=== PATIENT | male | born 1945 | race Caucasian/White ===

== ENCOUNTER → 2019-09-25 10:25 | Outpatient (CLI) | payer MEDICARE, BC, SELFPAY ==
--- NOTE | ~2019-09-25 | CT_ITS ---
EXAMINATION: CT chest wo con DATE: 09/25/2019 10:58 INDICATION: Abnormal weight loss, lung nodule, history of lung cancer TECHNIQUE: Computed tomography (CT) of the chest was performed without intravenous contrast. The dose -length product (DLP) was 544.76 mGy-cm. Automated exposure control and iterative reconstruction tech [employer] were employed. COMPARISON: 02/15/2017 FINDINGS: There is a stable paramediastinal/left hilar mass, consistent with treated malignancy. Ther e is mild to moderate emphysema. There are trace pleural effusions. No pneumothorax is identified. A pleural-based lipoma is noted on the right. The heart size is normal. There are changes of coronary a rtery bypass grafting. Stones are present in the nondistended gallbladder. There is moderate thoracic spondylosis. IMPRESSION: 1. Stable left paramediastinal/left hilar mass, consistent with treated malignancy. No new lung findi ngs identified. 2. Mild to moderate emphysema. Reviewed, dictated and finalized at location A. [employer]IC MOTORMAN IMPRESSION: 1. Stable left paramediastinal/left hilar mass, consistent with treated maligna ncy. No new lung findings identified. 2. Mild to moderate emphysema.
== END ==
PROVIDERS: PCP Internal Medicine; Visit Provider Internal Medicine
DX: R63.4 Abnormal weight loss (principal); R91.1 Solitary pulmonary nodule; J43.9 Emphysema, unspecified
CPT/HCPCS: 71250

== ENCOUNTER → 2020-04-07 10:51 | Outpatient (CLI) | payer MEDICARE, BC, SELFPAY ==
--- NOTE | ~2020-04-07 | XR_ITS ---
EXAMINATION: XR chest 2V EXAM DATE: 04/07/2020 11:25 INDICATION: Triple bypass. Chest congestion, leg swelling. TECHNIQUE: Frontal and lateral projections of the chest obtained and reviewed. Comparison is made to prior examination from 07/11/2019. FINDINGS: The cardiac silhouette is enlarged. Cardiac silhouette is stable in size compared to prior exam. There is pulmonary vascular congestion. Left hilar prominence again noted, patient has known t reated malignancy correlating with prior reports. Left pleural blunting which is probably pleural eff usion, is new compared to prior study. Sternotomy wires are present without findings to suggest chambers al dehiscence. There is no pneumothorax suspected. No evidence of acute confluent consolidation or pn eumothorax. There are no osseous abnormalities identified. IMPRESSION: 1. Cardiomegaly, pulmonary vascular congestion. Possible mild pulmonary edema. 2. Left hilar masslike opacity, patient's known malignancy. 3. Small left pleural effusion. Reviewed, dictated and finalized at location A.
== END ==
PROVIDERS: PCP Internal Medicine; Visit Provider Internal Medicine
DX: R06.00 Dyspnea, unspecified (principal); I51.7 Cardiomegaly; J90 Pleural effusion, not elsewhere classified
CPT/HCPCS: 71046

== ENCOUNTER 2020-12-21 10:47 | Emergency (ER) | payer MEDICARE, BC, SELFPAY ==
[2020-12-21] VITALS (7 sets, daily range): BP systolic 129–145; BP diastolic 75–99; PULSE 93–105; RESP 18–24; TEMP 36.4–36.7; O2SAT 26–100
--- NOTE | ~2020-12-21 | CT_ITS ---
EXAMINATION: CT abdomen pelvis w con DATE: 12/21/2020 12:46 INDICATION: Abdominal pain and vomiting TECHNIQUE: Computed tomography (CT) of the abdomen and pelvis was performed with 100 cc Omnipaque 350 intravenous contrast. The dose-length product was 677.39 mGy-cm. Automated exposure control and iter ative reconstruction technique were employed. COMPARISON: CT dated 05/01/2028. FINDINGS: Moderate left pleural effusion. Compressive atelectasis left lung base. Trace right pleural effusion. Moderate atherosclerosis without evidence for aneurysm. Fatty infiltration of the liver. There are gallstones. The spleen, pancreas, adrenal glands are unrem arkable. There is renal atrophy. Small subcentimeter hypodensities of the kidneys, most likely benign cysts. There are renal arterial calcifications. There is nonspecific trace fluid in the paracolic gu tters and pelvis. There is right inguinal hernia containing a segment of the bladder. There is mild b ladder wall thickening, although not well distended. Colonic diverticulosis without evidence for dive rticulitis. Normal appendix. No lymphadenopathy. Moderate lumbar spondylosis. No lytic or blastic les ions. There is a small amount of free fluid in the right inguinal canal. IMPRESSION: 1. Right inguinal hernia containing a segment of the bladder. There is additional fluid in the right inguinal canal. 2: Moderate left pleural effusion. Trace right effusion. 3: Hepatic steatosis. 4: Small amount of free fluid in the paracolic gutters and pelvis. 5: Cholelithiasis. Reviewed, dictated and finalized at location A. IMPRESSION: 1. Right inguinal hernia containing a segment of the bladder. There is addition al fluid in the right inguinal canal. 2: Moderate left pleural effusion. Trace right effusion. 3: Hepatic steatosis. 4: Small amount of free fluid in the paracolic gutters and pelvis. 5: Cholelithiasis.
--- NOTE | ~2020-12-21 | US_ITS ---
US abdomen limited INDICATION: Abdominal pain. PROCEDURE: Realtime right upper abdominal ultrasound. COMPARISON: CT dated 12/21/2020 FINDINGS: The pancreas is normal without focal mass or pancreatic ductal dilation. Liver echotexture is normal without focal mass or intrahepatic biliary dilatation. There is normal directional flow i n the portal vein. There are gallstones with mild gallbladder wall thickening. Common bile duct measures 6 mm. No sono graphic Helm's sign. IMPRESSION: 1: Cholelithiasis with gallbladder wall thickening. Consider cholecystitis in the appropriate clinica l setting. Reviewed, dictated and finalized at location A. IMPRESSION: 1: Cholelithiasis with gallbladder wall thickening. Consider cholecystitis in t he appropriate clinical setting.
--- NOTE | 2020-12-21 11:26 | ED.ABDPAIN ---
HPI - Abdominal Pain General Chief Complaint: Abdominal Pain Stated Complaint: abd pain Time Seen by Provider: 12/21/20 10:59 Source: patient Mode of arrival: wheelchair Limitations: no limitations History of Present Illness HPI narrative: This is a 75 year old male that presents to the ER for nausea and vomiting x 1 week. Associated with dull abdominal pain which is intermittent. Worse after eating. Also reports diarrhea. Denies fever, recent antibiotic use, dysuria, hematuria, or hematochezia. Related Data Home Medications Medication Instructions Recorded Confirmed carvedilol 6.25 mg tablet 6.25 mg PO Q12H 07/02/19 10/08/20 clopidogrel 75 mg tablet 75 mg PO DAILY 07/02/19 10/08/20 sacubitril 49 mg-valsartan 51 mg 1 tablet PO BID 07/02/19 10/08/20 tablet warfarin See Rx Instructions .ROUTE .COMPLEX 12/21/20 Allergies Allergy/AdvReac Type Severity Reaction Status Date / Time venom-honey bee Allergy Unknown Swelling Verified 12/21/20 11:12 of Lip/Tongue/Throat Review of Systems Review of Systems: Narrative: CONSTITUTIONAL: Denies fever GASTROINTESTINAL: Reports abdominal pain, nausea, vomiting, and diarrhea. GENITOURINARY: Denies dysuria or hematuria. All systems reviewed & are unremarkable except as noted in HPI and below PMFSH Past Medical History Medical History (Updated 12/21/20 @ 15:32 by Candace Wilks PA-C) CHF (congestive heart failure) COPD (chronic obstructive pulmonary disease) Coronary artery disease involving [place] coronary artery of [place] heart Hyperlipidemia PAD (peripheral artery disease) Surgical History Surgical History (Updated 12/21/20 @ 11:28 by Candace Wilks PA-C) Hx of CABG Social History Social History Smoking status: Former smoker Smoking end date: 08/15/05 Alcohol intake: current Exam Narrative: Exam Narrative: GENERAL: Elderly, well-nourished, and in no acute distress. HEAD: Normocephalic, atraumatic. EYES: EOMI. ENT: Mucous membranes moist. Oropharynx without tonsillar hypertrophy exudate or other lesions. CHEST: Clear to auscultation. No respiratory distress. No wheezes rales or rhonchi HEART: Regular rate and rhythm. No murmur heard. Normal peripheral pulses. ABDOMEN: Soft, nondistended, normal active bowel sounds. Mild tenderness to palpation throughout the abdomen, without guarding. No CVA tenderness EXTREMITIES: Normal range of motion. No edema. SKIN: Warm, dry, no rash. NEURO: No focal deficits. Alert and oriented x3. PSYCH: Normal mood and affect Course Consultations Consultation #1: Spoke with Dr. Olsen about patient and workup who would like patient started on Cipro 500 twice daily for a week and low-fat diet. Will follow-up with patient in clinic Date: 12/21/20 Time: 15:27 Consultation #2: Spoke with Dr. Kern consulting engineer for Dr. Alex about patient and work-up Date: 12/21/20 Time: 15:27 Vital Signs Vital signs: Vital Signs Temperature 97.6 F 12/21/20 11:03 Pulse Rate 105 H 12/21/20 11:03 Respiratory Rate 23 H 12/21/20 11:03 Blood Pressure 144/86 H 12/21/20 11:03 Pulse Oximetry 98 12/21/20 11:03 Temperature 98.1 F 12/21/20 15:01 Pulse Rate 99 12/21/20 15:01 Respiratory Rate 24 H 12/21/20 15:01 Blood Pressure 145/81 H 12/21/20 15:01 Pulse Oximetry 96 12/21/20 15:01 MDM - Abdominal Pain MDM Narrative Medical decision making narrative: Patient presents the emergency department for abdominal discomfort, nausea and vomiting. Intermittent over the last week. He is afebrile and nontoxic-appearing. Vitals are stable. Oxygen saturation is normal on room air. CBC is without leukocytosis. Does show normocytic anemia with hemoglobin of 13.1. Metabolic panel with transaminitis and hyperbilirubinemia. Lipase is normal. UA without evidence of infection. CT scan of the abdomen and pelvis shows a right inguinal hernia. Shows moderate left pleur
[2020-12-21 11:31] LABS: Basophils Absolute Auto 0.1 K/mm3 (0.0-0.1); Basophils Percent Auto 0.6 % (0.2-1.2); Eosinophils Absolute Auto 0.1 K/mm3 (0-0.3); Eosinophils Percent Auto 0.9 % (0-4.4); Hematocrit 38.9 % (42.0-52.0); Hemoglobin 13.1 g/dL (14.0-18.0); Immature Granulocyte Absolute 0.02 K/mm3 (0.00-0.031); Immature Granulocyte Percent A 0.3 % (0-0.5); Lymphocytes Absolute Auto 0.43 K/mm3 (0.9-3.2); Lymphocytes Percent Auto 5.4 % (18.3-44.2); Mean Corpuscular HGB Conc 33.7 g/dl (32-36); Mean Corpuscular Hemoglobin 31.5 pg (26-34); Mean Corpuscular Volume 93.5 fl (80-100); Mean Platelet Volume 9.7 fl (7.4-10.4); Monocytes Absolute Auto 0.8 K/mm3 (0.1-0.6); Monocytes Percent Auto 10.1 % (2.6-8.5); Neutrophils Absolute Auto 6.5 K/mm3 (1.3-6.7); Neutrophils Percent Auto 82.7 % (45.5-73.1); Platelet Count Result 209 k/mm3 (150-375); Red Blood Count 4.16 M/mm3 (4.6-6.20); Red Cell Distribution Width 15.9 % (11.5-14.5); White Blood Count 7.9 K/mm3 (4.5-10.0)
[2020-12-21 11:39] LABS: Add Urine Microscopic? YES; Appearance Urine Cloudy (Clear); Bilirubin Urine Negative (Negative); Blood Urine Negative (Negative); Color Urine Amber (Yellow); Glucose Urine UA Negative (Negative); Ketones Urine Trace mg/dL (Negative); Leukocyte Esterase Ur Negative LEU/UL (Negative); Mucus Urine Rare /lpf; Nitrate Urine Negative (Negative); Protein Urine 2+ mg/dL (Negative); RBC Urine 0-2 /hpf (0-2); Specific Grav Ur 1.019 (1.001-1.035); Squamous Epithelial Cell Urine Rare /hpf (Few); WBC Urine 0-3 /hpf
[2020-12-21 11:44] LABS: Alanine Aminotransferase 53 U/L (4-50); Albumin Level 4.2 g/dL (3.5-5.1); Alkaline Phosphatase 159 U/L (38-126); Anion Gap 8 mmol/L (8-16); Aspartate Amino Transferase 77 U/L (17-59); Bilirubin,Total 1.6 mg/dL (0.2-1.3); Blood Urea Nitrogen 27 mg/dL (9-20); Calcium 9.9 mg/dL (8.4-10.2); Carbon Dioxide 24 mmol/L (22-30); Chloride 103 mmol/L (98-107); Estimated CRCL calculation 55 ml/min; Estimated Glomerular Filt Rate 59; Glucose 108 mg/dL (75-110); Lipase 215 U/L (23-300); Potassium 4.6 mmol/L (3.4-5.0); Sodium 135 mmol/L (137-145)
[2020-12-21] MEDS: ONDANSETRON INJ 4 MG/2 ML VIAL IV PUSH (12:17)
[2020-12-21] MEDS: FAMOTIDINE 20 MG/2 ML VIAL IV PUSH (12:17)
== END 2020-12-21 16:38 | disposition home or self-care (01) ==
PROVIDERS: Emergency Provider Emergency Medicine; PCP Internal Medicine
DX: K80.20 Calculus of gallbladder without cholecystitis without obstruction (principal); J90 Pleural effusion, not elsewhere classified; I50.9 Heart failure, unspecified; J44.9 Chronic obstructive pulmonary disease, unspecified; I25.10 Atherosclerotic heart disease of native coronary artery without angina pectoris; E78.5 Hyperlipidemia, unspecified; I73.9 Peripheral vascular disease, unspecified; Z95.1 Presence of aortocoronary bypass graft; Z87.891 Personal history of nicotine dependence; K44.9 Diaphragmatic hernia without obstruction or gangrene; K76.0 Fatty (change of) liver, not elsewhere classified; Z79.01 Long term (current) use of anticoagulants
CPT/HCPCS: 36415; 74177; 76705; 80053; 81001; 83690; 85025; 96374; 96375; 99284; J0131; J2405; Q9967

== ENCOUNTER → 2021-01-17 06:26 | Outpatient (CLI) | payer MEDICARE, BC, SELFPAY ==
[2021-01-17 19:38] LABS: SARS-CoV-2 RNA PCR Negative
== END ==
PROVIDERS: PCP Internal Medicine; Visit Provider Internal Medicine
DX: Z01.818 Encounter for other preprocedural examination (principal); Z20.822 Contact with and (suspected) exposure to COVID-19
CPT/HCPCS: C9803; U0003; U0005

== ENCOUNTER 2021-05-14 09:44 | Emergency (ER) | payer MEDICARE, BC, SELFPAY ==
[2021-05-14 09:54] VITALS: BP 111/55; PULSE 92; RESP 14; TEMP 36.4; O2SAT 98
--- NOTE | 2021-05-14 09:55 | ED.GENADULT ---
HPI - General Adult General Chief complaint: Allergic Reaction Stated complaint: Poss Allergic Reaction Time Seen by Provider: 05/14/21 09:55 Source: patient and RN notes reviewed History of Present Illness HPI narrative: Patient is a 76-year-old male who presents the urgent care with his family member with complaints of left and right eye swelling with a rash to the left scalp. Patient states that it started on Tuesday after he mowed on Tuesday. Patient states that he has been taking Benadryl but it worsened overnight. States that the rash is burning and itchy. Denies of any trauma to the eye. Denies of any vision changes. No other acute complaints. No acute distress noted. Patient and family aware of the plan of care. Some parts of this dictation were generated by voice recognition software and may contain typographical and/or grammatical inaccuracies. Related Data Home Medications Medication Instructions Recorded Confirmed carvedilol 6.25 mg tablet 6.25 mg PO Q12H 07/02/19 05/14/21 clopidogrel 75 mg tablet 75 mg PO DAILY 07/02/19 05/14/21 sacubitril 49 mg-valsartan 51 mg 1 tablet PO BID 07/02/19 05/14/21 tablet potassium chloride [Klor-Con] 20 meq PO DAILY 05/14/21 05/14/21 sacubitril-valsartan [Entresto] 1 tablet PO BID 05/14/21 05/14/21 spironolactone 25 mg PO DAILY 05/14/21 05/14/21 Allergies Allergy/AdvReac Type Severity Reaction Status Date / Time venom-honey bee Allergy Unknown Swelling Verified 05/14/21 10:09 of Lip/Tongue/Throat Review of Systems Review of Systems: CONSTITUTIONAL: Denies fever, chills, or sweats. EYES: Reports of swelling to bilateral eyes with left eye drainage ENT: Denies rhinorrhea, congestion, sore throat, or otalgia. CARDIOVASCULAR: Denies chest pain, palpitations, or edema. RESPIRATORY: Denies cough or dyspnea. GASTROINTESTINAL: Denies abdominal pain, nausea, vomiting, or diarrhea. GENITOURINARY: Denies dysuria or hematuria. SKIN: Reports of an itchy burning rash to the scalp MUSCULOSKELETAL: Denies back pain, joint pain, or myalgia. NEUROLOGIC: Denies headache, numbness, or weakness. All other systems reviewed are negative, except as documented in HPI. PENDING SALE TO [facility] Past Medical History Medical History CHF (congestive heart failure) COPD (chronic obstructive pulmonary disease) Coronary artery disease involving [place] coronary artery of [place] heart Heart attack Heart disease History of blood clots Hx of cancer of lung Hyperlipidemia Lower extremity surgery planned PAD (peripheral artery disease) Surgical History Surgical History History of lung biopsy Hx of CABG Family History Family History Sibling , age 58 Brain cancer Social History Social History Smoking packs per day: 2 Smoking cigarettes per day: 40.0 Years smoked: 30 Smoking pack-years: 60.00 Smoking status: Former smoker Second hand tobacco smoke exposure: Yes Smoking end date: 08/15/05 Alcohol intake: current Alcohol use details: Social 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 There is no relevant family history pertinent to the patient complaint. Exam Narrative: GENERAL: This is a well-nourished, well-developed patient, in no apparent distress. HEAD: normocephalic, atraumatic. EYES: PERRL. Sclera clear/white. Vision is grossly intact. Mild to moderate fluid filled edema surrounding the left eye with clear to yellow drainage. Mild fluid-filled edema to the right lower eyelid without drainage. EARS: External ears normal NOSE: External nose normal with no obvious nasal discharge, nares without redness, n
[2021-05-14 10:12] VITALS: BP 111/55; PULSE 92; RESP 14; TEMP 36.4; O2SAT 98
== END 2021-05-14 10:40 | disposition home or self-care (01) ==
PROVIDERS: Emergency Provider Nurse Practitioner Family; PCP Internal Medicine
DX: L03.213 Periorbital cellulitis (principal); H10.9 Unspecified conjunctivitis; Z87.891 Personal history of nicotine dependence; J44.9 Chronic obstructive pulmonary disease, unspecified; I50.9 Heart failure, unspecified; I25.10 Atherosclerotic heart disease of native coronary artery without angina pectoris; E78.5 Hyperlipidemia, unspecified; I73.9 Peripheral vascular disease, unspecified; Z85.118 Personal history of other malignant neoplasm of bronchus and lung; Z86.2 Personal history of diseases of the blood and blood-forming organs and certain disorders involving the immune mechanism; Z95.1 Presence of aortocoronary bypass graft; I25.2 Old myocardial infarction
CPT/HCPCS: 99213; G0463

== ENCOUNTER 2021-10-14 14:23 | Outpatient (CLI) | payer MEDICARE, BC, SELFPAY ==
--- NOTE | ~2021-10-14 | XR_ITS ---
EXAMINATION: XR chest 2V EXAM DATE: 10/14/2021 14:55 INDICATION: K40.20 - Bilateral inguinal hernia, without obstruction o... TECHNIQUE: Frontal and lateral projections of the chest obtained and reviewed. Comparison is made to prior examination from 04/07/2020. FINDINGS: Sternotomy wires are present without findings to suggest sternal dehiscence. Left hilar. T reated malignancy appears stable in size. No sizable pleural effusion. No pneumothorax. There is mild cardiomegaly. IMPRESSION: 1. Stable treated left hilar malignancy. 2. Mild cardiomegaly. Reviewed, dictated and finalized at location B.
--- NOTE | 2021-10-14 14:30 | ECG_ITS ---
Measurements Intervals [place] Rate: 86 P: 61 LA: 216 QRS: -78 QRSD: 144 T: 90 QT: 420 QTc: 503 Interpretive Statements SINUS RHYTHM WITH FIRST DEGREE AV BLOCK MARKED LEFT AXIS DEVIATION [QRS AXIS < -30] ANTEROSEPTAL INFARCTION, AGE INDETERMINATE LATERAL T-WAVE ABNORMALITY, CONSIDER ISCHEMIA ABNORMAL ECG NO PREVIOUS ECG AVAILABLE FOR COMPARISON Electronically Signed On 10-14-2021 16:06:11 COMMERCIAL LENDING VICE PRESIDENT by Mike Messer M.D.
[2021-10-14 14:56] LABS: Basophils Percent Auto 0.5 % (0.2-1.2); Eosinophils Absolute Auto 0.2 K/mm3 (0-0.3); Eosinophils Percent Auto 2.3 % (0-4.4); Hematocrit 36.9 % (42.0-52.0); Hemoglobin 11.9 g/dL (14.0-18.0); Immature Granulocyte Absolute 0.02 K/mm3 (0.00-0.031); Immature Granulocyte Percent A 0.3 % (0-0.5); Lymphocytes Absolute Auto 0.67 K/mm3 (0.9-3.2); Lymphocytes Percent Auto 8.7 % (18.3-44.2); Mean Corpuscular HGB Conc 32.2 g/dl (32-36); Mean Corpuscular Hemoglobin 31.6 pg (26-34); Mean Corpuscular Volume 98.1 fl (80-100); Mean Platelet Volume 9.4 fl (7.4-10.4); Monocytes Absolute Auto 0.9 K/mm3 (0.1-0.6); Monocytes Percent Auto 11.3 % (2.6-8.5); Neutrophils Absolute Auto 5.9 K/mm3 (1.3-6.7); Neutrophils Percent Auto 76.9 % (45.5-73.1); Platelet Count Result 187 k/mm3 (150-375); Red Blood Count 3.76 M/mm3 (4.6-6.20); Red Cell Distribution Width 13.8 % (11.5-14.5); White Blood Count 7.7 K/mm3 (4.5-10.0)
[2021-10-14 15:06] LABS: INR 2.2; Partial Thromboplastin Time 36.6 SECONDS (22.3-36.8); Prothrombin Time 23.6 Seconds (11.1-14.7)
[2021-10-14 15:07] LABS: Anion Gap 11 mmol/L (8-16); Blood Urea Nitrogen 26 mg/dL (9-20); Calcium 9.3 mg/dL (8.4-10.2); Carbon Dioxide 23 mmol/L (22-30); Chloride 106 mmol/L (98-107); Estimated Glomerular Filt Rate > 60; Glucose 99 mg/dL (65-110); Sodium 140 mmol/L (137-145)
== END 2021-10-14 14:24 | disposition home or self-care (01) ==
LOC: ANHSURGERY 14:27
PROVIDERS: Anesthesiology; PCP Internal Medicine; Visit Provider Surgery
DX: K40.20 Bilateral inguinal hernia, without obstruction or gangrene, not specified as recurrent (principal); I50.9 Heart failure, unspecified; Z79.01 Long term (current) use of anticoagulants; I44.0 Atrioventricular block, first degree
CPT/HCPCS: 36415; 71046; 80048; 85025; 85610; 85730; 86850; 86900; 86901; 93005

== ENCOUNTER → 2021-10-17 00:05 | Outpatient (CLI) | payer MEDICARE, BC, SELFPAY ==
[2021-10-17 11:49] LABS: SARS-CoV-2 RNA PCR Negative
== END ==
PROVIDERS: PCP Internal Medicine; Visit Provider Surgery
DX: Z01.812 Encounter for preprocedural laboratory examination (principal); Z20.822 Contact with and (suspected) exposure to COVID-19
CPT/HCPCS: C9803; U0003; U0005

== ENCOUNTER 2021-10-21 00:13 | Day surgery (SDC) | payer MEDICARE, BC, SELFPAY ==
[2021-10-09 14:54] VITALS: BMI 27.8
--- NOTE | 2021-10-09 15:20 | PC.NURSE ---
Report to the Outpatient Waiting Room, entrance under the green pavilion located off [facility], at time _0700_ on date _10/21/21_. OR Time: _0900_. - You and your visitor will be asked a series of questions to screen for COVID 19 for your protection. - A mask is required within the hospital. One visitor will be allowed to accompany the patient into the hospital. Patients visitor will be instructed to remain with patient at all times or leave the building. We will allow the visitor to come back to the postoperative area when patient is ready. Preoperative COVID Testing Requirements: COVID TEST SCHEDULED FOR 10/17/21 @ 0815 COVID test must be conducted within 72 hours of surgery and patient is asked to isolate self from time of testing until procedure. You will go to the [facility] for your COVID testing. The [facility] is located at the corner of [address] [facility]. You will only be called if COVID results are positive and your surgeon may reschedule your elective surgery date. Patients may have clear liquids (water, carbonated beverages, clear teas, apple juice) until 3 hours prior to surgery (0600 AM) with a maximum of 20 ounces. - No food from midnight until time of surgery Take the following medications with a SIP of water the morning of surgery: _CARVEDILOL, SYMBICORT INHALER_ Medications to discontinue per DR. VITAL - CLOPIDOGREL 5 DAYS PRIOR TO SURGERY, LAST DOSE TO BE TAKEN ON 10/15/21, WARFARIN 4 DAYS PRIOR TO SURGERY, LAST DOSE TO BE TAKEN ON 10/16/21 Please no deodorant, or body powder the day of surgery. No jewelry (including any body piercings) or valuables the day of surgery, leave them at home. Please take a shower or bath the night before, or the morning of, surgery with an antibacterial soap. Wear comfortable, loose fitting clothing. Children are encouraged to wear pajamas. - Jewelry must be removed prior to entering the operating room. Rings and piercings that are not removed may be cut off. - The hospital will not accept responsibility for valuables. - Please leave all valuables, including medications, at home the day of surgery. If you are going home after surgery, a licensed tank wagon driver must drive you home. - NO public transportation without another adult. - We recommend that an adult stay with you for 24 hours following discharge. - We also recommend that you do not drive, make important decision, drink alcoholic beverages, or take any drugs that were not prescribed by your health care provider for at least 24 hours after your discharge time. Follow any additional instructions given to you from your surgeon. MONA SHOWER AM OF SURGERY Telephone instructions given to ___PT and asked if any additional questions and then verbalized understanding. Patient advised to call surgeon office or pre surgery nurse liaisonGONZÁLEZ [phone] if any additional questions.
--- NOTE | 2021-10-20 12:38 | WPDANESEPPF ---
Anes - Initial Pre Proc Eval Procedure: Operation Date: 10/21/21 09:00 Proposed Procedures p Bilateral Inguinal Hernia Repair - Ricci Olsen MD Date/Time: 10/20/21 12:38 Surgeon: Ricci Olsen MD Pre Op Diagnosis: Umair Ing Hernia Patient Data Age: 76 Gender: M Height: 1.68 m Weight: 78.18 kg Allergies Allergy/AdvReac Type Severity Reaction Status Date / Time venom-honey bee Allergy Severe Swelling Verified 10/21/21 07:46 of Lip/Tongue/Throat Home Medications Medication Instructions Recorded Confirmed Type carvedilol 6.25 mg tablet 6.25 mg PO Q12H 07/02/19 10/09/21 History clopidogrel 75 mg tablet 75 mg PO DAILY 07/02/19 10/09/21 History sacubitril 49 mg-valsartan 51 mg 1 tablet PO BID 07/02/19 10/09/21 History tablet spironolactone 12.5 mg PO DAILY 05/14/21 10/09/21 History atorvastatin 20 mg QAM 10/09/21 10/09/21 History budesonide-formoterol [Symbicort] 2 inh BID 10/09/21 10/09/21 History furosemide 20 mg QAM 10/09/21 10/09/21 History warfarin 4 mg HS 10/09/21 10/09/21 History Patient hx anesthesia problems: none Family hx anesthesia problems: none Results Review: All pre-operative results and documents have been reviewed as part of the pre-operative evaluation. [facility] Past Medical History Medical History (Updated 10/21/21 @ 07:44 by Aramis Alves DO) CHF (congestive heart failure) EF 42% as of 06/2021 COPD (chronic obstructive pulmonary disease) Coronary artery disease involving [place] coronary artery of [place] heart DVT (deep venous thrombosis) Heart attack Heart disease History of blood clots Hx of cancer of lung Hyperlipidemia Lower extremity surgery planned PAD (peripheral artery disease) PVD (peripheral vascular disease) Surgical History Surgical History (Updated 10/21/21 @ 07:44 by Aramis Alves DO) History of lung biopsy Hx of CABG x3, 2011 Family History Family History Sibling , age 58 Brain cancer Father Acute myocardial infarction Mother Dementia Social History Social History Smoking packs per day: 2 Smoking cigarettes per day: 40.0 Years smoked: 30 Smoking pack-years: 60.00 Smoking status: Former smoker Tobacco type: cigarettes Second hand tobacco smoke exposure: No Smoking end date: 08/15/05 Alcohol intake: current Drinks per week: 6 Alcohol use details: Social Substance use: never Substance use type: does not use Living arrangements: with family 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 Informed Consent: The patient's anesthetic plan and its attendant risks and benefits were discussed with the patient/family/POA. Questions were solicited and answers provided to the satisfaction of the patient/family/POA.
--- NOTE | 2021-10-20 13:14 | PM.IMHP ---
H&P: HPI History of Present Illness Date/Time: 10/20/21 13:14 Chief Complaint: Symptomatic inguinal hernias Narrative: patient is a 76-year-old man who has a long history of both coronary artery disease and cardiac valvular disease. He had a TAVR procedure last May. This improved his heart function significantly. He has also had coronary bypass grafting as well as coronary stentings. He normally takes both warfarin and Plavix. He was seen in the office last winter with symptomatic bilateral inguinal hernias. The right-sided hernia is large, the left-sided hernia is smaller but is the more symptomatic hernia. After speaking with his certified medical aide at [facility], his anticoagulation could not really be stopped until September. He is taken to surgery at this time for bilateral inguinal hernia repair. Cardiology feels it is reasonably safe to stop both of his anticoagulants, the Plavix and the warfarin prior to surgery. Patient also has had a left femoral popliteal artery bypass. He has had lung cancer status post radiation therapy and chemotherapy. Review of Systems Review of Systems: All systems reviewed & are unremarkable except as noted in HPI and below ( HPI and those items noted below) Constitutional: Constitutional: Denies chills, Denies fever(s), Denies headache(s), Reports lethargy and Denies night sweats Eyes: Eyes: Reports eye discharge Gastrointestinal: Gastrointestinal: Reports as per HPI and Reports abdominal pain Genitourinary: Genitourinary: Reports as per HPI, Reports urinary frequency and Reports urinary incontinence Hematologic/Lymphatic: Hematologic/Lymphatic: Reports as per HPI, Reports easy bleeding and Reports easy bruising PMFSH Past Medical History Medical History CHF (congestive heart failure) COPD (chronic obstructive pulmonary disease) Coronary artery disease involving [place] coronary artery of [place] heart DVT (deep venous thrombosis) Heart attack Heart disease History of blood clots Hx of cancer of lung Hyperlipidemia Lower extremity surgery planned PAD (peripheral artery disease) PVD (peripheral vascular disease) Surgical History Surgical History History of lung biopsy Hx of CABG x3 Family History Family History Sibling , age 58 Brain cancer Father Acute myocardial infarction Mother Dementia Social History Social History Smoking packs per day: 2 Smoking cigarettes per day: 40.0 Years smoked: 30 Smoking pack-years: 60.00 Smoking status: Former smoker Tobacco type: cigarettes Second hand tobacco smoke exposure: No Smoking end date: 08/15/05 Alcohol intake: current Drinks per week: 6 Alcohol use details: Social Substance use: never Substance use type: does not use 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 Spiritual care concerns: No Meds Home Medications and Allergies Home Medications Medication Instructions Recorded Confirmed Type carvedilol 6.25 mg tablet 6.25 mg PO Q12H 07/02/19 10/09/21 History clopidogrel 75 mg tablet 75 mg PO DAILY 07/02/19 10/09/21 History sacubitril 49 mg-valsartan 51 mg 1 tablet PO BID 07/02/19 10/09/21 History tablet spironolactone 12.5 mg PO DAILY 05/14/21 10/09/21 History atorvastatin 20 mg QAM 10/09/21 10/09/21 History budesonide-formoterol [Symbicort] 2 inh BID 10/09/21 10/09/21 History furosemide 20 mg QAM 10/09/21 10/09/21 History warfarin 4 mg HS 10/09/21 10/09/21 History Allergies Allergy/AdvReac Type Severity Reaction Status Date / Time venom-honey bee Allergy Unknown Swelling Verified 10/09/21 14:47 of Lip/Tongue/Throat Exam Const: General: comfortable, no acute distress, alert and awake HENMT: Head: normocephali
--- NOTE | 2021-10-21 07:12 | WPDHPUPDATE1 ---
History and Physical Update Update Date/Time: 10/21/21 07:12 History and Physical has been reviewed, including an updated exam of the patient. There are NO changes in the patient's condition. Risks, benefits, and alternatives have been discussed and questions answered. Patient agrees to proceed with procedure.
[2021-10-21 07:38] VITALS: BP 109/63; PULSE 80; RESP 16; TEMP 37.3; O2SAT 100
[2021-10-21] MEDS: LACTATED RINGERS 1,000 ML 30 ML IV CONT (08:01)
[2021-10-21] MEDS: ACETAMINOPHEN 500 MG TABLET 1000 MG PO (08:02)
[2021-10-21] MEDS: KETOROLAC 15 MG/ML VIAL (*BKC) IV PUSH (08:05)
[2021-10-21 08:23] LABS: INR 1.4; Prothrombin Time 16.7 Seconds (11.1-14.7)
[2021-10-21 08:24] LABS: Partial Thromboplastin Time 30.3 SECONDS (22.3-36.8)
[2021-10-21] MEDS: ceFAZolin 2 GM/D5W 50 ML 2 GM/50 ML BAG IVPB (08:39)
[2021-10-21] MEDS: BUPIVACAINE/EPINEPHRINE 0.25% 10 ML VIAL 60 ML INFILTRATE (09:18)
[2021-10-21 11:09] VITALS: BP 86/57; PULSE 87; RESP 12; TEMP 36.2; O2SAT 95
[2021-10-21 11:20] VITALS: BP 92/56; PULSE 87; RESP 12; O2SAT 95
[2021-10-21 11:30] VITALS: BP 100/60; PULSE 86; RESP 16; O2SAT 86
--- NOTE | 2021-10-21 11:35 | W.PM.PROC2 ---
Procedure Note - Detailed Date of Procedure 10/21/21 Pre-op Diagnosis Umair Ing Hernia Post-op Diagnosis Same Procedure Performed Bilateral inguinal hernia repair with mesh Surgeon Ricci Olsen MD Remarketing Manager Fatuma BERRY Anesthesia General (G IV S) and Local (0.25% Marcaine with epinephrine, Xaracoll) Indications The patient has bilateral inguinal hernias. The left is more painful for him than the right. He is taken to surgery now for bilateral inguinal hernia repair. Findings The left-sided hernia was an indirect hernia and was larger than the right side. The right-sided hernia was a direct hernia. Both sides were larger defects. An extra-large PerFix plug light was used for each repair. Description of Procedure The patient was taken to surgery and IV sedation was administered. Prep and drape of both groins was carried out. We started on the left side. The proposed incision was marked on the skin. Local was infiltrated in the area of the anticipated incision. Incision was made dissection was carried down through subcutaneous and eventually to the external oblique aponeurosis. The aponeurosis and the external ring was exposed. Additional local was infiltrated deep to the aponeurosis in the area of the spermatic cord and inguinal canal contents. We then opened the aponeurosis laterally and extended this medially through the external ring. The ilioinguinal nerve was left attached to the cord and was avoided through the surgery. We freed the leaves of the aponeurosis from the inguinal canal contents. I then mobilized the cord medially on a Félix drain. I further mobilized the cord back to the internal ring dividing cremasteric fibers. It was obvious there was a large hernia present as it was a bulky spermatic cord with attached hernia. I dissected anteromedially in the spermatic cord and found the hernia sac easily. We dissected out some of the hernia sac and then clamped it near its end. We continued dissecting cord structures from the hernia and dissected back to the internal ring. Additional cremasteric fibers were divided and the cord was further mobilized so that the internal ring was well able to be visualized. Dissection of the hernia sac was continued and a high dissection was performed. I then dunked the hernia sac into the retroperitoneum. An extra-large perfect plug light was used. This was placed in the defect. I sutured the edges of the plug to the transversalis fascia with interrupted 3-0 Vicryl suture. I then partially closed the defect with some interrupted 3-0 Vicryl suture. I cut the patch to the appropriate size and placed it over the inguinal canal floor. The lateral leaves were passed beyond the cord. I then placed 1/2 of a Xaracoll directly over the mesh. One package of Xaracoll was used for both hernia repairs. Half was used for the left side and half was later used on the right side. I then placed the cord and ilioinguinal nerve over the patch and the Xaracoll. The external oblique aponeurosis was then closed with interrupted 3-0 Vicryl suture. More Xaracoll was placed over the aponeurosis. Fermin's fascia was closed with interrupted 3-0 Vicryl suture. Final placement of Xaracoll was in the subcutaneous. The skin was loosely approximated with 4-0 Vicryl subcuticular skin sutures. The skin was closed with running 4-0 Monocryl skin suture. We then covered the left-sided incision with a sterile towel. The surgeon and 1st pastoral assistant changed sides. I marked a right-sided incision to be a mirror image of the left-sided incision. I infiltrated local into the right-sided incision and into the subcutaneous. Incision was made dissection was carried down through the subcutaneous and to the external oblique aponeurosis. The aponeurosis was exposed as was the external ring. I then infiltrated additional local deep to the aponeurosis into the area of the inguinal canal and spermatic cord. The aponeurosis was opene
[2021-10-21 12:00] VITALS: BP 96/64; PULSE 83; RESP 16
[2021-10-21 12:30] VITALS: BP 88/55; PULSE 78; RESP 16
--- NOTE | 2021-10-21 17:02 | SUR.PHASEII ---
at 1156 dr richardson came to see pt and said he was good to be discharged
== END 2021-10-21 12:57 | disposition home or self-care (01) ==
PROVIDERS: Anesthesiology; PCP Internal Medicine; Visit Provider Surgery
PROC: (CPT 49505; principal; 2021-10-21 09:00)
DX: K40.20 Bilateral inguinal hernia, without obstruction or gangrene, not specified as recurrent (principal); I50.9 Heart failure, unspecified; J44.9 Chronic obstructive pulmonary disease, unspecified; I25.10 Atherosclerotic heart disease of native coronary artery without angina pectoris; E78.5 Hyperlipidemia, unspecified; I73.9 Peripheral vascular disease, unspecified; Z86.718 Personal history of other venous thrombosis and embolism; Z85.118 Personal history of other malignant neoplasm of bronchus and lung; Z79.02 Long term (current) use of antithrombotics/antiplatelets; Z79.01 Long term (current) use of anticoagulants; Z95.1 Presence of aortocoronary bypass graft; Z87.891 Personal history of nicotine dependence; Z92.3 Personal history of irradiation; Z92.21 Personal history of antineoplastic chemotherapy; Z95.2 Presence of prosthetic heart valve
CPT/HCPCS: 49505; 36415; 85610; 85730; A9270; C1781; J0690; J1200; J1885; J2250; J2270; J2370; J2704; J3010; J7120

== ENCOUNTER 2023-07-05 01:02 | Day surgery (SDC) | payer MEDICARE, BC, SELFPAY ==
[2023-06-29 13:23] VITALS: BMI 29.9
--- NOTE | 2023-07-01 14:47 | SUR.PREOP ---
Patient called regarding upcoming procedure. Reviewed preop instructions, appointment times, and procedure prep.
[2023-07-05 12:47] VITALS: BP 140/68; PULSE 91; RESP 17; TEMP 36.3; O2SAT 100; BMI 29.5
[2023-07-05] MEDS: GENTAMICIN 80MG/SOD CHL 50 ML 80 MG/50 ML BAG 100 MG IVPB (13:03)
[2023-07-05] MEDS: LACTATED RINGERS 1,000 ML 150 ML IV CONT (13:04)
--- NOTE | 2023-07-05 13:12 | WPDANESEPPF ---
Anes - Initial Pre Proc Eval Procedure: Operation Date: 07/05/23 14:00 Proposed Procedures p Colonoscopy - Shadi Burt MD Date/Time: 07/05/23 13:12 Surgeon: Shadi Burt MD Pre Op Diagnosis: other fecal abnormalities,anemia Patient Data Age: 78 Gender: M Height: 1.68 m Weight: 82.9 kg Last Vital Signs Temp 97.3 F L 07/05/23 12:47 Pulse 91 07/05/23 12:47 Resp 17 07/05/23 12:47 BP 140/68 07/05/23 12:47 Pulse Ox 100 07/05/23 12:47 O2 Del Method Room Air 07/05/23 12:47 Allergies Allergy/AdvReac Type Severity Reaction Status Date / Time venom-honey bee Allergy Severe Swelling Verified 07/05/23 12:43 of Lip/Tongue/Throat Home Medications Medication Instructions Recorded Confirmed Type carvedilol 6.25 mg tablet 6.25 mg PO Q12H 07/02/19 07/05/23 History clopidogrel 75 mg tablet 75 mg PO DAILY 07/02/19 07/05/23 History furosemide 20 mg tablet 20 mg PO QAM 10/09/21 07/05/23 History budesonide-formoterol HFA 160 2 inh inhalation BID #30.6 grams 11/30/22 07/05/23 Rx mcg-4.5 mcg/actuation aerosol inhaler (Symbicort) atorvastatin 20 mg tablet 20 mg PO QAM #90 tabs 02/14/23 07/05/23 Rx icbjhitu-ek-sulxp 300 mcg-K 60 1 tablet PO DAILY 06/29/23 07/05/23 History mcg-lycop 600 mcg-lutein 300 mcg tablet (Centrum Silver Men) sacubitril 24 mg-valsartan 26 mg 1 tablet PO DAILY 06/29/23 07/05/23 History tablet (Entresto) warfarin 1 mg tablet 2 mg PO 2XW 06/29/23 07/05/23 History warfarin 4 mg tablet 4 mg PO 5XW 06/29/23 07/05/23 History Patient hx anesthesia problems: none Family hx anesthesia problems: none Results Review: All pre-operative results and documents have been reviewed as part of the pre-operative evaluation. [facility] Past Medical History Medical History CHF (congestive heart failure) EF 42% as of 06/2021 COPD (chronic obstructive pulmonary disease) Coronary artery disease involving [place] coronary artery of [place] heart DVT (deep venous thrombosis) Heart attack Heart disease History of blood clots Hx of cancer of lung Hyperlipidemia Lower extremity surgery planned PAD (peripheral artery disease) PVD (peripheral vascular disease) Surgical History Surgical History H/O inguinal hernia repair bilateral 10/21/21 History of lung biopsy Hx of CABG x, 2011 Family History Family History Sibling , age 58 Brain cancer Father Acute myocardial infarction Mother Dementia Social History Social History Smoking packs per day: 1.5 Smoking cigarettes per day: 30.0 Years smoked: 30 Smoking pack-years: 45.00 Smoking status: Former smoker Tobacco type: cigarettes Second hand tobacco smoke exposure: No Smoking end date: 08/15/05 Alcohol intake: current Drinks per week: 6 Alcohol use details: BEERS Substance use: never Substance use type: does not use Lack of Transportation: No Lack of Food: Never True Current Housing: Decline to Answer Concerned About Future Housing: No Difficulty Paying Gas/Electric Bills: No Difficulty Paying for Meds: No Currently Unemployed: No Education: Associate Degree Difficulty w/ Childcare or Family Care: No Living arrangements: with family Occupation/Education: retired 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
--- NOTE | 2023-07-05 13:15 | WPDANESEPPF ---
Anes - Initial Pre Proc Eval Procedure: Operation Date: 07/05/23 14:00 Proposed Procedures p Colonoscopy - Shadi Burt MD Date/Time: 07/05/23 13:15 Surgeon: Shadi Burt MD Pre Op Diagnosis: other fecal abnormalities,anemia Patient Data Age: 78 Gender: M Height: 1.68 m Weight: 82.9 kg Last Vital Signs Temp 97.3 F L 07/05/23 12:47 Pulse 91 07/05/23 12:47 Resp 17 07/05/23 12:47 BP 140/68 07/05/23 12:47 Pulse Ox 100 07/05/23 12:47 O2 Del Method Room Air 07/05/23 12:47 Allergies Allergy/AdvReac Type Severity Reaction Status Date / Time venom-honey bee Allergy Severe Swelling Verified 07/05/23 12:43 of Lip/Tongue/Throat Home Medications Medication Instructions Recorded Confirmed Type carvedilol 6.25 mg tablet 6.25 mg PO Q12H 07/02/19 07/05/23 History clopidogrel 75 mg tablet 75 mg PO DAILY 07/02/19 07/05/23 History furosemide 20 mg tablet 20 mg PO QAM 10/09/21 07/05/23 History budesonide-formoterol HFA 160 2 inh inhalation BID #30.6 grams 11/30/22 07/05/23 Rx mcg-4.5 mcg/actuation aerosol inhaler (Symbicort) atorvastatin 20 mg tablet 20 mg PO QAM #90 tabs 02/14/23 07/05/23 Rx eyyofhlo-az-vkjlu 300 mcg-K 60 1 tablet PO DAILY 06/29/23 07/05/23 History mcg-lycop 600 mcg-lutein 300 mcg tablet (Centrum Silver Men) sacubitril 24 mg-valsartan 26 mg 1 tablet PO DAILY 06/29/23 07/05/23 History tablet (Entresto) warfarin 1 mg tablet 2 mg PO 2XW 06/29/23 07/05/23 History warfarin 4 mg tablet 4 mg PO 5XW 06/29/23 07/05/23 History Patient hx anesthesia problems: none Family hx anesthesia problems: none Results Review: All pre-operative results and documents have been reviewed as part of the pre-operative evaluation. [facility] Past Medical History Medical History CHF (congestive heart failure) EF 42% as of 06/2021 COPD (chronic obstructive pulmonary disease) Coronary artery disease involving [place] coronary artery of [place] heart DVT (deep venous thrombosis) Heart attack Heart disease History of blood clots Hx of cancer of lung Hyperlipidemia Lower extremity surgery planned PAD (peripheral artery disease) PVD (peripheral vascular disease) Surgical History Surgical History H/O inguinal hernia repair bilateral 10/21/21 History of lung biopsy Hx of CABG x, 2011 Family History Family History Sibling , age 58 Brain cancer Father Acute myocardial infarction Mother Dementia Social History Social History Smoking packs per day: 1.5 Smoking cigarettes per day: 30.0 Years smoked: 30 Smoking pack-years: 45.00 Smoking status: Former smoker Tobacco type: cigarettes Second hand tobacco smoke exposure: No Smoking end date: 08/15/05 Alcohol intake: current Drinks per week: 6 Alcohol use details: BEERS Substance use: never Substance use type: does not use Lack of Transportation: No Lack of Food: Never True Current Housing: Decline to Answer Concerned About Future Housing: No Difficulty Paying Gas/Electric Bills: No Difficulty Paying for Meds: No Currently Unemployed: No Education: Associate Degree Difficulty w/ Childcare or Family Care: No Living arrangements: with family 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
--- NOTE | 2023-07-05 13:17 | PM.HPGS ---
History of Present Illness History of Present Illness Consent: Risks, benefits, and alternatives have been discussed and questions answered. Patient agrees to proceed with procedure. Chief complaint: other fecal abnormalities,anemia Narrative: Milton Oliver is a 78 year old male with last colonoscopy more than 10 years ago, had + cologuard Review of Systems Constitutional: Constitutional: Denies headache(s) and Denies weakness Eyes: Eyes: Denies blurry vision ENT: Reports Normal hearing present, Denies headache(s) and Denies neck pain Cardiovascular: Cardiovascular: Denies chest pain and Denies dyspnea Respiratory: Respiratory: Denies dyspnea Gastrointestinal: Gastrointestinal: Reports no additional gastrointestinal complaints Genitourinary: Genitourinary: Denies dysuria Musculoskeletal: Musculoskeletal: Denies neck pain Integumentary/Breasts: Skin/Breast: Denies dry skin Neurologic: Reports Normal hearing present, Denies headache(s) and Denies weakness Psychiatric: Psychiatric: Denies anxiety Endocrine: Endocrine: Denies change in body appearance Hematologic/Lymphatic: Hematologic/Lymphatic: Denies easy bleeding Allergic/Immunologic: Allergic/Immunologic: Denies urticaria [facility] Past Medical History Medical History (Updated 07/05/23 @ 13:17 by Shadi Burt MD) CHF (congestive heart failure) EF 42% as of 06/2021 COPD (chronic obstructive pulmonary disease) Coronary artery disease involving [place] coronary artery of [place] heart DVT (deep venous thrombosis) Heart attack Heart disease History of blood clots Hx of cancer of lung Hyperlipidemia Lower extremity surgery planned PAD (peripheral artery disease) Positive colorectal cancer screening using Cologuard test PVD (peripheral vascular disease) Surgical History Surgical History H/O inguinal hernia repair bilateral 10/21/21 History of lung biopsy Hx of CABG x3, 2011 Family History Family History Sibling , age 58 Brain cancer Father Acute myocardial infarction Mother Dementia Social History Social History Smoking packs per day: 1.5 Smoking cigarettes per day: 30.0 Years smoked: 30 Smoking pack-years: 45.00 Smoking status: Former smoker Tobacco type: cigarettes Second hand tobacco smoke exposure: No Smoking end date: 08/15/05 Alcohol intake: current Drinks per week: 6 Alcohol use details: BEERS Substance use: never Substance use type: does not use Lack of Transportation: No Lack of Food: Never True Current Housing: Decline to Answer Concerned About Future Housing: No Difficulty Paying Gas/Electric Bills: No Difficulty Paying for Meds: No Currently Unemployed: No Education: Associate Degree Difficulty w/ Childcare or Family Care: No Living arrangements: with family Occupation/Education: retired 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 Spiritual care concerns: No Meds Home Medications and Allergies Home Medications Medication Instructions Recorded Confirmed Type carvedilol 6.25 mg tablet 6.25 mg PO Q12H 07/02/19 07/05/23 History clopidogrel 75 mg tablet 75 mg PO DAILY 07/02/19 07/05/23 History furosemide 20 mg tablet 20 mg PO QAM 10/09/21 07/05/23 History budesonide-formoterol HFA 160 2 inh inhalation BID #30.6 grams 11/30/22 07/05/23 Rx mcg-4.5 mcg/actuation aerosol inhaler (Symbicort) atorvastatin 20 mg tablet 20 mg PO QAM #90 tabs 02/14/23 07/05/23 Rx xogxooez-nw-wtfuo 300 mcg-K 60 1 tablet PO DAILY 06/29/23 07/05/23 History mcg-lycop 600 mcg-lutein 300 mcg tablet (Centrum Silver Men) sacubitril 24 mg-valsartan 26 mg 1 tablet PO DAILY 06/29/23 07/05/23 History tablet (Entresto) warfarin 1 mg tablet 2 mg PO 2XW 06/29/23 07/05/23 History warfarin 4 m
[2023-07-05] MEDS: AMPICILLIN 2 GM/NS 100 ML 2 GM/100 ML BAG IVPB (13:23)
[2023-07-05 13:52] VITALS: BP 109/57; PULSE 88; RESP 22; O2SAT 99
[2023-07-05 14:02] VITALS: BP 124/68; PULSE 58; RESP 20; O2SAT 100
[2023-07-05 14:12] VITALS: BP 129/72; PULSE 64; RESP 18; O2SAT 99
== END 2023-07-05 14:25 | disposition home or self-care (01) ==
PROVIDERS: PCP Nurse Practitioner Family; Visit Provider Internal Medicine Gastroenterology
PROC: 0DJD8ZZ Inspection of Lower Intestinal Tract, Via Natural or Artificial Opening Endoscopic (ICD-10-PCS; CPT 45378; principal; 2023-07-05 14:00)
DX: R19.5 Other fecal abnormalities (principal); K57.30 Diverticulosis of large intestine without perforation or abscess without bleeding; K64.8 Other hemorrhoids; D12.2 Benign neoplasm of ascending colon; D12.3 Benign neoplasm of transverse colon; D12.5 Benign neoplasm of sigmoid colon; E78.5 Hyperlipidemia, unspecified; I50.9 Heart failure, unspecified; J44.9 Chronic obstructive pulmonary disease, unspecified; I25.10 Atherosclerotic heart disease of native coronary artery without angina pectoris; I25.2 Old myocardial infarction; Z79.02 Long term (current) use of antithrombotics/antiplatelets; Z79.51 Long term (current) use of inhaled steroids; Z79.01 Long term (current) use of anticoagulants; Z95.1 Presence of aortocoronary bypass graft; Z87.891 Personal history of nicotine dependence; Z86.718 Personal history of other venous thrombosis and embolism; Z86.79 Personal history of other diseases of the circulatory system; Z85.118 Personal history of other malignant neoplasm of bronchus and lung; Z80.8 Family history of malignant neoplasm of other organs or systems; Z82.49 Family history of ischemic heart disease and other diseases of the circulatory system; E66.9 Obesity, unspecified; Z68.29 Body mass index [BMI] 29.0-29.9, adult
CPT/HCPCS: 45380; 45385; 88305; J0290; J1580; J2001; J2704; J7120

== ENCOUNTER 2023-12-12 14:35 | Outpatient (CLI) | payer MEDICARE, BC, SELFPAY ==
--- NOTE | ~2023-12-12 | CT_ITS ---
CT Scan of the Chest without Contrast: Clinical Indication: Ischemic cardiomyopathy, pleural effusion Technique: Contiguous sections were acquired throughout the chest without intravenous contrast. Dose reduction technique was used on this scan by utilizing automated exposure control and iterative recon struction technique. The dose-length product (DLP) was 409.91 mGy-cm. Findings: There is no evidence of any significant mediastinal, hilar or axillary lymphadenopathy. There are ext ensive atherosclerotic calcifications of the aorta and coronary arteries. Aortic valve replacement pr esent. No pericardial effusion. Small right pleural effusion present with probable mild chronic interstitial changes peripherally in the right lung. Large left pleural effusion is present, possibly partially loculated superiorly. There is extensive l eft upper lobe consolidation and left perihilar consolidation. Images through the upper abdomen reveal small calcified gallstones. Impression: Large left pleural effusion, possibly partially loculated superiorly. Left perihilar and left upper lobe consolidation. Correlate for atelectasis versus possibly malignanc y or sequelae of treated disease. Correlation with any relevant clinical history and/or treatment his tory is recommended. Small right pleural effusion with possible minimal peripheral chronic interstitial change in the righ t lung. Cholelithiasis. Reviewed, dictated and finalized at location . Impression: Large left pleural effusion, possibly partially loculated superiorly. Left perihilar and left upper lobe consolidation. Correlate for atelectasis [place] possibly malignancy or sequelae of treated disease. Correlation with any re levant clinical history and/or treatment history is recommended. Small right pleural effusion with possible minimal peripheral chronic interstit ial change in the right lung. Cholelithiasis.
== END 2023-12-12 14:36 ==
LOC: MICIMG 14:37
PROVIDERS: PCP Internal Medicine Cardiovascular Disease; Visit Provider Internal Medicine Cardiovascular Disease
DX: I25.5 Ischemic cardiomyopathy (principal); J90 Pleural effusion, not elsewhere classified; R91.8 Other nonspecific abnormal finding of lung field; K80.20 Calculus of gallbladder without cholecystitis without obstruction
CPT/HCPCS: 71250

== ENCOUNTER 2023-12-22 17:21 | Inpatient (IN) | payer MEDICARE, BC, SELFPAY ==
--- NOTE | ~2023-12-22 | CT_ITS ---
EXAMINATION: CT abdomen pelvis w con DATE: 12/22/2023 18:56 INDICATION: Abdominal pain TECHNIQUE: Computed tomography (CT) of the abdomen and pelvis was performed with 100 mL Omnipaque-350 intravenous contrast. Automated exposure control and iterative reconstruction technique were employe d. The dose-length product was 465.96 mGy-cm. COMPARISON: Chest CT dated 12/12/[address] abdomen and pelvis dated 12/31/2020 FINDINGS: Partially visualized small right and large left pleural effusions with dependent atelectasis in both lower lobes. New 5 x 7 mm nodule in the anterobasilar right lower lobe which given the development in approximately 1 week would be most consistent with either atelectasis or an infectious/inflammatory etiology. Mild cardiomegaly. Atherosclerotic coronary artery calcifications. Change of prior median s ternotomy and coronary artery bypass grafting. There is also been prior aortic valve repair. Mild foc al hepatic steatosis at the ligamentum teres. There are few small calcified gallstones at the depende nt aspect of the normal incompletely distended gallbladder. Spleen, pancreas, bilateral adrenal gland s are normal. There is likely age-related mild bilateral renal atrophy. 1.4 cm left renal cyst. There is moderate sigmoid predominant diverticulosis without adjacent inflammatory change to suggest diver ticulitis. There is a short segment of small bowel which extends into a large right inguinal hernia. There is no upstream dilation to suggest obstruction. The segment within the hernia however is fluid- filled and demonstrates mucosal hyperenhancement relative to the remainder of the small bowel which r aises concern for incarceration. There are small regions of near fluid attenuation located at entranc e to the bilateral inguinal canals likely representing plugs for prior bilateral inguinal hernia repa irs. Normal appendix. Bladder is normal. Minimal likely reactive free fluid in the deep pelvis. No ab scess or free intraperitoneal gas. No pathologically enlarged abdominal or pelvic lymphadenopathy. Mo derate thoracic and severe lumbar spondylosis. IMPRESSION: 1. No discernible mucosal enhancement/with a small segment of small bowel which extends into a large right inguinal hernia raising concern for incarceration. Dr. Silva discussed these findings with Evelyn Nevarez at 5:13 PM. 2. No significant change in small right and large left pleural effusions. 3. Cholelithiasis. Reviewed, dictated and finalized at location A. IMPRESSION: 1. No discernible mucosal enhancement/with a small segment of small bowel which extends into a large right inguinal hernia raising concern for incarceration. Dr. Silva discussed these findings with Dr. Nevarez at 5:13 PM. 2. No significant change in small right and large left pleural effusions. 3. Cholelithiasis.
--- NOTE | ~2023-12-22 | XR_ITS ---
EXAMINATION: [id number]_[id number]_CR DATE: 12/28/2023 09:43 INDICATION: Thoracentesis TECHNIQUE: frontal and lateral views of the chest were obtained. COMPARISON: Chest radiograph dated 12/27/2023 FINDINGS: Minimal change in airspace opacities in the left lung with lower lung predominance consistent with pe rsistent moderate-sized left pleural effusion and associated atelectasis. Underlying pneumonia not ex cludable. Hazy airspace opacities and increased interstitial pattern in the right mid and lower lung zones consistent with mild pulmonary edema and possible additional small posterior layering right ple ural effusion. No pneumothorax. Cardiomegaly. Median sternotomy wires and mediastinal surgical clips are seen, likely from prior coronary artery bypass grafting. There has also been prior aortic valve r epair. IMPRESSION: 1. Moderate-sized left and possible small right pleural effusions. 2. Consolidation at the left lower lung zone most likely compressive atelectasis although differentia l includes pneumonia. 3. Likely congestive heart failure with cardiomegaly and mild pulmonary edema. Reviewed, dictated and finalized at location A. IMPRESSION: 1. Moderate-sized left and possible small right pleural effusions. 2. Consolidation at the left lower lung zone most likely compressive atelectasi s although differential includes pneumonia. 3. Likely congestive heart failure with cardiomegaly and mild pulmonary edema.
--- NOTE | ~2023-12-22 | US_ITS ---
EXAMINATION: US thoracentesis DATE: 12/28/2023 10:02 INDICATION: Left pleural effusion TECHNIQUE: The procedure and its risks and benefits were discussed with the patient. Potential risks discussed included bleeding, infection, and pneumothorax. The patient understood the risks and agreed to proceed. The skin was prepped and draped in sterile fashion. 1% lidocaine was used for local anes thesia. Under ultrasound guidance, a 5 Fr catheter with trochar was advanced into the left pleural ef fusion. Fluid was aspirated. The catheter was removed, and a dressing was applied. There were no imme diate complications. FINDINGS: Ultrasound images demonstrate a large left pleural effusion and the catheter within the fluid. IMPRESSION: 1. Successful ultrasound-guided thoracentesis yielding 1100 mL of light yellow fluid. Reviewed, dictated and finalized at location A.
--- NOTE | ~2023-12-22 | US_ITS ---
EXAMINATION: US renal BI DATE: 12/24/2023 11:53 INDICATION: WALKER TECHNIQUE: Multiple grayscale and Doppler ultrasound images of the kidneys were obtained. COMPARISON: CT abdomen pelvis 12/22/2023 FINDINGS: The right kidney measures 11.5 x 6.1 x 5.6 cm. The left kidney measures 11.0 x 5.2 x 5.1 cm. The kidn eys demonstrate increased parenchymal echogenicity. Simple 1.5 cm left renal cyst There is no hydrone phrosis. The bladder is incompletely distended, no definite wall thickening. IMPRESSION: Medical renal disease. Reviewed, dictated and finalized at location K. IMPRESSION: Medical renal disease.
--- NOTE | ~2023-12-22 | XR_ITS ---
EXAMINATION: XR chest 1V portable DATE: 01/01/2024 05:56 INDICATION: Pleural effusion. TECHNIQUE: A single frontal view of the chest was obtained. COMPARISON: Chest single view 12/29/2023, CT abdomen and pelvis 12/22/2023, chest CT 09/25/2019 FINDINGS: There is a diffuse interstitial pattern, consistent with chronic lung disease. There is a m oderate-sized left pleural effusion. There are airspace opacities at left lung base. There are chroni c airspace opacities in left perihilar region and left upper lobe. No pneumothorax. Cardiomegaly is n oted. There are changes of aortic valve replacement. Median sternotomy wires and mediastinal surgical clips are seen, likely from prior coronary artery bypass grafting. There are surgical clips in left axilla. IMPRESSION: 1. Stable moderate-sized left pleural effusion. 2. Stable airspace opacities at left lung base, consistent with atelectasis versus pneumonia. 3. Chronic airspace opacities in left perihilar region and left upper lobe, consistent with radiation fibrosis. 4. Cardiomegaly. Reviewed, dictated and finalized at location A. IMPRESSION: 1. Stable moderate-sized left pleural effusion. 2. Stable airspace opacities at left lung base, consistent with atelectasis [place] pneumonia. 3. Chronic airspace opacities in left perihilar region and left upper lobe, con sistent with radiation fibrosis. 4. Cardiomegaly.
--- NOTE | ~2023-12-22 | XR_ITS ---
EXAMINATION: XR chest 1V portable DATE: 12/27/2023 14:06 INDICATION: Left pleural effusion. TECHNIQUE: A single frontal view of the chest was obtained. COMPARISON: CT abdomen and pelvis 12/22/2023 FINDINGS: There is a moderate-sized left pleural effusion. There is a diffuse interstitial pattern in the lungs, consistent with mild pulmonary edema. There are airspace opacities in left lung, likely a telectasis. No pneumothorax. Cardiomegaly is noted. There are changes of aortic valve replacement. Me milan sternotomy wires are noted. IMPRESSION: 1. Mild pulmonary edema. 2. Moderate-sized left pleural effusion. 3. Cardiomegaly. Reviewed, dictated and finalized at location A.
--- NOTE | ~2023-12-22 | XR_ITS ---
EXAMINATION: [id number]_CR DATE: 12/29/2023 10:14 INDICATION: Left pleural effusion TECHNIQUE: frontal view of the chest was obtained. COMPARISON: Chest radiograph dated 12/28/2023 FINDINGS: Opacities in the right lower lung zone consistent with a now decreased small residual left pleural ef fusion postthoracentesis. Mild hazy opacities at the right lower lung zone and could not exclude a ve ry small posterior layering right pleural effusion. No pneumothorax. Heart size is normal. Median jorge rnotomy wires and mediastinal surgical clips are seen, likely from prior coronary artery bypass graft ing. Aortic valve repair. IMPRESSION: 1. Decreased now small left pleural effusion with associated basilar atelectasis versus pneumonia. 2. Possible very small right pleural effusion. Reviewed, dictated and finalized at location A. IMPRESSION: 1. Decreased now small left pleural effusion with associated basilar atelectasi s versus pneumonia. 2. Possible very small right pleural effusion.
--- NOTE | ~2023-12-22 | US_ITS ---
EXAMINATION: US thoracentesis DATE: 12/29/2023 10:14 INDICATION: Left pleural effusion TECHNIQUE: The procedure and its risks and benefits were discussed with the patient. Potential risks discussed included bleeding, infection, and pneumothorax. The patient understood the risks and agreed to proceed. The skin was prepped and draped in sterile fashion. 1% lidocaine was used for local anes thesia. Under ultrasound guidance, a 5 Fr catheter with trochar was advanced into the left pleural ef fusion. Fluid was aspirated. The catheter was removed, and a dressing was applied. There were no imme diate complications. FINDINGS: Ultrasound images demonstrate a moderate to large left pleural effusion and the catheter within the f luid. IMPRESSION: 1. Successful ultrasound-guided thoracentesis yielding 1000 mL of bassam-colored fluid. Reviewed, dictated and finalized at location A. IMPRESSION: 1. Successful ultrasound-guided thoracentesis yielding 1000 mL of bassam-colore d fluid.
[2023-12-22 17:31] VITALS: BP 109/61; PULSE 74; RESP 18; TEMP 36.6; O2SAT 99
--- NOTE | 2023-12-22 17:47 | ED.GENADULT ---
HPI - General Adult General Chief complaint: Abdominal Pain <Rosalia Nevarez, BEVERAGE MANAGER - Last Filed: 12/22/23 17:50> Stated complaint: groin pain <Rosalia Nevarez, BEVERAGE MANAGER - Last Filed: 12/22/23 17:50> Time Seen by Provider: 12/22/23 17:47 <Rosalia Jason December, BEVERAGE MANAGER - Last Filed: 12/22/23 17:50> Focused HPI: Milton Oliver is a 78 y/o male who presents today with reports of having right lower groin pain that started about 1 and 1/2 hours ago. He has not urinated since the pain started. He does think he has a hernia in that area. rates pain at a 10 No testicular pain He states he had some abdominal pain before this pain started. GENERAL: Well-appearing, well-nourished, and in no acute distress. HEAD: Normocephalic, atraumatic. CHEST: Clear to auscultation. ?No respiratory distress. HEART: Regular rate and rhythm.? NEURO: ?Alert and oriented x3. Patient screened in triage and initial orders placed.? ?Additional care and disposition to be based upon?diagnostic testing and treatment. <Rosalia Jason December, BEVERAGE MANAGER - Last Filed: 12/22/23 17:50> Related Data Home medications: Home Medications Medication Instructions Recorded Confirmed carvedilol 6.25 mg tablet 6.25 mg PO Q12H 07/02/19 12/22/23 clopidogrel 75 mg tablet 75 mg PO DAILY 07/02/19 12/22/23 furosemide 20 mg tablet 20 mg PO QAM 10/09/21 12/22/23 [id number]-ff-[id number] 300 mcg-K 60 1 tablet PO DAILY 06/29/23 12/22/23 mcg-lycop 600 mcg-lutein 300 mcg tablet (Centrum Silver Men) sacubitril 24 mg-valsartan 26 mg 1 tablet PO DAILY 06/29/23 12/22/23 tablet (Entresto) warfarin 1 mg tablet 2 mg PO 3XW 06/29/23 12/22/23 warfarin 4 mg tablet 4 mg PO 4XW 06/29/23 12/22/23 atorvastatin 20 mg tablet 20 mg PO QAM 12/22/23 12/22/23 <Rosalia Nevarez, BEVERAGE MANAGER - Last Filed: 12/22/23 17:50> Allergies/adverse reactions: Allergies Allergy/AdvReac Type Severity Reaction Status Date / Time venom-honey bee Allergy Severe Swelling Verified 12/16/23 10:17 of Lip/Tongue/Throat <Rosalia Jason December, - Last Filed: 12/22/23 17:50> Review of Systems Review of Systems: CONSTITUTIONAL: Denies fever GASTROINTESTINAL: Reports abdominal pain, nausea, vomiting <Candace Wilks PA-C - Last Filed: 12/23/23 02:48> All systems reviewed & are unremarkable except as noted in HPI and below <Candace Wilks PA-C - Last Filed: 12/23/23 02:48> [facility] Past Medical History Medical History: Medical History CHF (congestive heart failure) EF 42% as of 06/2021 COPD (chronic obstructive pulmonary disease) Coronary artery disease involving [place] coronary artery of [place] heart DVT (deep venous thrombosis) Heart attack Heart disease History of blood clots Hx of cancer of lung Hyperlipidemia Lower extremity surgery planned PAD (peripheral artery disease) Positive colorectal cancer screening using Cologuard test PVD (peripheral vascular disease) <Rosalia Jason December, - Last Filed: 12/22/23 17:50> Surgical History Surgical History: Surgical History H/O inguinal hernia repair bilateral 10/21/21 History of lung biopsy Hx of CABG x3, 2011 <Rosalia Jason December, - Last Filed: 12/22/23 17:50> Family History Family History: Family History Sibling , age 58 Brain cancer Father Acute myocardial infarction Mother Dementia <Rosalia Nevarez - Last Filed: 12/22/23 17:50> Social History Social History: Social History Smoking packs per day: 1.5 Smoking cigarettes per day: 30.0 Years smoked: 41 Smoking pack-years: 61.50 Smoking status: Former smoker Tobacco type: cigarettes Second hand tobacco smoke exposure: No Smoking end date: 08/15/05 Alcohol intake: current Drinks per week: 1 Alcohol use details: BEERS Subs
[2023-12-22] MEDS: FAMOTIDINE 20 MG/2 ML VIAL IV PUSH (18:00)
[2023-12-22] MEDS: ONDANSETRON INJ 4 MG/2 ML VIAL IV PUSH (18:01)
[2023-12-22] MEDS: KETOROLAC 15 MG/ML VIAL (*BKC) IV PUSH (18:01)
[2023-12-22 18:14] LABS: Basophils Absolute Auto 0.1 K/mm3 (0.0-0.1); Eosinophils Absolute Auto 0.2 K/mm3 (0-0.3); Eosinophils Percent Auto 3.4 % (0-4.4); Hematocrit 35.3 % (42.0-52.0); Hemoglobin 11.6 g/dL (14.0-18.0); Immature Granulocyte Absolute 0.02 K/mm3 (0.00-0.031); Immature Granulocyte Percent A 0.4 % (0-0.5); Lymphocytes Absolute Auto 0.49 K/mm3 (0.9-3.2); Lymphocytes Percent Auto 9.7 % (18.3-44.2); Mean Corpuscular HGB Conc 32.9 g/dl (32-36); Mean Corpuscular Hemoglobin 29.5 pg (26-34); Mean Corpuscular Volume 89.8 fl (80-100); Mean Platelet Volume 9.1 fl (7.4-10.4); Monocytes Absolute Auto 0.6 K/mm3 (0.1-0.6); Monocytes Percent Auto 12.7 % (2.6-8.5); Neutrophils Absolute Auto 3.7 K/mm3 (1.3-6.7); Neutrophils Percent Auto 72.8 % (45.5-73.1); Platelet Count Result 181 k/mm3 (150-375); Red Blood Count 3.93 M/mm3 (4.6-6.20); Red Cell Distribution Width 15.9 % (11.5-14.5)
[2023-12-22 18:24] LABS: Lactic Acid Reflex 1.7 mmol/L (0.7-2.0)
[2023-12-22 18:25] LABS: Alanine Aminotransferase 26 U/L (6-50); Alkaline Phosphatase 168 U/L (38-126); Anion Gap 9 mmol/L (4-12); Aspartate Amino Transferase 35 U/L (17-59); Bilirubin,Total 1.3 mg/dL (0.2-1.3); Blood Urea Nitrogen 13 mg/dL (9-20); Calcium 9.6 mg/dL (8.4-10.2); Carbon Dioxide 24 mmol/L (22-30); Chloride 100 mmol/L (98-107); Estimated CRCL calculation 62 ml/min; Estimated Glomerular Filt Rate > 60; Glucose 108 mg/dL (65-110); Potassium 3.8 mmol/L (3.4-5.0); Sodium 133 mmol/L (137-145)
[2023-12-22] MEDS: MORPHINE SULFATE (*CRX) 4 MG/ML INJ IV PUSH ×2 (19:46→22:38)
[2023-12-22] MEDS: ceFAZolin SODIUM 1 GM VIAL IV PUSH (20:20)
[2023-12-22 20:50] LABS: Lipase 205 U/L (23-300)
--- NOTE | 2023-12-22 20:55 | PM.IMHP ---
H&P: HPI History of Present Illness Date/Time: 12/22/23 20:55 Chief Complaint: RIGHT GROIN PAIN Narrative: THIS IS A 78-YEAR-OLD MALE WITH PAST MEDICAL HISTORY SIGNIFICANT FOR CORONARY ARTERY DISEASE, STATUS POST TRIPLE BYPASS SURGERY, PERIPHERAL VASCULAR DISEASE, STATUS POST BYPASS, COPD/ EMPHYSEMA, CONGESTIVE HEART FAILURE, DEEP VEIN THROMBOSIS, ME. PATIENT WAS BROUGHT TO THE EMERGENCY ROOM DUE TO ABDOMINAL PAIN LOCALIZED TO THE RIGHT GROIN AREA OF 1 DAY DURATION, PATIENT DENIES ANY MELENA, BRIGHT RED BLOOD PER RECTUM, NO HEMATEMESIS NO COFFEE-GROUND EMESIS HAS HAD SOME NAUSEA AND DRY HEAVING BUT NO VOMITING. PRELIMINARY WORKUP WAS SIGNIFICANT FOR CT OF ABDOMEN AND PELVIS WITH INCARCERATED HERNIA. MOST OF THE HISTORY WAS OBTAINED FROM WHO IS AT BEDSIDE EXAMINATION: CT abdomen pelvis w con DATE: 12/22/2023 18:56 INDICATION: Abdominal pain TECHNIQUE: Computed tomography (CT) of the abdomen and pelvis was performed with 100 mL Omnipaque-350 intravenous contrast. Automated exposure control and iterative reconstruction technique were employed. The dose-length product was 465.96 mGy-cm. COMPARISON: Chest CT dated 12/12/[address] abdomen and pelvis dated 12/31/2020 FINDINGS: Partially visualized small right and large left pleural effusions with dependent atelectasis in both lower lobes. New 5 x 7 mm nodule in the anterobasilar right lower lobe which given the development in approximately 1 week would be most consistent with either atelectasis or an infectious/inflammatory etiology. Mild cardiomegaly. Atherosclerotic coronary artery calcifications. Change of prior median sternotomy and coronary artery bypass grafting. There is also been prior aortic valve repair. Mild focal hepatic steatosis at the ligamentum teres. There are few small calcified gallstones at the dependent aspect of the normal incompletely distended gallbladder. Spleen, pancreas, bilateral adrenal glands are normal. There is likely age-related mild bilateral renal atrophy. 1.4 cm left renal cyst. There is moderate sigmoid predominant diverticulosis without adjacent inflammatory change to suggest diverticulitis. There is a short segment of small bowel which extends into a large right inguinal hernia. There is no upstream dilation to suggest obstruction. The segment within the hernia however is fluid-filled and demonstrates mucosal hyperenhancement relative to the remainder of the small bowel which raises concern for incarceration. There are small regions of near fluid attenuation located at entrance to the bilateral inguinal canals likely representing plugs for prior bilateral inguinal hernia repairs. Normal appendix. Bladder is normal. Minimal likely reactive free fluid in the deep pelvis. No abscess or free intraperitoneal gas. No pathologically enlarged abdominal or pelvic lymphadenopathy. Moderate thoracic and severe lumbar spondylosis. IMPRESSION: 1. No discernible mucosal enhancement/with a small segment of small bowel which extends into a large right inguinal hernia raising concern for incarceration. Dr. Silva discussed these findings with Dr. Nevarez at 5:13 PM. 2. No significant change in small right and large left pleural effusions. 3. Cholelithiasis. Review of Systems Review of Systems: ROS unobtainable: Yes unobtainable due to mental status ( LETHARGY) [facility] Past Medical History Medical History (Updated 12/23/23 @ 04:39 by Sara High MD) CHF (congestive heart failure) EF 42% as of 06/2021 COPD (chronic obstructive pulmonary disease) Coronary artery disease involving [place] coronary artery of [place] heart DVT (deep venous thrombosis) Heart attack Heart disease History of blood clots Hx of cancer of lung Hyperlipidemia Lower extremity surgery planned PAD (peripheral artery disease) Positive colorectal cancer screening using Cologuard test PVD (peripheral vascular disease) Surgical History Surgical History (Reviewed 12/22/23 @ 23:06 by Brooklyn Gold
[2023-12-22 21:02] VITALS: BP 107/71; PULSE 86; RESP 19; O2SAT 93
[2023-12-22 22:39] VITALS: BMI 30.2
--- NOTE | 2023-12-22 22:40 | ADMGEN ---
This patient, Milton Oliver, was admitted to [facility] Surg Room 314-01 at 2230. Patient/family oriented to hospital policies and general routines including ID bracelet, bed and alarms, visiting hours, pain management, procedures, bathroom and other care routines, personal items, smoking policy, room service/diet, and visiting hours. Information on how to activate the Rapid Response Team has been discussed. Patient/Family are encouraged to report perceived risks to care and to ask questions if they do not understand what they are told or what they should do.
[2023-12-22 22:49] VITALS: BP 134/85; PULSE 89; RESP 14; TEMP 36.4; O2SAT 95
[2023-12-22] MEDS: IBUPROFEN IV 800 MG/200 ML 800 MG/200 ML BAG 400 MG IVPB (23:26)
[2023-12-23 03:46] LABS: Appearance Urine Clear (Clear); Bacteria Urine None Seen /hpf; Bilirubin Urine Negative (Negative); Blood Urine Negative (Negative); Color Urine Dark Yellow (Yellow); Glucose Urine UA Negative (Negative); Ketones Urine Trace mg/dL (Negative); Leukocyte Esterase Ur Negative LEU/UL (Negative); Need Manual Microscopic Reviewed; Nitrate Urine Negative (Negative); Non Pathogenic Casts 0-2; Protein Urine 2+ mg/dL (Negative); RBC Urine 0-2 /hpf (0-2); Squamous Epithelial Cell Urine None Seen /hpf (Few); Urobilinogen Urine 0.2 mg/dL (<2.0); WBC Urine 0-5 /hpf (0-3)
[2023-12-23 03:50] LABS: Specific Grav Ur 1.083 (1.001-1.035)
[2023-12-23 03:51] LABS: Add Urine Microscopic? YES
[2023-12-23 05:31] VITALS: BP 116/67; PULSE 68; PULSE 85; RESP 12; TEMP 36.2; O2SAT 96
[2023-12-23] MEDS: IBUPROFEN IV 800 MG/200 ML 800 MG/200 ML BAG 400 MG IVPB (05:31)
[2023-12-23] MEDS: carvediloL 6.25 MG TABLET PO ×2 (05:31→20:49)
[2023-12-23] MEDS: ceFAZolin 1 GM/NS 50 ML 1 GM/50 ML BAG IVPB (06:16)
[2023-12-23] MEDS: ATORVASTATIN 20 MG TABLET PO (07:53)
[2023-12-23] MEDS: PANTOPRAZOLE 40 MG TABLET PO (07:54)
[2023-12-23] MEDS: SACUBITRIL/VALSARTAN 24-26 MG TABLET 1 TAB PO ×2 (08:00→20:49)
[2023-12-23 08:04] LABS: Hematocrit 35.8 % (42.0-52.0); Hemoglobin 11.3 g/dL (14.0-18.0); Mean Corpuscular HGB Conc 31.6 g/dl (32-36); Mean Corpuscular Hemoglobin 29.6 pg (26-34); Mean Corpuscular Volume 93.7 fl (80-100); Mean Platelet Volume 9.5 fl (7.4-10.4); Platelet Count Result 157 k/mm3 (150-375); Red Blood Count 3.82 M/mm3 (4.6-6.20); Red Cell Distribution Width 15.9 % (11.5-14.5); White Blood Count 4.9 K/mm3 (4.5-10.0)
[2023-12-23 08:07] LABS: Anion Gap 10 mmol/L (4-12); Blood Urea Nitrogen 16 mg/dL (9-20); Calcium 9.2 mg/dL (8.4-10.2); Carbon Dioxide 23 mmol/L (22-30); Chloride 102 mmol/L (98-107); Estimated CRCL calculation 48 ml/min; Estimated Glomerular Filt Rate 59; Glucose 74 mg/dL (65-110); Potassium 4.5 mmol/L (3.4-5.0); Sodium 135 mmol/L (137-145)
[2023-12-23 08:12] LABS: INR 1.9
[2023-12-23 08:13] LABS: Partial Thromboplastin Time 43.4 Seconds (22.3-36.8)
[2023-12-23] MEDS: FLUTICASONE/SALMETEROL 115-21 MCG INHALER 1 PUFF 2 PUFF INHALATION ×2 (08:17→21:09)
[2023-12-23 11:03] VITALS: BMI 30.2
--- NOTE | 2023-12-23 13:24 | PM.CNPUL ---
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 A chest CT scan also revealed a small pleural effusion on the right, in addition to the left pleural effusion. The patient has a history of congestive heart failure and has been managed by Cardiology Services for several years. The differential diagnosis for the left pleural effusion could be CHF, particularly given the presence of a smaller pleural effusion on the right, or it could be related to his previous malignancy. He also had a respiratory infection in August of this year, so there's a slim chance that this could be a complicated parapneumonic effusion resulting from that infection. The plan moving forward is to conduct a thoracentesis once his INR levels decrease. The case has been discussed with the hospitalist; I will continue to monitor the patient's respiratory status in collaboration with you. (2) Hx of cancer of lung: Code(s): Z85.118 - Personal history of other malignant neoplasm of bronchus and lung Status: Chronic (3) CHF (congestive heart failure): Qualifiers: Heart failure type: unspecified Heart failure chronicity: unspecified Qualified Code(s): I50.9 - Heart failure, unspecified Code(s): I50.9 - Heart failure, unspecified Status: Chronic (4) Hx of CABG: Code(s): Z95.1 - Presence of aortocoronary bypass graft Status: Chronic (5) Incarcerated inguinal hernia: Code(s): K40.30 - Unilateral inguinal hernia, with obstruction, without gangrene, not specified as recurrent Status: Acute (6) longterm (current) use of anticoagulants: Code(s): 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 The patient was admitted to the hospital due to right lower quadrant pain, which was associated with an inguinal hernia. The patient's past medical history includes significant conditions such as congestive heart failure, coronary artery disease, a previous myocardial infarction, status post-transcatheter aortic valve replacement (TAVR) for aortic stenosis, peripheral vascular disease, mild obstructive airway disease and lung cancer. In 2000, he was diagnosed with small cell lung cancer after a lung biopsy of a nodule. His treatment plan included radiation and chemotherapy, but no lung resection. He underwent annual surveillance for lung cancer and was discharged from oncology care around 2012. He mentioned that his health was stable until last August when he experienced a respiratory illness with symptoms of coughing and sputum production, but no fever. He was evaluated at an urgent care center and received a 10-day antibiotic treatment. However, no x-rays were taken to confirm pneumonia. 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 The CT scan also showed a relatively large pleural effusion with associated atelectasis, but no evidence of a mass or lung consolidation. Surgical Services evaluated the patient, who is scheduled for inguinal hernia surgery. Upon admission, his INR was prolonged because he has been on anticoagulant me
--- NOTE | 2023-12-23 13:43 | PM.CNCAR ---
Assessment and Plan Assessment and plan (1) History of transcatheter aortic valve replacement (TAVR): Code(s): Z95.2 - Presence of prosthetic heart valve Status: Chronic (2) Hx of CABG: Code(s): Z95.1 - Presence of aortocoronary bypass graft Status: Chronic Plan This is a 78-year-old man with multivessel coronary artery disease valvular heart disease and left ventricular systolic dysfunction who is anticipating right inguinal hernia repair while in the hospital. This probably will not occur until next week since he is systemically anticoagulated with warfarin although I do not have the surgeons note yet on the chart for my personal review. Regarding his heart disease he is known to have total occlusion of all his [place] coronary arteries he is completely graft dependent and has a normally functioning aortic valve TAVR prosthesis that was deployed about 4 years ago for treatment of his aortic valve stenosis. With respect to his heart disease he is clinically stable given his underlying coronary heart disease his surgical risk is somewhat elevated but he appears to be optimized. I would agree with the plans to withdraw both warfarin and clopidogrel prior to herniorrhaphy. He has not had any recent ischemic symptoms and he is on appropriate medical therapy for LV dysfunction. His carvedilol and Entresto have been and should be continued. Will follow him with you during this hospitalization but at this point I would consider elevated risk but optimized for surgery Ezequiel Gallagher MD [facility] History of Present Illness History of Present Illness Consult date/time: 12/23/23 13:43 Reason For Visit: Incarcerated inguinal hernia Narrative: This is a 78-year-old man with coronary heart disease, valvular heart disease and left ventricular systolic dysfunction who is followed by my partner, Dr. Rosales . I am seeing him today at the request of the surgeons to participate in cardiac risk assessment prior to noncardiac surgery. The patient came to the hospital was admitted yesterday with significant right groin pain was found to have a apparently a large incarcerated inguinal hernia. The surgeon was able to reduce this on physical exam and the patient was told that he will require surgical repair of this. He does not offer any immediate cardiac symptoms such as chest pain dyspnea orthopnea PND edema or palpitations. He has a history of coronary artery disease having undergone surgical revascularization in the remote past. He is known to have total occlusion of all of his [place] coronary arteries and a previous right mammary graft to his LAD and a vein graft to the OM circumflex and a radial artery graft to the right coronary artery. He was followed for years in the office and has gradually developed significant valvular heart disease with severe aortic stenosis and moderate mitral regurgitation. In 2019 he underwent treatment of his aortic stenosis with a TAVR procedure at [facility]. Since then he has been followed by my partner as well as the Heart failure group at [place]. He has clinically been doing reasonably well. He is on guideline directed medical therapy for left ventricular dysfunction as well as anti-platelet therapy and systemic anticoagulation with warfarin. According to my partners notes the exact reason for systemic anticoagulation is unclear to him. In any event prior to hernia repair we have asked to see him for a consultation. Review of Systems Constitutional: Constitutional: Reports fatigue Eyes: Eyes: Reports no additional eye complaints ENT: Reports system reviewed and no additional complaints, except as documented Cardiovascular: Cardiovascular: Reports no additional cardiovascular complaints Respiratory: Respiratory: Reports dyspnea on exertion Gastrointestinal: Gastrointestinal: Reports as per HPI Genitourinary: Genitourinary: Reports no additional male genitourinary complaints Musculoskele
[2023-12-23 14:00] VITALS: BP 100/64; PULSE 88; RESP 14; TEMP 36.8; O2SAT 92
--- NOTE | 2023-12-23 14:39 | PM.CNGS ---
Assessment and Plan Assessment and plan (1) Recurrent inguinal hernia of right side with obstruction: Code(s): K40.31 - Unilateral inguinal hernia, with obstruction, without gangrene, recurrent Status: Acute Assessment and Plan: Hernia able to be reduced. Small-bowel obstruction resolved. Will need repair but hopefully this can be done electively. I discussed this with the patient and his . I would recommend robotic repair with mesh. I discussed this procedure with him and his . His previous hernia surgeries were done 2 years ago by open technique with mesh. Robotic laparoscopic repair would also be done with mesh but with fresh tissue planes. Patient has some comorbid conditions that increase his risk for surgery and general anesthesia. I will consult Cardiology and pulmonology for preop evaluation and optimization. Will go ahead and start patient on full liquid diet. Advance as tolerated. Hold warfarin and Plavix. May continue to take his aspirin. Access to robotic platform is limited. If surgery cannot be done early this week, he may need to go home and come back for the surgery. 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 Also on warfarin as patient does not like to take DOACs--he felt he had more bleeding of small cuts and was worried about his fem-pop bypass graft. (3) CHF (congestive heart failure): Qualifiers: Heart failure type: unspecified Heart failure chronicity: unspecified Qualified Code(s): I50.9 - Heart failure, unspecified Code(s): I50.9 - Heart failure, unspecified Status: Chronic Assessment and Plan: Cardiology will be consulted to assess and optimize cardiac status prior to surgery. (4) Pleural effusion, left: Code(s): J90 - Pleural effusion, not elsewhere classified Status: Chronic Assessment and Plan: Ask pulmonology to see. May need image guided drainage (5) Hx of cancer of lung: Code(s): Z85.118 - Personal history of other malignant neoplasm of bronchus and lung Status: Chronic Assessment and Plan: Treated in 2002. 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 Treated with radiation therapy and chemotherapy, no surgery (6) COPD (chronic obstructive pulmonary disease): Qualifiers: COPD type: unspecified COPD Qualified Code(s): J44.9 - Chronic obstructive pulmonary disease, unspecified Code(s): J44.9 - Chronic obstructive pulmonary disease, unspecified Status: Chronic History of Present Illness Consult details Consult date: 12/23/23 Reason for consult: hernia (Incarcerated right inguinal hernia with SBO) Requesting physician: Candace Wilks PA-C Narrative: Patient is a 78-year-old man whom I know from open repair of bilateral inguinal hernias in October of 2021. After routine postop care, he was discharged from surgical follow-up. Patient apparently developed a right-sided hernia recurrence at some point. This is interesting in that, at the time of his surgery, the left-sided hernia was larger and much more symptomatic. At any rate, the recurrent right-sided hernia developed acute incarceration with small-bowel obstruction probably on 12/21/2023. Patient came to the emergency room and was evaluated. Exam and CT scan did show a large right inguinal hernia with bowel into the scrotum. The hernia reduced with analgesics pain medications. The patient this morning feels much better with no pain in his right groin. He is not exactly hungry but would not mind some food. He has had a long history of medical problems. Predominately, his cardiac problems resulted in coronary artery bypass grafting in 2011. Two years later, he had progression of his coronary disease and had coronary stenting of 1 of his grafts
--- NOTE | 2023-12-23 16:03 | PM.IMPN ---
Progress Note: A&P Assessment and Plan (1) Incarcerated inguinal hernia: Code(s): K40.30 - Unilateral inguinal hernia, with obstruction, without gangrene, not specified as recurrent Status: Acute Assessment and Plan: Patient presents with abdominal pain. CT A/P showing no discernible mucosal enhancement with a small segment of small bowel which extends into a large right inguinal hernia raising concern for incarceration. The hernia was able to be reduced. General surgery was consulted. Anticoagulation and anti-plt treatment held Plans for surgical repair early next week. (2) Pleural effusion, left: Code(s): J90 - Pleural effusion, not elsewhere classified Status: Chronic Assessment and Plan: Patient noted again to have left pleural effusion. He has a hx of lung CA CT A/P in December 2020 showing moderate left pleural effusion. CXR October 2021 showing no sizable pleural effusion CT Chest November 2023 showing large left pleural effusion, possibly loculated with left perihilar and MARCIN consolidation. CT A/P here showing large left pleural effusion with dependent atelectasis and a new 5x7mm RLL nodule probably atelectasis or infectious. Consider recurrent malignancy Plan for thoracentesis once INR better. (3) Chronic systolic heart failure: Code(s): I50.22 - Chronic systolic (congestive) heart failure Status: Acute Assessment and Plan: Some pedal edema but patient states this is chronic Probably at dry weight. Follow. Resume home Lasix (4) Essential (primary) hypertension: Code(s): I10 - Essential (primary) hypertension Status: Acute Assessment and Plan: Patient's blood pressure was reviewed on 12/22 Blood pressure remains well controlled. Will continue current medications. (5) PAD (peripheral artery disease): Code(s): I73.9 - Peripheral vascular disease, unspecified Status: Acute Assessment and Plan: Stable. Plavix on hold. Continue Lipitor (6) COPD (chronic obstructive pulmonary disease): Qualifiers: COPD type: unspecified COPD Qualified Code(s): J44.9 - Chronic obstructive pulmonary disease, unspecified Code(s): J44.9 - Chronic obstructive pulmonary disease, unspecified Status: Chronic Assessment and Plan: Stable. No wheezing Plan DVT prophylaxis - INR 1.9. Coumadin on hold. Start lovenox when INR better Code status - full Subjective Date/time seen: 12/23/23 16:03 Interval history: 78yo male with CHF, CAD and COPD here for abdominal pain. Patient feeling well. No CP. No abd pain. No SOB. He is walking to the bathroom with walker here. Exam Narrative: AF 98.3 100/64 88 14 92% ra Gen - NARD Chest - scattered rhonchi, nml RR CV - RRR S1/S2 Abd - Soft, NT/ND, Positive BS. no bulge noted in inguinal area. Ext - trace L>R bilateral pedal edema Psych - Nml mood and affect Skin - Warm and dry Objective Data Vital Signs Vital Signs: Vital Signs - 24 hr 12/22/23 17:31 12/22/23 21:02 12/22/23 22:49 Temperature 97.8 F 97.5 F L Pulse Rate 74 86 89 Respiratory Rate 18 19 14 Blood Pressure 109/61 107/71 134/85 Pulse Oximetry 99 93 95 Oxygen Delivery Room Air 12/22/23 22:39 12/23/23 05:31 12/23/23 05:31 Temperature 97.1 F L Pulse Rate 68 85 Respiratory Rate 12 Blood Pressure 116/67 Pulse Oximetry 96 Oxygen Delivery Room Air 12/23/23 08:00 12/23/23 14:00 Temperature 98.3 F Pulse Rate 88 Respiratory Rate 14 Blood Pressure 100/64 Pulse Oximetry 92 Oxygen Delivery Room Air Intake/Output Intake/Output: Intake & Output 12/20/23 12/21/23 12/22/23 12/23/23 23:59 23:59 23:59 23:59 Intake Total 200 240 Output Total 100 Balance 200 140 Meds/Results Medications: Active Medications Generic Name Dose Route Start Last Admin Trade Name Freq PRN Reason Stop Dose Admin Atorvastatin Calcium 20
[2023-12-23 22:00] VITALS: BP 108/65; PULSE 92; RESP 16; TEMP 36.8; O2SAT 94
[2023-12-24 06:00] VITALS: BP 100/60; PULSE 84; RESP 16; TEMP 36.4; O2SAT 94
[2023-12-24 06:37] LABS: Basophils Percent Auto 0.7 % (0.2-1.2); Eosinophils Absolute Auto 0.2 K/mm3 (0-0.3); Eosinophils Percent Auto 3.4 % (0-4.4); Hematocrit 33.4 % (42.0-52.0); Hemoglobin 10.8 g/dL (14.0-18.0); Immature Granulocyte Absolute 0.01 K/mm3 (0.00-0.031); Immature Granulocyte Percent A 0.2 % (0-0.5); Lymphocytes Absolute Auto 0.33 K/mm3 (0.9-3.2); Lymphocytes Percent Auto 7.6 % (18.3-44.2); Mean Corpuscular HGB Conc 32.3 g/dl (32-36); Mean Corpuscular Hemoglobin 29.3 pg (26-34); Mean Corpuscular Volume 90.5 fl (80-100); Mean Platelet Volume 9.8 fl (7.4-10.4); Monocytes Absolute Auto 0.7 K/mm3 (0.1-0.6); Monocytes Percent Auto 16.8 % (2.6-8.5); Neutrophils Absolute Auto 3.1 K/mm3 (1.3-6.7); Neutrophils Percent Auto 71.3 % (45.5-73.1); Platelet Count Result 150 k/mm3 (150-375); Red Blood Count 3.69 M/mm3 (4.6-6.20); White Blood Count 4.4 K/mm3 (4.5-10.0)
[2023-12-24 06:43] LABS: INR 2.6; Prothrombin Time 29.6 Seconds (11.1-14.7)
[2023-12-24 06:49] LABS: Alanine Aminotransferase 17 U/L (6-50); Albumin Level 3.4 g/dL (3.5-5.1); Alkaline Phosphatase 133 U/L (38-126); Anion Gap 7 mmol/L (4-12); Aspartate Amino Transferase 25 U/L (17-59); Bilirubin,Total 0.9 mg/dL (0.2-1.3); Blood Urea Nitrogen 25 mg/dL (9-20); Calcium 8.9 mg/dL (8.4-10.2); Carbon Dioxide 23 mmol/L (22-30); Chloride 104 mmol/L (98-107); Estimated CRCL calculation 32 ml/min; Estimated Glomerular Filt Rate 37; Glucose 95 mg/dL (65-110); Magnesium 1.6 mg/dL (1.6-2.3); Phosphorus 4.9 mg/dL (2.5-4.5); Potassium 3.7 mmol/L (3.4-5.0); Sodium 134 mmol/L (137-145)
[2023-12-24] MEDS: ATORVASTATIN 20 MG TABLET PO (07:50)
[2023-12-24] MEDS: carvediloL 6.25 MG TABLET PO ×2 (07:50→20:37)
[2023-12-24] MEDS: PANTOPRAZOLE 40 MG TABLET PO (07:50)
[2023-12-24] MEDS: OPTI-GEN TAB 1 TABLET PO (07:51)
[2023-12-24] MEDS: FLUTICASONE/SALMETEROL 115-21 MCG INHALER 1 PUFF 2 PUFF INHALATION (09:05)
[2023-12-24 09:07] VITALS: O2SAT 93
--- NOTE | 2023-12-24 09:16 | PM.IMPN ---
Progress Note: A&P Assessment and Plan (1) WALKER (acute kidney injury): Code(s): N17.9 - Acute kidney failure, unspecified Status: Acute Assessment and Plan: Patient with baseline Cr 0.8-1.2 range and was within his norm on admisison. He ws on Entresto and Ibuprofen. Lasix ordered but never received a dose He received contrast on 12/21. SBP did drop to 86 on 12/22/23. PVR = 9mL Cr increased to 1.8 today. Ibuprofen, lasix and Entresto stopped. Check urine studies. Check renal US. Repeat RFP and consider IV fluids if worsening. (2) Incarcerated inguinal hernia: Code(s): K40.30 - Unilateral inguinal hernia, with obstruction, without gangrene, not specified as recurrent Status: Acute Assessment and Plan: Patient presents with abdominal pain. CT A/P showing no discernible mucosal enhancement with a small segment of small bowel which extends into a large right inguinal hernia raising concern for incarceration. The hernia was able to be reduced. General surgery was consulted. Anticoagulation and anti-plt treatment held INR still elevated to 2.6 but should start to improve tomorrow Plans for surgical repair early next week. (3) Pleural effusion, left: Code(s): J90 - Pleural effusion, not elsewhere classified Status: Chronic Assessment and Plan: Patient noted again to have left pleural effusion. He has a hx of lung CA CT A/P in December 2020 showing moderate left pleural effusion. CXR October 2021 showing no sizable pleural effusion CT Chest November 2023 showing large left pleural effusion, possibly loculated with left perihilar and MARCIN consolidation. CT A/P here showing large left pleural effusion with dependent atelectasis and a new 5x7mm RLL nodule Consider recurrent malignancy He is aware that he has re-accumulation of fluid and is agreeable for thoracentesis Plan for thoracentesis once INR better. (4) Chronic systolic heart failure: Code(s): I50.22 - Chronic systolic (congestive) heart failure Status: Acute Assessment and Plan: Some pedal edema but patient states this is chronic Echo 12/07/23 showing EF 30-35%, diastolic dysfunction, moderate RV systolic dysfunction and severe pulmonary HTN (RVSP 70) Probably at dry weight. Follow. Home Lasix and Entresto on hold. Contineu Coreg (5) Essential (primary) hypertension: Code(s): I10 - Essential (primary) hypertension Status: Acute Assessment and Plan: Patient's blood pressure was reviewed on 12/23 Blood pressure remains well controlled. Will continue to follow (6) PAD (peripheral artery disease): Code(s): I73.9 - Peripheral vascular disease, unspecified Status: Acute Assessment and Plan: Stable. Plavix on hold. Continue Lipitor (7) COPD (chronic obstructive pulmonary disease): Qualifiers: COPD type: unspecified COPD Qualified Code(s): J44.9 - Chronic obstructive pulmonary disease, unspecified Code(s): J44.9 - Chronic obstructive pulmonary disease, unspecified Status: Chronic Assessment and Plan: Stable. No wheezing Plan DVT prophylaxis - INR 2.6. Coumadin on hold. Start lovenox when INR better Code status - full Subjective Date/time seen: 12/24/23 09:16 Interval history: 78yo male with CHF, CAD and COPD here for abdominal pain. No chest pain or shortness of breath. Nausea or vomiting. No abdominal pain. Eating normally. Exam Narrative: AF 97.5 100/60 84 16 93% ra Gen - NARD Chest - decreased BS in the left lung base CV - RRR S1/S2 with occasional extra beat Abd - Soft, NT/ND, Positive BS Ext - trace L>R bilateral woody pedal edema Psych - Nml mood and affect Skin - Warm and dry Objective Data Vital Signs Vital Signs: Vital Signs - 24 hr 12/23/23 14:00 12/23/23 22:00 12/23/23 20:00 Temperature 98.3 F 98.3 F Pulse Rate 88 92 Respiratory Rate 14 16 Blood Pressure 100
[2023-12-24 12:00] LABS: Urea Random Urine 563 MG/DL
[2023-12-24 12:29] LABS: Albumin Level 3.7 g/dL (3.5-5.1); Anion Gap 7 mmol/L (4-12); Blood Urea Nitrogen 27 mg/dL (9-20); Calcium 8.9 mg/dL (8.4-10.2); Carbon Dioxide 23 mmol/L (22-30); Chloride 104 mmol/L (98-107); Creatine Kinase 120 U/L (55-170); Estimated CRCL calculation 32 ml/min; Estimated Glomerular Filt Rate 37; Glucose 111 mg/dL (65-110); Phosphorus 4.3 mg/dL (2.5-4.5); Potassium 3.7 mmol/L (3.4-5.0); Sodium 134 mmol/L (137-145)
[2023-12-24 13:28] LABS: Creatinine Urine 142.6 mg/dL; Total Protein Urine Random 28 mg/dL
[2023-12-24 14:00] VITALS: BP 101/70; PULSE 93; RESP 18; TEMP 36.1; O2SAT 93
--- NOTE | 2023-12-24 16:57 | PM.PNGS ---
Progress Note: A&P Assessment and Plan (1) Recurrent inguinal hernia of right side with obstruction: Code(s): K40.31 - Unilateral inguinal hernia, with obstruction, without gangrene, recurrent Status: Acute Assessment and Plan: Remains reducible. Continue to hold anticoagulation. Okay for patient to be up and ambulating. Continue to follow. Subjective Subjective Date/Time Seen: 12/24/23 16:57 Patient reports: no new complaints and feels better Review of Systems Review of Systems: All systems reviewed & are unremarkable except as noted in HPI and below (HPI) Exam GI: Inspection: non-distended GI Palp: Yes Soft to palpation and No Tenderness to palpation present (GI) : Male General Exam: Yes hernia (Reducible right inguinal hernia) Objective Data Vital Signs Vital Signs: Vital Signs - 24 hr 12/23/23 22:00 12/23/23 20:00 12/24/23 06:00 Temperature 36.8 C 36.4 C L Pulse Rate 92 84 Respiratory Rate 16 16 Blood Pressure 108/65 100/60 Pulse Oximetry 94 94 Oxygen Delivery Room Air 12/24/23 09:07 12/24/23 08:00 12/24/23 14:00 Temperature 36.1 C L Pulse Rate 93 Respiratory Rate 18 Blood Pressure 101/70 Pulse Oximetry 93 93 Oxygen Delivery Room Air Room Air Intake/Output Intake/Output: Intake & Output 12/21/23 12/22/23 12/23/23 12/24/23 23:59 23:59 23:59 23:59 Intake Total 200 880 720 Output Total 700 Balance 200 180 720 Meds/Results Medications: Active Medications Generic Name Dose Route Start Last Admin Trade Name Freq PRN Reason Stop Dose Admin Acetaminophen 650 mg 12/24/23 07:09 Acetaminophen 325 Mg Tablet PO Q6H PRN Mild Pain (1-5) Or Fever Atorvastatin Calcium 20 mg 12/23/23 09:00 12/24/23 07:50 Atorvastatin 20 Mg Tablet PO 20 mg QAM SHAHIDA Administration Carvedilol 6.25 mg 12/23/23 05:00 12/24/23 07:50 Carvedilol 6.25 Mg Tablet PO 6.25 mg Q12HR SHAHIDA Administration Clopidogrel Bisulfate 75 mg 12/23/23 09:00 Clopidogrel Bisulfate 75 Mg Tablet PO DAILY SHAHIDA Furosemide 20 mg 12/24/23 09:00 Furosemide 20 Mg Tablet PO QAM [facility] Morphine Sulfate 2 mg 12/23/23 11:32 Morphine Sulfate (*Crx) 2 Mg/Ml Inj IV PUSH Q2H PRN Pain Rated 7-10 Multivitamins/Minerals 1 tablet 12/24/23 09:00 12/24/23 07:51 Opti-Gen Tab PO 1 tablet DAILY [facility] Administration Ondansetron HCl 4 mg 12/22/23 20:15 Ondansetron Inj 4 Mg/2 Ml Vial IV PUSH Q4H PRN Nausea Pantoprazole Sodium 40 mg 12/23/23 09:00 12/24/23 07:50 Pantoprazole 40 Mg Tablet PO 40 mg QAM [facility] Administration Sacubitril/Valsartan 1 tab 12/23/23 09:00 12/23/23 20:49 Sacubitril/Valsartan 24-26 Mg Tablet PO 1 tab Q12HR [facility] Administration Fluticasone/Salmeterol 2 puff 12/23/23 08:00 12/24/23 09:05 Fluticasone/Salmeterol 115-21 Mcg Inhaler 1 Puff INHALATION 2 puff Q12HRT [facility] Administration Warfarin Sodium 2 mg 12/23/23 17:00 Warfarin (*Pbkc) 2 Mg Tablet PO [email or web address]@1700 [facility] Warfarin Sodium 4 mg 12/24/23 17:00 Warfarin (*Pbkc) 4 Mg Tablet PO SuTuThSa@1700 [facility] Radiology Results: ITS Impressions Abdomen/Pelvis CT 12/22/23 19:00 IMPRESSION: 1. No discernible mucosal enhancement/with a small segment of small bowel which extends into a large right inguinal hernia raising concern for incarceration. Dr. Silva discussed these findings with Dr. Nevarez at 5:13 PM. 2. No significant change in small right and large left pleural effusions. 3. Cholelithiasis. Labs Labs: Laboratory Results - last 24 hr 12/24/23 12/24/23 12/24/23 06:19 11:44 12:08 WBC 4.4 L RBC 3.69 L Hgb 10.8 L Hct 33.4 L MCV 90.5 MCH 29.3 MCHC 32.3 RDW 16.0 H Plt Count 150 MPV 9.8 Immature Gran % (Auto) 0.2 Neut % (Auto) 71.3 Lymph % (Auto) 7.6 L [place] % (Auto) 16.8 H Eos % (Auto) 3.4 Baso % (Auto) 0.7 Lymph # (Auto)
[2023-12-24 20:49] VITALS: BP 120/76; PULSE 96; RESP 20; TEMP 36.5; O2SAT 96
[2023-12-25 05:53] VITALS: BP 124/65; PULSE 87; RESP 20; TEMP 36.6; O2SAT 93
[2023-12-25 06:02] LABS: Basophils Percent Auto 0.5 % (0.2-1.2); Eosinophils Absolute Auto 0.1 K/mm3 (0-0.3); Eosinophils Percent Auto 2.3 % (0-4.4); Hematocrit 33.5 % (42.0-52.0); Hemoglobin 10.8 g/dL (14.0-18.0); Immature Granulocyte Absolute 0.03 K/mm3 (0.00-0.031); Immature Granulocyte Percent A 0.5 % (0-0.5); Lymphocytes Absolute Auto 0.34 K/mm3 (0.9-3.2); Lymphocytes Percent Auto 5.9 % (18.3-44.2); Mean Corpuscular HGB Conc 32.2 g/dl (32-36); Mean Corpuscular Hemoglobin 29.3 pg (26-34); Mean Platelet Volume 9.5 fl (7.4-10.4); Monocytes Absolute Auto 0.8 K/mm3 (0.1-0.6); Monocytes Percent Auto 13.6 % (2.6-8.5); Neutrophils Absolute Auto 4.4 K/mm3 (1.3-6.7); Neutrophils Percent Auto 77.2 % (45.5-73.1); Platelet Count Result 142 k/mm3 (150-375); Red Blood Count 3.68 M/mm3 (4.6-6.20); White Blood Count 5.7 K/mm3 (4.5-10.0)
[2023-12-25 06:13] LABS: Albumin Level 3.4 g/dL (3.5-5.1); Anion Gap 9 mmol/L (4-12); Blood Urea Nitrogen 31 mg/dL (9-20); Calcium 8.9 mg/dL (8.4-10.2); Carbon Dioxide 22 mmol/L (22-30); Chloride 105 mmol/L (98-107); Estimated CRCL calculation 29 ml/min; Estimated Glomerular Filt Rate 33; Glucose 100 mg/dL (65-110); Magnesium 1.7 mg/dL (1.6-2.3); Phosphorus 4.3 mg/dL (2.5-4.5); Potassium 3.6 mmol/L (3.4-5.0); Sodium 136 mmol/L (137-145)
[2023-12-25 06:17] LABS: INR 2.1
[2023-12-25] MEDS: FLUTICASONE/SALMETEROL 115-21 MCG INHALER 1 PUFF 2 PUFF INHALATION ×2 (07:48→19:53)
[2023-12-25 07:52] VITALS: O2SAT 92
[2023-12-25 09:08] VITALS: PULSE 86
[2023-12-25] MEDS: carvediloL 6.25 MG TABLET PO ×2 (09:08→20:25)
[2023-12-25] MEDS: OPTI-GEN TAB 1 TABLET PO (09:08)
[2023-12-25] MEDS: ATORVASTATIN 20 MG TABLET PO (09:08)
[2023-12-25] MEDS: PANTOPRAZOLE 40 MG TABLET PO (09:09)
--- NOTE | 2023-12-25 09:09 | PM.PNGS ---
Progress Note: A&P Assessment and Plan (1) Recurrent inguinal hernia of right side with obstruction: Code(s): K40.31 - Unilateral inguinal hernia, with obstruction, without gangrene, recurrent Status: Acute Assessment and Plan: Remains reducible. Continue medical workup and plan for surgery this week. Subjective Subjective Date/Time Seen: 12/25/23 09:09 Patient reports: no new complaints Review of Systems Review of Systems: All systems reviewed & are unremarkable except as noted in HPI and below (HPI) Exam : Male General Exam: Yes hernia (Reducible) Objective Data Vital Signs Vital Signs: Vital Signs - 24 hr 12/24/23 14:00 12/24/23 20:49 12/24/23 20:00 Temperature 36.1 C L 36.5 C Pulse Rate 93 96 Respiratory Rate 18 20 Blood Pressure 101/70 120/76 Pulse Oximetry 93 96 Oxygen Delivery Room Air 12/25/23 05:53 12/25/23 07:52 Temperature 36.6 C Pulse Rate 87 Respiratory Rate 20 Blood Pressure 124/65 Pulse Oximetry 93 92 Oxygen Delivery Room Air Intake/Output Intake/Output: Intake & Output 12/22/23 12/23/23 12/24/23 12/25/23 23:59 23:59 23:59 23:59 Intake Total 365 344 4445 150 Output Total 700 Balance 698 150 0610 150 Meds/Results Medications: Active Medications Generic Name Dose Route Start Last Admin Trade Name Freq PRN Reason Stop Dose Admin Acetaminophen 650 mg 12/24/23 07:09 Acetaminophen 325 Mg Tablet PO Q6H PRN Mild Pain (1-5) Or Fever Atorvastatin Calcium 20 mg 12/23/23 09:00 12/24/23 07:50 Atorvastatin 20 Mg Tablet PO 20 mg QAM SHAHIDA Administration Carvedilol 6.25 mg 12/23/23 05:00 12/24/23 20:37 Carvedilol 6.25 Mg Tablet PO 6.25 mg Q12HR SHAHIDA Administration Clopidogrel Bisulfate 75 mg 12/23/23 09:00 Clopidogrel Bisulfate 75 Mg Tablet PO DAILY SHAHIDA Furosemide 20 mg 12/24/23 09:00 Furosemide 20 Mg Tablet PO QAM SHAHIDA Morphine Sulfate 2 mg 12/23/23 11:32 Morphine Sulfate (*Crx) 2 Mg/Ml Inj IV PUSH Q2H PRN Pain Rated 7-10 Multivitamins/Minerals 1 tablet 12/24/23 09:00 12/24/23 07:51 Opti-Gen Tab PO 1 tablet DAILY [facility] Administration Ondansetron HCl 4 mg 12/22/23 20:15 Ondansetron Inj 4 Mg/2 Ml Vial IV PUSH Q4H PRN Nausea Pantoprazole Sodium 40 mg 12/23/23 09:00 12/24/23 07:50 Pantoprazole 40 Mg Tablet PO 40 mg QAM [facility] Administration Sacubitril/Valsartan 1 tab 12/23/23 09:00 12/23/23 20:49 Sacubitril/Valsartan 24-26 Mg Tablet PO 1 tab Q12HR SHAHIDA Administration Fluticasone/Salmeterol 2 puff 12/23/23 08:00 12/25/23 07:48 Fluticasone/Salmeterol 115-21 Mcg Inhaler 1 Puff INHALATION 2 puff Q12HRT SHAHIDA Administration Warfarin Sodium 2 mg 12/23/23 17:00 Warfarin (*Pbkc) 2 Mg Tablet PO [email or web address]@1700 [facility] Warfarin Sodium 4 mg 12/24/23 17:00 Warfarin (*Pbkc) 4 Mg Tablet PO SuTuThSa@1700 [facility] Radiology Results: ITS Impressions Abdomen/Pelvis CT 12/22/23 19:00 IMPRESSION: 1. No discernible mucosal enhancement/with a small segment of small bowel which extends into a large right inguinal hernia raising concern for incarceration. Dr. Silva discussed these findings with Dr. Nevarez at 5:13 PM. 2. No significant change in small right and large left pleural effusions. 3. Cholelithiasis. Renal Ultrasound 12/24/23 19:55 IMPRESSION: Medical renal disease. Labs Labs: Laboratory Results - last 24 hr 12/24/23 12/24/23 12/25/23 11:44 12:08 05:35 WBC 5.7 RBC 3.68 L Hgb 10.8 L Hct 33.5 L MCV 91.0 MCH 29.3 MCHC 32.2 RDW 16.0 H Plt Count 142 L MPV 9.5 Immature Gran % (Auto) 0.5 Neut % (Auto) 77.2 H Lymph % (Auto) 5.9 L [place] % (Auto) 13.6 H Eos % (Auto) 2.3 Baso % (Auto) 0.5 Lymph # (Auto) 0.34 L [place] # (Auto) 0.8 H Eos # (Auto) 0.1 Baso # (Auto) 0.0 Abs Immat Gran (auto) 0.03 Absolute Neuts (auto)
--- NOTE | 2023-12-25 10:14 | PM.IMPN ---
Progress Note: A&P Assessment and Plan (1) WAKLER (acute kidney injury): Code(s): N17.9 - Acute kidney failure, unspecified Status: Acute Assessment and Plan: Patient with baseline Cr 0.8-1.2 range and was within his norm on admisison. He was on Entresto and Ibuprofen. Lasix ordered but he never received a dose He received contrast on 12/21. SBP did drop to 86 on 12/22/23. PVR = 9mL Cr increased to 1.8 so Ibuprofen, lasix and Entresto stopped. Urine studies showing FEUrea 26% consistent with pre-renal. Give IV fluids and repeat Cr later today. (2) Incarcerated inguinal hernia: Code(s): K40.30 - Unilateral inguinal hernia, with obstruction, without gangrene, not specified as recurrent Status: Acute Assessment and Plan: Patient presents with abdominal pain. CT A/P showing no discernible mucosal enhancement with a small segment of small bowel which extends into a large right inguinal hernia raising concern for incarceration. The hernia was able to be reduced. General surgery was consulted. Anticoagulation and anti-plt treatment held INR still elevated tbut better at 2.1; should continue to improve tomorrow Encouraged patient to be out of bed to the chair and walking in the halls. Plans for surgical repair early next week. (3) Pleural effusion, left: Code(s): J90 - Pleural effusion, not elsewhere classified Status: Chronic Assessment and Plan: Patient noted again to have left pleural effusion. He has a hx of lung CA CT A/P in December 2020 showing moderate left pleural effusion. CXR October 2021 showing no sizable pleural effusion CT Chest November 2023 showing large left pleural effusion, possibly loculated with left perihilar and MARCIN consolidation. CT A/P here showing large left pleural effusion with dependent atelectasis and a new 5x7mm RLL nodule Consider recurrent malignancy He is aware that he has re-accumulation of fluid and is agreeable for thoracentesis Plan for thoracentesis once INR better. (4) Chronic systolic heart failure: Code(s): I50.22 - Chronic systolic (congestive) heart failure Status: Acute Assessment and Plan: Some pedal edema but patient states this is chronic Echo 12/07/23 showing EF 30-35%, diastolic dysfunction, moderate RV systolic dysfunction and severe pulmonary HTN (RVSP 70) Probably at dry weight. Follow. Home Lasix and Entresto on hold. Contineu Coreg (5) Essential (primary) hypertension: Code(s): I10 - Essential (primary) hypertension Status: Acute Assessment and Plan: Patient's blood pressure was reviewed on 12/24 Blood pressure remains well controlled. Will continue to follow (6) PAD (peripheral artery disease): Code(s): I73.9 - Peripheral vascular disease, unspecified Status: Acute Assessment and Plan: Stable. Plavix on hold. Continue Lipitor (7) COPD (chronic obstructive pulmonary disease): Qualifiers: COPD type: unspecified COPD Qualified Code(s): J44.9 - Chronic obstructive pulmonary disease, unspecified Code(s): J44.9 - Chronic obstructive pulmonary disease, unspecified Status: Chronic Assessment and Plan: Stable. No wheezing Plan DVT prophylaxis - INR 2.1. Coumadin on hold. Start lovenox when INR better Code status - full Subjective Date/time seen: 12/25/23 10:14 Interval history: 78yo male with CHF, CAD and COPD here for abdominal pain. Slept well. No abd or chest pain. Voiding normal volumes without dysuria, hematuria or foamy urine. Exam Narrative: AF 97.8 124/65 86 20 92% ra Gen - NARD Chest - CTA bilaterally, nml RR CV - RRR S1/S2 with occasional extra beat Abd - Soft, NT/ND, Positive BS Ext - trace bilateral woody pedal edema Psych - Nml mood and affect Skin - Warm and dry Objective Data Vital Signs Vital Signs: Vital Signs - 24 hr 12/24/23 14:00 12/24/23 20:49 12/24/23 20
[2023-12-25 14:00] VITALS: BP 145/74; PULSE 91; RESP 22; TEMP 36.5; O2SAT 96
[2023-12-25 16:26] LABS: Anion Gap 6 mmol/L (4-12); Blood Urea Nitrogen 34 mg/dL (9-20); Calcium 8.8 mg/dL (8.4-10.2); Carbon Dioxide 24 mmol/L (22-30); Chloride 104 mmol/L (98-107); Estimated CRCL calculation 28 ml/min; Estimated Glomerular Filt Rate 31; Glucose 134 mg/dL (65-110); Potassium 4.4 mmol/L (3.4-5.0); Sodium 134 mmol/L (137-145)
[2023-12-25] MEDS: SODIUM CHLORIDE 0.9% IV 1,000 ML 70 ML IV CONT (18:15)
[2023-12-25 21:27] VITALS: BP 124/92; PULSE 92; RESP 20; TEMP 36.5; O2SAT 95
[2023-12-26] VITALS (8 sets, daily range): BP systolic 107–129; BP diastolic 80–85; PULSE 80–94; RESP 18–22; TEMP 36.6–36.7; O2SAT 93–100
[2023-12-26 06:47] LABS: Basophils Percent Auto 0.7 % (0.2-1.2); Eosinophils Absolute Auto 0.1 K/mm3 (0-0.3); Eosinophils Percent Auto 2.9 % (0-4.4); Hematocrit 32.8 % (42.0-52.0); Hemoglobin 10.4 g/dL (14.0-18.0); Immature Granulocyte Absolute 0.01 K/mm3 (0.00-0.031); Immature Granulocyte Percent A 0.2 % (0-0.5); Lymphocytes Absolute Auto 0.43 K/mm3 (0.9-3.2); Lymphocytes Percent Auto 9.7 % (18.3-44.2); Mean Corpuscular HGB Conc 31.7 g/dl (32-36); Mean Corpuscular Volume 91.4 fl (80-100); Mean Platelet Volume 9.1 fl (7.4-10.4); Monocytes Absolute Auto 0.6 K/mm3 (0.1-0.6); Monocytes Percent Auto 12.9 % (2.6-8.5); Neutrophils Absolute Auto 3.3 K/mm3 (1.3-6.7); Neutrophils Percent Auto 73.6 % (45.5-73.1); Platelet Count Result 134 k/mm3 (150-375); Red Blood Count 3.59 M/mm3 (4.6-6.20); Red Cell Distribution Width 15.9 % (11.5-14.5); White Blood Count 4.4 K/mm3 (4.5-10.0)
[2023-12-26 07:04] LABS: Albumin Level 3.5 g/dL (3.5-5.1); Anion Gap 6 mmol/L (4-12); Blood Urea Nitrogen 34 mg/dL (9-20); Calcium 8.5 mg/dL (8.4-10.2); Carbon Dioxide 23 mmol/L (22-30); Chloride 105 mmol/L (98-107); Estimated CRCL calculation 29 ml/min; Estimated Glomerular Filt Rate 33; Glucose 110 mg/dL (65-110); Magnesium 1.7 mg/dL (1.6-2.3); Phosphorus 3.4 mg/dL (2.5-4.5); Potassium 3.5 mmol/L (3.4-5.0); Sodium 134 mmol/L (137-145)
[2023-12-26 07:14] LABS: INR 1.9
[2023-12-26] MEDS: FLUTICASONE/SALMETEROL 115-21 MCG INHALER 1 PUFF 2 PUFF INHALATION ×2 (08:28→20:15)
[2023-12-26] MEDS: carvediloL 6.25 MG TABLET PO ×2 (09:12→20:34)
[2023-12-26] MEDS: OPTI-GEN TAB 1 TABLET PO (09:12)
[2023-12-26] MEDS: ATORVASTATIN 20 MG TABLET PO (09:12)
[2023-12-26] MEDS: PANTOPRAZOLE 40 MG TABLET PO (09:12)
--- NOTE | 2023-12-26 09:13 | PM.PNPUL ---
Progress Note: A&P Assessment and Plan (1) CHF (congestive heart failure): Qualifiers: Heart failure type: unspecified Heart failure chronicity: unspecified Qualified Code(s): I50.9 - Heart failure, unspecified Code(s): I50.9 - Heart failure, unspecified Status: Chronic (2) Hx of CABG: Code(s): Z95.1 - Presence of aortocoronary bypass graft Status: Chronic (3) Hx of cancer of lung: Code(s): Z85.118 - Personal history of other malignant neoplasm of bronchus and lung Status: Chronic (4) Pleural effusion, left: Code(s): J90 - Pleural effusion, not elsewhere classified Status: Chronic Assessment and Plan: Patient's respiratory status is essentially unchanged. On physical exam, he has signs of left pleural effusion which is most likely unchanged by physical exam. Thoracentesis has not been done yet due to prolonged INR. Plan: While waiting for thoracentesis I would add supplemental oxygen 2 liters/minute at night just in case he desaturates during sleep. Will continue to monitor the respiratory status. (5) PAD (peripheral artery disease): Code(s): I73.9 - Peripheral vascular disease, unspecified Status: Acute (6) Recurrent inguinal hernia of right side with obstruction: Code(s): K40.31 - Unilateral inguinal hernia, with obstruction, without gangrene, recurrent Status: Acute Subjective Date/time seen: 12/26/23 09:13 Interval history: Patient has no new respiratory symptoms. Remains on room air. Thoracentesis not done yet likely related to prolonged INR. Review of Systems Review of Systems: All systems reviewed & are unremarkable except as noted in HPI and below (HPI and below) Exam Narrative: GENERAL APPEARANCE: Well developed, well nourished, alert and cooperative, and appears to be in no acute distress while on room air SKIN: Inspection of the skin reveals no rashes, ulcerations or petechiae. HEENT: Sclerae anicteric and conjunctivae pink and moist. Extraocular movements were intact and pupils were equal, round, and reactive to light. The oral mucosa, hard and soft palate, tongue and posterior pharynx were normal. NECK: Supple. There was no thyroid enlargement, and no tenderness, or masses were felt. CHEST: Normal AP diameter and normal contour without any kyphoscoliosis. LUNGS: Dullness to percussion decreased breath sounds at right base posterior CARDIAC: There was a regular rate and rhythm without any murmurs, gallops, rubs. ABDOMEN: Soft and nontender with normal bowel sounds. There was no organomegaly. LYMPH NODES: No lymphadenopathy was appreciated in the neck. EXTREMITIES: No cyanosis, clubbing or edema. NEUROLOGIC: Alert and oriented x 3. Normal affect. Objective Data Vital Signs Vital Signs: Vital Signs - 24 hr 12/25/23 14:00 12/25/23 21:27 12/25/23 20:00 Temperature 36.5 C 36.5 C Pulse Rate 91 92 Respiratory Rate 22 H 20 Blood Pressure 145/74 H 124/92 H Pulse Oximetry 96 95 Oxygen Delivery Room Air 12/26/23 06:00 12/26/23 08:29 12/26/23 08:29 Temperature 36.7 C Pulse Rate 87 85 Respiratory Rate 18 20 Blood Pressure 107/80 Pulse Oximetry 98 94 Oxygen Delivery Room Air 12/26/23 09:12 Temperature Pulse Rate 80 Respiratory Rate Blood Pressure Pulse Oximetry Oxygen Delivery Intake/Output Intake/Output: Intake & Output 12/23/23 12/24/23 12/25/23 12/26/23 23:59 23:59 23:59 23:59 Intake Total 880 1342 2396 100 Output Total 700 Balance 180 1342 2396 100 Meds/Results Medications: Active Medications Generic Name Dose Route Start Last Admin Trade Name Freq PRN Reason Stop Dose Admin Acetaminophen 650 mg 12/24/23 07:09 Acetaminophen 325 Mg Tablet PO Q6H PRN Mild Pain (1-5) Or Fever Atorvastatin Calcium 20 mg 12/23/23 09:00 12/26/23 09:12 Atorvastatin 20 Mg Tablet PO 20 mg QAM SHAHIDA Administration Carvedilol 6.25 mg 05
--- NOTE | 2023-12-26 15:39 | PM.IMPN ---
Progress Note: A&P Assessment and Plan (1) WALKER (acute kidney injury): Code(s): N17.9 - Acute kidney failure, unspecified Status: Acute Assessment and Plan: Patient with baseline Cr 0.8-1.2 range and was within his norm on admisison. He was on Entresto and Ibuprofen. Lasix ordered but he never received a dose He received contrast on 12/21. SBP did drop to 86 on 12/22/23. PVR = 9mL Cr increased to 1.8 so Ibuprofen, lasix and Entresto stopped. Urine studies showing FEUrea 26% consistent with pre-renal. Cr up to 2.1 and given IV fluids Repeat Cr about the same at 2.0 today. Follow (2) Incarcerated inguinal hernia: Code(s): K40.30 - Unilateral inguinal hernia, with obstruction, without gangrene, not specified as recurrent Status: Acute Assessment and Plan: Patient presents with abdominal pain. CT A/P showing no discernible mucosal enhancement with a small segment of small bowel which extends into a large right inguinal hernia raising concern for incarceration. The hernia was able to be reduced. General surgery was consulted. Anticoagulation and anti-plt treatment held INR still elevated but better at 1.9. Should continue to improve. Hold on VitK since it will be an issue trying to get is INR therapeutic again. Encouraged patient to be out of bed to the chair and walking in the halls. Plans for surgical repair this week. (3) Pleural effusion, left: Code(s): J90 - Pleural effusion, not elsewhere classified Status: Chronic Assessment and Plan: Patient noted again to have left pleural effusion. He has a hx of lung CA CT A/P in December 2020 showing moderate left pleural effusion. CXR October 2021 showing no sizable pleural effusion CT Chest November 2023 showing large left pleural effusion, possibly loculated with left perihilar and MARCIN consolidation. CT A/P here showing large left pleural effusion with dependent atelectasis and a new 5x7mm RLL nodule Consider recurrent malignancy He is aware that he has re-accumulation of fluid and is agreeable for thoracentesis Plan for thoracentesis once INR better. (4) Chronic systolic heart failure: Code(s): I50.22 - Chronic systolic (congestive) heart failure Status: Acute Assessment and Plan: Some pedal edema but patient states this is chronic Echo 12/07/23 showing EF 30-35%, diastolic dysfunction, moderate RV systolic dysfunction and severe pulmonary HTN (RVSP 70) Probably at dry weight. Follow. Home Lasix and Entresto on hold. Continue Coreg Resume home meds once renal function better. (5) Essential (primary) hypertension: Code(s): I10 - Essential (primary) hypertension Status: Acute Assessment and Plan: Patient's blood pressure was reviewed on 12/25 Blood pressure remains well controlled. Will continue to follow (6) PAD (peripheral artery disease): Code(s): I73.9 - Peripheral vascular disease, unspecified Status: Acute Assessment and Plan: Stable. Plavix on hold. Continue Lipitor (7) COPD (chronic obstructive pulmonary disease): Qualifiers: COPD type: unspecified COPD Qualified Code(s): J44.9 - Chronic obstructive pulmonary disease, unspecified Code(s): J44.9 - Chronic obstructive pulmonary disease, unspecified Status: Chronic Assessment and Plan: Stable. No wheezing Pulmonary recommends 2L O2 at night. Plan DVT prophylaxis - SCDs and INR 1.9. Coumadin on hold. Start lovenox when INR better Code status - full Subjective Date/time seen: 12/26/23 15:39 Interval history: 78yo male with CHF, CAD and COPD here for abdominal pain. No problems overnight. No Cp or abd pain. No n/v. Voiding well. Eating okay Exam Narrative: AF 97.9 129/85 90 22 100% ra Gen - NARD Chest - CTA bilaterally, nml RR CV - irregularly irregular Abd - Soft, NT/ND, Positive BS Ext - trace bilateral (L>R) woody pedal edema Ps
--- NOTE | 2023-12-26 16:08 | PM.PNGS ---
Progress Note: A&P Assessment and Plan (1) Recurrent inguinal hernia of right side with obstruction: Code(s): K40.31 - Unilateral inguinal hernia, with obstruction, without gangrene, recurrent Status: Acute Assessment and Plan: Still reducible on exam today. Tolerating a regular diet. Still no BM since admission. Will start Miralax. Continue medical optimization for surgery later this week. He was added onto the surgery schedule for Tuesday. (2) Pleural effusion, left: Code(s): J90 - Pleural effusion, not elsewhere classified Status: Chronic Assessment and Plan: Large left pleural effusion. Hospitalist planning thoracentesis once INR comes down more. (3) Anticoagulant prescribed: Status: Chronic Assessment and Plan: Warfarin on hold. INR trending down, at 1.9 today. (4) History of transcatheter aortic valve replacement (TAVR): Code(s): Z95.2 - Presence of prosthetic heart valve Status: Chronic (5) PAD (peripheral artery disease): Code(s): I73.9 - Peripheral vascular disease, unspecified Status: Acute Assessment and Plan: Plavix on hold for procedures Plan I have discussed the patient's case and plan of care with Dr. Olsen. Subjective Subjective Date/Time Seen: 12/26/23 16:08 Interval history: This is a 78-year-old man with multiple medical problems, who presented with abdominal pain. Workup showed CT evidence of right inguinal hernia containing small bowel with obstruction. He also has a large left pleural effusion and history of lung cancer treated with radiation therapy and chemotherapy. He is on dual anti-platelet therapy, and warfarin. INR trending down to 1.9 today. Chart reviewed. He is seen on medical floor. He reports tolerating a regular diet. He is passing flatus, but no bowel movement since admission. No nausea or vomiting. Denies any groin pain, but reports it is still slightly tender. Exam Const: General: comfortable and no acute distress Orientation/consciousness: patient oriented x3 GI: Inspection: non-distended GI Palp: Yes Soft to palpation, No Tenderness to palpation present (GI), No Guarding due to palpation present (GI), Yes Hernia present (reducible right inguinal hernia) and No Rebound tenderness present Auscultation: normal bowel sounds Objective Data Vital Signs Vital Signs: Vital Signs - 24 hr 12/25/23 21:27 12/25/23 20:00 12/26/23 06:00 Temperature 97.7 F 98.1 F Pulse Rate 92 87 Respiratory Rate 20 18 Blood Pressure 124/92 H 107/80 Pulse Oximetry 95 98 Oxygen Delivery Room Air 12/26/23 08:29 12/26/23 08:29 12/26/23 09:12 Temperature Pulse Rate 85 80 Respiratory Rate 20 Blood Pressure Pulse Oximetry 94 Oxygen Delivery Room Air 12/26/23 08:00 12/26/23 13:56 Temperature 97.9 F Pulse Rate 90 Respiratory Rate 22 H Blood Pressure 129/85 Pulse Oximetry 100 Oxygen Delivery Room Air Intake/Output Intake/Output: Intake & Output 12/23/23 12/24/23 12/25/23 12/26/23 23:59 23:59 23:59 23:59 Intake Total 880 1342 2396 460 Output Total 700 Balance 180 1342 2396 460 Meds/Results Medications: Active Medications Generic Name Dose Route Start Last Admin Trade Name Freq PRN Reason Stop Dose Admin Acetaminophen 650 mg 12/24/23 07:09 Acetaminophen 325 Mg Tablet PO Q6H PRN Mild Pain (1-5) Or Fever Atorvastatin Calcium 20 mg 12/23/23 09:00 12/26/23 09:12 Atorvastatin 20 Mg Tablet PO 20 mg QAM SHAHIDA Administration Carvedilol 6.25 mg 12/23/23 05:00 12/26/23 09:12 Carvedilol 6.25 Mg Tablet PO 6.25 mg Q12HR SHAHIDA Administration Clopidogrel Bisulfate 75 mg 12/23/23 09:00 Clopidogrel Bisulfate 75 Mg Tablet PO DAILY SHAHIDA Furosemide 20 mg 12/24/23 09:00 Furosemide 20 Mg Tablet PO QAM SHAHIDA Morphine Sulfate 2 mg 12/23/23 11:32 Morphine Sulfate (*Crx) 2 Mg/Ml Inj IV PUSH Q2H PRN Pa
[2023-12-26] MEDS: polyethylene glycoL 3350 17 GM POWD.PACK PO (18:15)
[2023-12-27] VITALS (7 sets, daily range): BP systolic 121–135; BP diastolic 81–84; PULSE 58–89; RESP 13–20; TEMP 36–36.4; O2SAT 92–99
[2023-12-27 06:43] LABS: Basophils Percent Auto 0.8 % (0.2-1.2); Eosinophils Absolute Auto 0.1 K/mm3 (0-0.3); Eosinophils Percent Auto 2.9 % (0-4.4); Hemoglobin 11.1 g/dL (14.0-18.0); Immature Granulocyte Absolute 0.02 K/mm3 (0.00-0.031); Immature Granulocyte Percent A 0.4 % (0-0.5); Lymphocytes Absolute Auto 0.47 K/mm3 (0.9-3.2); Lymphocytes Percent Auto 9.8 % (18.3-44.2); Mean Corpuscular HGB Conc 32.6 g/dl (32-36); Mean Corpuscular Hemoglobin 29.4 pg (26-34); Mean Corpuscular Volume 89.9 fl (80-100); Mean Platelet Volume 9.8 fl (7.4-10.4); Monocytes Absolute Auto 0.6 K/mm3 (0.1-0.6); Monocytes Percent Auto 13.3 % (2.6-8.5); Neutrophils Absolute Auto 3.5 K/mm3 (1.3-6.7); Neutrophils Percent Auto 72.8 % (45.5-73.1); Platelet Count Result 155 k/mm3 (150-375); Red Blood Count 3.78 M/mm3 (4.6-6.20); Red Cell Distribution Width 16.2 % (11.5-14.5); White Blood Count 4.8 K/mm3 (4.5-10.0)
[2023-12-27 07:04] LABS: Albumin Level 3.6 g/dL (3.5-5.1); Anion Gap 8 mmol/L (4-12); Blood Urea Nitrogen 36 mg/dL (9-20); Carbon Dioxide 21 mmol/L (22-30); Chloride 108 mmol/L (98-107); Estimated CRCL calculation 31 ml/min; Estimated Glomerular Filt Rate 35; Glucose 133 mg/dL (65-110); Phosphorus 3.3 mg/dL (2.5-4.5); Sodium 137 mmol/L (137-145)
[2023-12-27 07:06] LABS: INR 1.7; Prothrombin Time 20.8 Seconds (11.1-14.7)
[2023-12-27] MEDS: FLUTICASONE/SALMETEROL 115-21 MCG INHALER 1 PUFF 2 PUFF INHALATION ×2 (07:39→20:19)
[2023-12-27] MEDS: polyethylene glycoL 3350 17 GM POWD.PACK PO (08:16)
[2023-12-27] MEDS: ATORVASTATIN 20 MG TABLET PO (08:17)
[2023-12-27] MEDS: OPTI-GEN TAB 1 TABLET PO (08:17)
[2023-12-27] MEDS: PANTOPRAZOLE 40 MG TABLET PO (08:17)
[2023-12-27] MEDS: carvediloL 6.25 MG TABLET PO ×2 (08:17→20:39)
--- NOTE | 2023-12-27 11:15 | PM.PNGS ---
Progress Note: A&P Assessment and Plan (1) Recurrent inguinal hernia of right side with obstruction: Code(s): K40.31 - Unilateral inguinal hernia, with obstruction, without gangrene, recurrent Status: Acute Assessment and Plan: Still reducible. Tolerating a regular diet and bowels have moved. Continue medical optimization for surgery later this week. He was added onto the surgery schedule for robotic repair on Tuesday as long as he is medically stable. (2) Pleural effusion, left: Code(s): J90 - Pleural effusion, not elsewhere classified Status: Chronic Assessment and Plan: Large left pleural effusion. Hospitalist planning thoracentesis once INR come down. Hopefully soon, as INR is down to 1.7 today. (3) Anticoagulant prescribed: Status: Chronic Assessment and Plan: Warfarin on hold. INR trending down, at 1.7. (4) History of transcatheter aortic valve replacement (TAVR): Code(s): Z95.2 - Presence of prosthetic heart valve Status: Chronic (5) PAD (peripheral artery disease): Code(s): I73.9 - Peripheral vascular disease, unspecified Status: Acute Assessment and Plan: Plavix on hold for procedures Plan I have discussed the patient's case and plan of care with Dr. Olsen. Subjective Subjective Date/Time Seen: 12/27/23 11:15 Patient reports: no new complaints, tolerating a regular diet, flatus, bowel movement and afebrile Interval history: Patient seen today with at bedside. No acute changes or events overnight. Denies any pain at this time. He has been walking the halls daily. Still tolerating a diet and had a good bowel movement this morning after starting the Miralax. Exam Const: General: comfortable, no acute distress and awake GI: Inspection: non-distended GI Palp: Yes Soft to palpation, No Tenderness to palpation present (GI), No Guarding due to palpation present (GI) and No Rebound tenderness present Auscultation: normal bowel sounds : Male General Exam: Yes hernia (right inguinal hernia still reduced, nontender) Penis: Yes normal penis Scrotum: scrotum normal Objective Data Vital Signs Vital Signs: Vital Signs - 24 hr 12/26/23 13:56 12/26/23 20:15 12/26/23 21:04 Temperature 97.9 F Pulse Rate 90 94 Respiratory Rate 22 H Blood Pressure 129/85 Pulse Oximetry 100 94 97 Oxygen Delivery Room Air Nasal Cannula Oxygen Flow Rate 2 12/26/23 20:00 12/26/23 22:00 12/27/23 06:00 Temperature 97.8 F 97.4 F L Pulse Rate 87 83 Respiratory Rate 18 16 Blood Pressure 125/85 121/81 Pulse Oximetry 93 93 92 Oxygen Delivery Nasal Cannula Oxygen Flow Rate 2 12/27/23 07:39 12/27/23 07:39 12/27/23 08:17 Temperature Pulse Rate 84 84 Respiratory Rate 20 Blood Pressure Pulse Oximetry 95 Oxygen Delivery Nasal Cannula Oxygen Flow Rate 2 Intake/Output Intake/Output: Intake & Output 12/24/23 12/25/23 12/26/23 12/27/23 23:59 23:59 23:59 23:59 Intake Total 1342 2396 2248 630 Balance 1342 0636 2247 630 Meds/Results Medications: Active Medications Generic Name Dose Route Start Last Admin Trade Name Freq PRN Reason Stop Dose Admin Acetaminophen 650 mg 12/24/23 07:09 Acetaminophen 325 Mg Tablet PO Q6H PRN Mild Pain (1-5) Or Fever Atorvastatin Calcium 20 mg 12/23/23 09:00 12/27/23 08:17 Atorvastatin 20 Mg Tablet PO 20 mg QAM SHAHIDA Administration Carvedilol 6.25 mg 12/23/23 05:00 12/27/23 08:17 Carvedilol 6.25 Mg Tablet PO 6.25 mg Q12HR SHAHIDA Administration Clopidogrel Bisulfate 75 mg 12/23/23 09:00 Clopidogrel Bisulfate 75 Mg Tablet PO DAILY SHAHIDA Furosemide 20 mg 12/24/23 09:00 Furosemide 20 Mg Tablet PO QAM SHAHIDA Morphine Sulfate 2 mg 12/23/23 11:32 Morphine Sulfate (*Crx) 2 Mg/Ml Inj IV PUSH Q2H PRN Pain Rated 7-10 Multivitamins/Minerals 1 tablet 12/24/23 09:00 12/27/23 08:17 Opti-Gen Tab PO 1 ta
--- NOTE | 2023-12-27 13:38 | PM.IMPN ---
Progress Note: A&P Assessment and Plan (1) WALKER (acute kidney injury): Code(s): N17.9 - Acute kidney failure, unspecified Status: Acute Assessment and Plan: Patient with baseline Cr 0.8-1.2 range and was within his norm on admission. He was on Entresto and Ibuprofen. Lasix ordered but he never received a dose He received contrast on 12/21. SBP did drop to 86 on 12/22/23. PVR = 9mL Cr increased to 1.8 so Ibuprofen, lasix and Entresto stopped. continue fluids creat is 1.9 today (2) Incarcerated inguinal hernia: Code(s): K40.30 - Unilateral inguinal hernia, with obstruction, without gangrene, not specified as recurrent Status: Acute Assessment and Plan: Patient presents with abdominal pain. CT A/P showing no discernible mucosal enhancement with a small segment of small bowel which extends into a large right inguinal hernia raising concern for incarceration. The hernia was able to be reduced. General surgery was consulted. Anticoagulation and anti-plt treatment held INR still elevated but better at 1.9. Should continue to improve. Hold on VitK since it will be an issue trying to get is INR therapeutic again. Encouraged patient to be out of bed to the chair and walking in the halls. Plans for surgical repair this tuesday (3) Pleural effusion, left: Code(s): J90 - Pleural effusion, not elsewhere classified Status: Chronic Assessment and Plan: Patient noted again to have left pleural effusion. He has a hx of lung CA CT A/P in December 2020 showing moderate left pleural effusion. CXR October 2021 showing no sizable pleural effusion CT Chest November 2023 showing large left pleural effusion, possibly loculated with left perihilar and MARCIN consolidation. CT A/P here showing large left pleural effusion with dependent atelectasis and a new 5x7mm RLL nodule Consider recurrent malignancy He is aware that he has re-accumulation of fluid and is agreeable for thoracentesis Plan for thoracentesis once INR better. rpt cxr today (4) Chronic systolic heart failure: Code(s): I50.22 - Chronic systolic (congestive) heart failure Status: Acute Assessment and Plan: Some pedal edema but patient states this is chronic Echo 12/07/23 showing EF 30-35%, diastolic dysfunction, moderate RV systolic dysfunction and severe pulmonary HTN (RVSP 70) Probably at dry weight. Follow. Home Lasix and Entresto on hold. Continue Coreg Resume home meds once renal function better. (5) Essential (primary) hypertension: Code(s): I10 - Essential (primary) hypertension Status: Acute Assessment and Plan: Patient's blood pressure was reviewed on 12/25 Blood pressure remains well controlled. Will continue to follow (6) PAD (peripheral artery disease): Code(s): I73.9 - Peripheral vascular disease, unspecified Status: Acute Assessment and Plan: Stable. Plavix on hold. Continue Lipitor (7) COPD (chronic obstructive pulmonary disease): Qualifiers: COPD type: unspecified COPD Qualified Code(s): J44.9 - Chronic obstructive pulmonary disease, unspecified Code(s): J44.9 - Chronic obstructive pulmonary disease, unspecified Status: Chronic Assessment and Plan: Stable. No wheezing Pulmonary recommends 2L O2 at night. Subjective Date/time seen: 12/27/23 13:38 Interval history: 78yo male with CHF, CAD and COPD here for abdominal pain. Pt admitted with left pleural effusion, history of CHF, pt has incarcerated inguinal hernia due to have surgery on tuesday INR today is 1.7 pt to have cxr and can go for thoracentesis today after that creat is 1.9 pt still on iv fluids at the moment Pt is on warfarin for TAVR Review of Systems Review of Systems: Pt is tired Exam Narrative: General: Older man bit frustrated Chest - CTA bilaterally, nml RR CV - irregularly irregular Abd - Soft, NT/ND, Positive BS
[2023-12-27 15:40] LABS: INR 1.8
[2023-12-28] VITALS (7 sets, daily range): BP systolic 118–129; BP diastolic 70–83; PULSE 48–96; RESP 13–18; TEMP 36–36.6; O2SAT 97–99
[2023-12-28 06:28] LABS: Anion Gap 7 mmol/L (4-12); Blood Urea Nitrogen 35 mg/dL (9-20); Calcium 8.5 mg/dL (8.4-10.2); Carbon Dioxide 22 mmol/L (22-30); Chloride 107 mmol/L (98-107); Estimated CRCL calculation 41 ml/min; Estimated Glomerular Filt Rate 49; Glucose 91 mg/dL (65-110); Potassium 3.9 mmol/L (3.4-5.0); Sodium 136 mmol/L (137-145)
[2023-12-28] MEDS: FLUTICASONE/SALMETEROL 115-21 MCG INHALER 1 PUFF 2 PUFF INHALATION ×2 (08:07→19:58)
[2023-12-28 10:14] LABS: pH Pleural Fluid > 7.500 (7.210-7.500)
[2023-12-28] MEDS: ATORVASTATIN 20 MG TABLET PO (10:23)
[2023-12-28] MEDS: OPTI-GEN TAB 1 TABLET PO (10:23)
[2023-12-28] MEDS: PANTOPRAZOLE 40 MG TABLET PO (10:23)
[2023-12-28] MEDS: carvediloL 6.25 MG TABLET PO ×2 (10:24→21:34)
[2023-12-28 10:45] LABS: Appearance Pleural Fluid Clear (Clear); Color Pleural Fluid Yellow (Colorless); Pleural fluid source Pleural fluid
[2023-12-28 11:03] LABS: Lymphocytes Pleural Fluid 84 %; Macrophages Pleural Fluid 2 %; Monocytes Pleural Fluid 8 %; Neutrophils Pleural Fluid 6 % (0-25)
--- NOTE | 2023-12-28 11:29 | PM.PNGS ---
Progress Note: A&P Assessment and Plan (1) Recurrent inguinal hernia of right side with obstruction: Code(s): K40.31 - Unilateral inguinal hernia, with obstruction, without gangrene, recurrent Status: Acute Assessment and Plan: Still reducible. Tolerating a regular. Continue medical optimization for surgery later this week. He was added onto the surgery schedule for robotic repair on Tuesday as long as he is medically stable. (2) Pleural effusion, left: Code(s): J90 - Pleural effusion, not elsewhere classified Status: Chronic Assessment and Plan: Thoracentesis today yielded 1100 mL of fluid (3) Anticoagulant prescribed: Status: Chronic Assessment and Plan: Warfarin on hold. INR 1.8 today (4) History of transcatheter aortic valve replacement (TAVR): Code(s): Z95.2 - Presence of prosthetic heart valve Status: Chronic (5) PAD (peripheral artery disease): Code(s): I73.9 - Peripheral vascular disease, unspecified Status: Acute Assessment and Plan: Plavix on hold for procedures Plan I have discussed the patient's case and plan of care with Dr. Olsen. Subjective Subjective Date/Time Seen: 12/28/23 11:29 Patient reports: tolerating a regular diet, bowel movement and afebrile Interval history: Patient doing well today. No new complaints. Patient was seen after thoracentesis, which shielded 1100 mL of fluid, and reports his breathing feels much better. Exam Const: General: comfortable and no acute distress GI: Inspection: non-distended GI Palp: Yes Soft to palpation, No Tenderness to palpation present (GI) and No Guarding due to palpation present (GI) Auscultation: normal bowel sounds : Male General Exam: Yes hernia (right inguinal hernia still reducible, nontender) Objective Data Vital Signs Vital Signs: Vital Signs - 24 hr 12/27/23 14:00 12/27/23 20:21 12/27/23 20:21 Temperature 96.8 F L Pulse Rate 84 58 L Respiratory Rate 16 18 Blood Pressure 125/84 Pulse Oximetry 94 99 Oxygen Delivery Room Air 12/27/23 20:39 12/27/23 21:13 12/27/23 20:00 Temperature 97.6 F Pulse Rate 88 89 Respiratory Rate 13 Blood Pressure 135/82 Pulse Oximetry 95 Oxygen Delivery Room Air 12/28/23 05:26 12/28/23 08:08 12/28/23 10:24 Temperature 97.8 F Pulse Rate 76 96 Respiratory Rate 13 Blood Pressure 129/79 Pulse Oximetry 99 98 Oxygen Delivery Room Air 12/28/23 10:25 Temperature Pulse Rate Respiratory Rate Blood Pressure Pulse Oximetry Oxygen Delivery Room Air Intake/Output Intake/Output: Intake & Output 12/25/23 12/26/23 12/27/23 12/28/23 23:59 23:59 23:59 23:59 Intake Total 2396 2248 990 250 Output Total 1100 Balance 2396 2248 990 -850 Meds/Results Medications: Active Medications Generic Name Dose Route Start Last Admin Trade Name Freq PRN Reason Stop Dose Admin Acetaminophen 650 mg 12/24/23 07:09 Acetaminophen 325 Mg Tablet PO Q6H PRN Mild Pain (1-5) Or Fever Atorvastatin Calcium 20 mg 12/23/23 09:00 12/28/23 10:23 Atorvastatin 20 Mg Tablet PO 20 mg QAM SHAHIDA Administration Carvedilol 6.25 mg 12/23/23 05:00 12/28/23 10:24 Carvedilol 6.25 Mg Tablet PO 6.25 mg Q12HR SHAHIDA Administration Clopidogrel Bisulfate 75 mg 12/23/23 09:00 Clopidogrel Bisulfate 75 Mg Tablet PO DAILY SHAHIDA Furosemide 20 mg 12/24/23 09:00 Furosemide 20 Mg Tablet PO QAM SHAHIDA Morphine Sulfate 2 mg 12/23/23 11:32 Morphine Sulfate (*Crx) 2 Mg/Ml Inj IV PUSH Q2H PRN Pain Rated 7-10 Multivitamins/Minerals 1 tablet 12/24/23 09:00 12/28/23 10:23 Opti-Gen Tab PO 1 tablet DAILY SHAHIDA Administration Ondansetron HCl 4 mg 12/22/23 20:15 Ondansetron Inj 4 Mg/2 Ml Vial IV PUSH Q4H PRN Nausea Pantoprazole Sodium 40 mg 12/23/23 09:00 12/28/23 10:23 Pantoprazole 40 Mg Tablet PO 40 mg QAM SHAHIDA Adm
--- NOTE | 2023-12-28 13:33 | PM.IMPN ---
Progress Note: A&P Assessment and Plan (1) WALKER (acute kidney injury): Code(s): N17.9 - Acute kidney failure, unspecified Status: Acute Assessment and Plan: Patient with baseline Cr 0.8-1.2 range and was within his norm on admission. He was on Entresto and Ibuprofen. Lasix ordered but he never received a dose He received contrast on 12/21. SBP did drop to 86 on 12/22/23. PVR = 9mL Cr increased to 1.8 so Ibuprofen, lasix and Entresto stopped. continue fluids creat is 1.4 today (2) Incarcerated inguinal hernia: Code(s): K40.30 - Unilateral inguinal hernia, with obstruction, without gangrene, not specified as recurrent Status: Acute Assessment and Plan: Patient presents with abdominal pain. CT A/P showing no discernible mucosal enhancement with a small segment of small bowel which extends into a large right inguinal hernia raising concern for incarceration. The hernia was able to be reduced. General surgery was consulted. Anticoagulation and anti-plt treatment held INR still elevated but better at 1.9. Should continue to improve. Hold on VitK since it will be an issue trying to get is INR therapeutic again. Encouraged patient to be out of bed to the chair and walking in the halls. Plans for surgical repair this tuesday (3) Pleural effusion, left: Code(s): J90 - Pleural effusion, not elsewhere classified Status: Chronic Assessment and Plan: Patient noted again to have left pleural effusion. He has a hx of lung CA CT A/P in December 2020 showing moderate left pleural effusion. CXR October 2021 showing no sizable pleural effusion CT Chest November 2023 showing large left pleural effusion, possibly loculated with left perihilar and MARCIN consolidation. CT A/P here showing large left pleural effusion with dependent atelectasis and a new 5x7mm RLL nodule Consider recurrent malignancy He is aware that he has re-accumulation of fluid and is agreeable for thoracentesis Plan for 2nd thoracentesis tomorrow AM and surgery on Tuesday (4) Chronic systolic heart failure: Code(s): I50.22 - Chronic systolic (congestive) heart failure Status: Acute Assessment and Plan: Some pedal edema but patient states this is chronic Echo 12/07/23 showing EF 30-35%, diastolic dysfunction, moderate RV systolic dysfunction and severe pulmonary HTN (RVSP 70) Probably at dry weight. Follow. Home Lasix and Entresto on hold. Continue Coreg Resume home meds once renal function better. (5) Essential (primary) hypertension: Code(s): I10 - Essential (primary) hypertension Status: Acute Assessment and Plan: Patient's blood pressure was reviewed on 12/25 Blood pressure remains well controlled. Will continue to follow (6) PAD (peripheral artery disease): Code(s): I73.9 - Peripheral vascular disease, unspecified Status: Acute Assessment and Plan: Stable. Plavix on hold. Continue Lipitor (7) COPD (chronic obstructive pulmonary disease): Qualifiers: COPD type: unspecified COPD Qualified Code(s): J44.9 - Chronic obstructive pulmonary disease, unspecified Code(s): J44.9 - Chronic obstructive pulmonary disease, unspecified Status: Chronic Assessment and Plan: Stable. No wheezing Pulmonary recommends 2L O2 at night. Subjective Date/time seen: 12/28/23 13:33 Interval history: 78yo male with CHF, CAD and COPD here for abdominal pain. Pt admitted with left pleural effusion, history of CHF, pt has incarcerated inguinal hernia due to have surgery on tuesday INR today is 1.7 pt to have cxr and can go for thoracentesis today after that creat is 1.9 pt still on iv fluids at the moment Pt is on warfarin for TAVR Pt had 1 liter removed today I will keep pt npo Tonite for further thoracentesis in AM INR is 1.8 today Review of Systems Review of Systems: Improving slowly Exam Narrative: [place]
--- NOTE | 2023-12-28 13:44 | PCNFU ---
Nutrition Follow-Up Complete: Inadequate oral intake related to abdominal pain as evidenced by NPO Adequate PO intake once diet is advanced - progressing. NPO for thoracentesis, has been eating 65-100% on previous regular diet Goal: Pt current nutrition is low fiber diet. Nutrition recommendation: Advance diet as medically able Last recorded weight is 85.1 kg. Bowel Motility: No BMs are charted Labs Reviewed: Na 136, BUN 35, Cre 1.4 Meds Noted: Plavix, lasix, warfarin, zofran, protonix Skin: No pressure Additional Notes: Scheduled for hernia surgery Tuesday. Diet advanced. Pt eating 65-100% on previous regular diet. Continue with current orders, advance diet per MD Monitoring intakes, weights, labs, diet advancement, plan of care Follow up in 5 days
[2023-12-28 14:55] LABS: INR 1.6; Prothrombin Time 20.3 Seconds (11.1-14.7)
[2023-12-28] MEDS: ACETAMINOPHEN 325 MG TABLET 650 MG PO (21:34)
[2023-12-29] VITALS (8 sets, daily range): BP systolic 114–133; BP diastolic 72–87; PULSE 65–93; RESP 14–18; TEMP 36.4–36.6; O2SAT 90–100
[2023-12-29 06:36] LABS: Hematocrit 36.1 % (42.0-52.0); Hemoglobin 11.7 g/dL (14.0-18.0); Mean Corpuscular HGB Conc 32.4 g/dl (32-36); Mean Corpuscular Hemoglobin 29.4 pg (26-34); Mean Corpuscular Volume 90.7 fl (80-100); Mean Platelet Volume 10.2 fl (7.4-10.4); Platelet Count Result 166 k/mm3 (150-375); Red Blood Count 3.98 M/mm3 (4.6-6.20); Red Cell Distribution Width 16.2 % (11.5-14.5); White Blood Count 4.5 K/mm3 (4.5-10.0)
[2023-12-29 06:46] LABS: INR 1.5; Prothrombin Time 19.3 Seconds (11.1-14.7)
[2023-12-29 06:48] LABS: Anion Gap 8 mmol/L (4-12); Blood Urea Nitrogen 31 mg/dL (9-20); Calcium 8.8 mg/dL (8.4-10.2); Carbon Dioxide 22 mmol/L (22-30); Chloride 107 mmol/L (98-107); Estimated CRCL calculation 44 ml/min; Estimated Glomerular Filt Rate 54; Glucose 117 mg/dL (65-110); Potassium 4.2 mmol/L (3.4-5.0); Sodium 137 mmol/L (137-145)
--- NOTE | 2023-12-29 08:28 | PM.PNPUL ---
Progress Note: A&P Assessment and Plan (1) CHF (congestive heart failure): Qualifiers: Heart failure type: unspecified Heart failure chronicity: unspecified Qualified Code(s): I50.9 - Heart failure, unspecified Code(s): I50.9 - Heart failure, unspecified Status: Chronic (2) Hx of CABG: Code(s): Z95.1 - Presence of aortocoronary bypass graft Status: Chronic (3) Hx of cancer of lung: Code(s): Z85.118 - Personal history of other malignant neoplasm of bronchus and lung Status: Chronic (4) Pleural effusion, left: Code(s): J90 - Pleural effusion, not elsewhere classified Status: Chronic Assessment and Plan: Patient's respiratory status is essentially unchanged. On physical exam, he still has has signs of residual left pleural effusion post thoracentesis. Pleural fluid results pending. Will continue to monitor the respiratory status. (5) PAD (peripheral artery disease): Code(s): I73.9 - Peripheral vascular disease, unspecified Status: Acute (6) Recurrent inguinal hernia of right side with obstruction: Code(s): K40.31 - Unilateral inguinal hernia, with obstruction, without gangrene, recurrent Status: Acute Subjective Date/time seen: 12/29/23 08:28 Interval history: Patient has no new respiratory symptoms. Using low-flow oxygen at night. Underwent thoracentesis yesterday with removal of 1.1 L of fluid. Remains afebrile Review of Systems Review of Systems: All systems reviewed & are unremarkable except as noted in HPI and below (HPI and below) Exam Narrative: GENERAL APPEARANCE: Well developed, well nourished, alert and cooperative, and appears to be in no acute distress while on room air SKIN: Inspection of the skin reveals no rashes, ulcerations or petechiae. HEENT: Sclerae anicteric and conjunctivae pink and moist. Extraocular movements were intact and pupils were equal, round, and reactive to light. The oral mucosa, hard and soft palate, tongue and posterior pharynx were normal. NECK: Supple. There was no thyroid enlargement, and no tenderness, or masses were felt. CHEST: Normal AP diameter and normal contour without any kyphoscoliosis. LUNGS: Dullness to percussion decreased breath sounds at right base posterior CARDIAC: There was a regular rate and rhythm without any murmurs, gallops, rubs. ABDOMEN: Soft and nontender with normal bowel sounds. There was no organomegaly. LYMPH NODES: No lymphadenopathy was appreciated in the neck. EXTREMITIES: No cyanosis, clubbing or edema. NEUROLOGIC: Alert and oriented x 3. Normal affect. Objective Data Vital Signs Vital Signs: Vital Signs - 24 hr 12/28/23 10:24 12/28/23 10:25 12/28/23 14:00 Temperature 36.0 C L Pulse Rate 96 48 L Respiratory Rate 18 Blood Pressure 125/70 Pulse Oximetry 98 Oxygen Delivery Room Air 12/28/23 19:58 12/28/23 19:58 12/28/23 21:34 Temperature Pulse Rate 82 72 Respiratory Rate 16 Blood Pressure Pulse Oximetry 99 Oxygen Delivery Room Air 12/28/23 22:00 12/29/23 05:58 Temperature 36.4 C 36.6 C Pulse Rate 91 84 Respiratory Rate 16 16 Blood Pressure 118/83 114/87 Pulse Oximetry 97 100 Oxygen Delivery Intake/Output Intake/Output: Intake & Output 12/26/23 12/27/23 12/28/23 12/29/23 23:59 23:59 23:59 23:59 Intake Total 2248 990 770 325 Output Total 1100 Balance 2248 990 -330 325 Meds/Results Medications: Active Medications Generic Name Dose Route Start Last Admin Trade Name Freq PRN Reason Stop Dose Admin Acetaminophen 650 mg 12/24/23 07:09 12/28/23 21:34 Acetaminophen 325 Mg Tablet PO 650 mg Q6H PRN Administration Mild Pain (1-5) Or Fever Atorvastatin Calcium 20 mg 12/23/23 09:00 12/28/23 10:23 Atorvastatin 20 Mg Tablet PO 20 mg QAM SHAHIDA Administration Carvedilol 6.25 mg 12/23/23 05:00 12/28/23 21:34 Carvedilol 6.25 Mg Tablet PO 6.25 mg Q12HR [facility]
[2023-12-29] MEDS: FLUTICASONE/SALMETEROL 115-21 MCG INHALER 1 PUFF 2 PUFF INHALATION ×2 (09:13→20:06)
[2023-12-29 10:26] LABS: pH Pleural Fluid > 0.000 (7.210-7.500)
--- NOTE | 2023-12-29 10:41 | PM.IMPN ---
Progress Note: A&P Assessment and Plan (1) WALKER (acute kidney injury): Code(s): N17.9 - Acute kidney failure, unspecified Status: Acute Assessment and Plan: Patient with baseline Cr 0.8-1.2 range and was within his norm on admission. He was on Entresto and Ibuprofen. Lasix ordered but he never received a dose Cr increased to 1.8 so Ibuprofen, lasix and Entresto stopped. continue fluids creat is 1.3 today (2) Incarcerated inguinal hernia: Code(s): K40.30 - Unilateral inguinal hernia, with obstruction, without gangrene, not specified as recurrent Status: Acute Assessment and Plan: Patient presents with abdominal pain. CT A/P showing no discernible mucosal enhancement with a small segment of small bowel which extends into a large right inguinal hernia raising concern for incarceration. The hernia was able to be reduced. General surgery was consulted. Anticoagulation and anti-plt treatment held INR still elevated but better at 1.9. Should continue to improve. Hold on VitK since it will be an issue trying to get is INR therapeutic again. Encouraged patient to be out of bed to the chair and walking in the halls. Plans for surgical repair this tuesday (3) Pleural effusion, left: Code(s): J90 - Pleural effusion, not elsewhere classified Status: Chronic Assessment and Plan: Patient noted again to have left pleural effusion. He has a hx of lung CA CT A/P in December 2020 showing moderate left pleural effusion. CXR October 2021 showing no sizable pleural effusion CT Chest November 2023 showing large left pleural effusion, possibly loculated with left perihilar and MARCIN consolidation. CT A/P here showing large left pleural effusion with dependent atelectasis and a new 5x7mm RLL nodule Consider recurrent malignancy He is aware that he has re-accumulation of fluid and is agreeable for thoracentesis Plan for 2nd thoracentesis today AM and surgery on Tuesday (4) Chronic systolic heart failure: Code(s): I50.22 - Chronic systolic (congestive) heart failure Status: Acute Assessment and Plan: Some pedal edema but patient states this is chronic Echo 12/07/23 showing EF 30-35%, diastolic dysfunction, moderate RV systolic dysfunction and severe pulmonary HTN (RVSP 70) Probably at dry weight. Follow. Home Lasix and Entresto on hold. Continue Coreg Resume home meds once renal function better. (5) Essential (primary) hypertension: Code(s): I10 - Essential (primary) hypertension Status: Acute Assessment and Plan: Patient's blood pressure was reviewed on 12/25 Blood pressure remains well controlled. Will continue to follow (6) PAD (peripheral artery disease): Code(s): I73.9 - Peripheral vascular disease, unspecified Status: Acute Assessment and Plan: Stable. Plavix on hold. Continue Lipitor (7) COPD (chronic obstructive pulmonary disease): Qualifiers: COPD type: unspecified COPD Qualified Code(s): J44.9 - Chronic obstructive pulmonary disease, unspecified Code(s): J44.9 - Chronic obstructive pulmonary disease, unspecified Status: Chronic Assessment and Plan: Stable. No wheezing Pulmonary recommends 2L O2 at night. Subjective Date/time seen: 12/29/23 10:41 Interval history: 78yo male with CHF, CAD and COPD here for abdominal pain. Pt admitted with left pleural effusion, history of CHF, pt has incarcerated inguinal hernia due to have surgery on tuesday INR today is 1.7 pt to have cxr and can go for thoracentesis today after that creat is 1.9 pt still on iv fluids at the moment Pt is on warfarin for TAVR 12/28/2023 Pt had 1 liter removed today I will keep pt npo Tonite for further thoracentesis in AM INR is 1.8 today 12/29/2023 Pt going for rpt thoracentesis today order albumin after that pt to be NPO for incarcerated inguinal hernia surgery in AM inr is 1.5 today
[2023-12-29 11:44] LABS: Appearance Pleural Fluid Clear (Clear); Color Pleural Fluid Yellow (Colorless); Pleural fluid source Pleural fluid
[2023-12-29 11:45] LABS: Lymphocytes Pleural Fluid 46 %; Macrophages Pleural Fluid 18 %; Mesothelial Cells Pleural Flui 4 %; Monocytes Pleural Fluid 27 %; Neutrophils Pleural Fluid 5 % (0-25); RBC Pleural Fluid < 2000 /uL (0-10000)
[2023-12-29 11:46] LABS: Nucleated Cell Pleural Fluid 116 /uL (0-1000)
[2023-12-29] MEDS: ALBUMIN HUMAN 25% 12.5 GM/50ML 50 ML IVPB (12:58)
[2023-12-29] MEDS: carvediloL 6.25 MG TABLET PO ×2 (12:58→20:43)
[2023-12-29] MEDS: ATORVASTATIN 20 MG TABLET PO (12:58)
[2023-12-29] MEDS: PANTOPRAZOLE 40 MG TABLET PO (12:59)
[2023-12-29] MEDS: OPTI-GEN TAB 1 TABLET PO (12:59)
--- NOTE | 2023-12-29 16:57 | PM.PNGS ---
Progress Note: A&P Assessment and Plan (1) Recurrent inguinal hernia of right side with obstruction: Code(s): K40.31 - Unilateral inguinal hernia, with obstruction, without gangrene, recurrent Status: Acute Assessment and Plan: Still reducible. Tolerating a regular diet. Plan for robotic repair tomorrow. NPO after midnight. (2) Pleural effusion, left: Code(s): J90 - Pleural effusion, not elsewhere classified Status: Chronic Assessment and Plan: Status post second thoracentesis today (3) Anticoagulant prescribed: Status: Chronic (4) History of transcatheter aortic valve replacement (TAVR): Code(s): Z95.2 - Presence of prosthetic heart valve Status: Chronic (5) PAD (peripheral artery disease): Code(s): I73.9 - Peripheral vascular disease, unspecified Status: Acute Assessment and Plan: Plavix on hold for procedures Plan I have discussed the patient's case and plan of care with Dr. Patino. Subjective Subjective Date/Time Seen: 12/29/23 16:57 Patient reports: no new complaints, tolerating a regular diet and bowel movement Interval history: No acute changes since seen yesterday. Status post second thoracentesis today. Exam Const: General: comfortable and no acute distress GI: Inspection: non-distended Auscultation: normal bowel sounds : Male General Exam: Yes hernia (right inguinal hernia still reducible, nontender) Objective Data Vital Signs Vital Signs: Vital Signs - 24 hr 12/28/23 19:58 12/28/23 19:58 12/28/23 21:34 Temperature Pulse Rate 82 72 Respiratory Rate 16 Blood Pressure Pulse Oximetry 99 Oxygen Delivery Room Air 12/28/23 22:00 12/29/23 05:58 12/29/23 09:14 Temperature 97.6 F 97.8 F Pulse Rate 91 84 Respiratory Rate 16 16 Blood Pressure 118/83 114/87 Pulse Oximetry 97 100 95 Oxygen Delivery Room Air 12/29/23 12:58 12/29/23 14:00 Temperature 97.6 F Pulse Rate 88 93 Respiratory Rate 14 Blood Pressure 119/72 Pulse Oximetry 98 Oxygen Delivery Intake/Output Intake/Output: Intake & Output 12/26/23 12/27/23 12/28/23 12/29/23 23:59 23:59 23:59 23:59 Intake Total 2248 990 770 565 Output Total 1100 1000 Balance 2248 991 -741 -630 Meds/Results Medications: Active Medications Generic Name Dose Route Start Last Admin Trade Name Freq PRN Reason Stop Dose Admin Acetaminophen 650 mg 12/24/23 07:09 12/28/23 21:34 Acetaminophen 325 Mg Tablet PO 650 mg Q6H PRN Administration Mild Pain (1-5) Or Fever Atorvastatin Calcium 20 mg 12/23/23 09:00 12/29/23 12:58 Atorvastatin 20 Mg Tablet PO 20 mg QAM SHAHIDA Administration Carvedilol 6.25 mg 12/23/23 05:00 12/29/23 12:58 Carvedilol 6.25 Mg Tablet PO 6.25 mg Q12HR SHAHIDA Administration Clopidogrel Bisulfate 75 mg 12/23/23 09:00 Clopidogrel Bisulfate 75 Mg Tablet PO DAILY SHAHIDA Furosemide 20 mg 12/24/23 09:00 Furosemide 20 Mg Tablet PO QAM SHAHIDA Morphine Sulfate 2 mg 12/23/23 11:32 Morphine Sulfate (*Crx) 2 Mg/Ml Inj IV PUSH Q2H PRN Pain Rated 7-10 Multivitamins/Minerals 1 tablet 12/24/23 09:00 12/29/23 12:59 Opti-Gen Tab PO 1 tablet DAILY SHAHIDA Administration Ondansetron HCl 4 mg 12/22/23 20:15 Ondansetron Inj 4 Mg/2 Ml Vial IV PUSH Q4H PRN Nausea Pantoprazole Sodium 40 mg 12/23/23 09:00 12/29/23 12:59 Pantoprazole 40 Mg Tablet PO 40 mg QAM SHAHIDA Administration Polyethylene Glycol 17 gm 12/26/23 16:10 12/29/23 13:09 Polyethylene Glycol 3350 17 Gm Powd.Pack PO Not Given QAM SHAHIDA Sacubitril/Valsartan 1 tab 12/23/23 09:00 12/23/23 20:49 Sacubitril/Valsartan 24-26 Mg Tablet PO 1 tab Q12HR SHAHIDA Administration Fluticasone/Salmeterol 2 puff 12/23/23 08:00 12/29/23 09:13 Fluticasone/Salmeterol 115-21 Mcg Inhaler 1 Puff INHALATION 2 puff Q12HRT SHAHIDA Administration Warfarin Sodium 2 mg
[2023-12-29 17:28] LABS: INR 1.5; Prothrombin Time 19.6 Seconds (11.1-14.7)
[2023-12-29] MEDS: ACETAMINOPHEN 325 MG TABLET 650 MG PO (20:43)
[2023-12-30] VITALS (16 sets, daily range): BP systolic 111–145; BP diastolic 64–92; PULSE 71–85; RESP 10–23; TEMP 35.6–36.9; O2SAT 93–100
[2023-12-30] MEDS: FLUTICASONE/SALMETEROL 115-21 MCG INHALER 1 PUFF 2 PUFF INHALATION ×2 (07:17→20:00)
[2023-12-30 07:30] LABS: Hematocrit 32.7 % (42.0-52.0); Hemoglobin 10.6 g/dL (14.0-18.0); Mean Corpuscular HGB Conc 32.4 g/dl (32-36); Mean Corpuscular Volume 89.3 fl (80-100); Platelet Count Result 149 k/mm3 (150-375); Red Blood Count 3.66 M/mm3 (4.6-6.20); Red Cell Distribution Width 16.4 % (11.5-14.5); White Blood Count 4.2 K/mm3 (4.5-10.0)
--- NOTE | 2023-12-30 07:30 | WPDPN ---
Progress Note: A&P Assessment and Plan (1) Recurrent inguinal hernia of right side with obstruction: Code(s): K40.31 - Unilateral inguinal hernia, with obstruction, without gangrene, recurrent Status: Acute Assessment and Plan: Patient appears to be medically stable. Will proceed with a robotic assisted laparoscopic recurrent right inguinal hernia repair with mesh. He has been NPO since midnight. Lung had IV fluids overnight so I will start him on some lactated Ringer's about 60 cc an hour this morning. Subjective Date/time seen: 12/30/23 07:30 Interval history: Patient seems to be doing well this morning. No complaints of pain other right inguinal hernia. Nausea vomiting. Has been tolerating diet. INR yesterday was 1.5. The have other topicals pleural effusion. He has no shortness of breath. He has not on any supplemental oxygen. Labs today are pending. Exam : Other: Right or hernia is manually reducible. Nontender. Objective Data Vital Signs Vital Signs: Vital Signs - 24 hr 12/29/23 09:14 12/29/23 12:58 12/29/23 14:00 Temperature 36.4 C Pulse Rate 88 93 Respiratory Rate 14 Blood Pressure 119/72 Pulse Oximetry 95 98 Oxygen Delivery Room Air 12/29/23 20:06 12/29/23 20:09 12/29/23 20:43 Temperature Pulse Rate 86 65 Respiratory Rate 18 Blood Pressure Pulse Oximetry 93 Oxygen Delivery Room Air 12/29/23 21:20 12/30/23 04:15 Temperature 36.4 C L 36.9 C Pulse Rate 82 81 Respiratory Rate 16 16 Blood Pressure 133/82 125/79 Pulse Oximetry 90 100 Oxygen Delivery Intake/Output Intake/Output: Intake & Output 12/27/23 12/28/23 12/29/23 12/30/23 23:59 23:59 23:59 23:59 Intake Total 990 770 855 600 Output Total 1100 1000 Balance 990 -330 -145 600 Meds/Results Medications: Active Medications Generic Name Dose Route Start Last Admin Trade Name Freq PRN Reason Stop Dose Admin Acetaminophen 650 mg 12/24/23 07:09 12/29/23 20:43 Acetaminophen 325 Mg Tablet PO 650 mg Q6H PRN Administration Mild Pain (1-5) Or Fever Atorvastatin Calcium 20 mg 12/23/23 09:00 12/29/23 12:58 Atorvastatin 20 Mg Tablet PO 20 mg QAM [facility] Administration Carvedilol 6.25 mg 12/23/23 05:00 12/29/23 20:43 Carvedilol 6.25 Mg Tablet PO 6.25 mg Q12HR [facility] Administration Clopidogrel Bisulfate 75 mg 12/23/23 09:00 Clopidogrel Bisulfate 75 Mg Tablet PO DAILY [facility] Furosemide 20 mg 12/24/23 09:00 Furosemide 20 Mg Tablet PO QAM [facility] Lactated Ringer's 1,000 mls @ 60 mls/hr 12/30/23 07:30 Lr - Lactated Ringers Iv IV CONT .[id number] [facility] Morphine Sulfate 2 mg 12/23/23 11:32 Morphine Sulfate (*Crx) 2 Mg/Ml Inj IV PUSH Q2H PRN Pain Rated 7-10 Multivitamins/Minerals 1 tablet 12/24/23 09:00 12/29/23 12:59 Opti-Gen Tab PO 1 tablet DAILY [facility] Administration Ondansetron HCl 4 mg 12/22/23 20:15 Ondansetron Inj 4 Mg/2 Ml Vial IV PUSH Q4H PRN Nausea Pantoprazole Sodium 40 mg 12/23/23 09:00 12/29/23 12:59 Pantoprazole 40 Mg Tablet PO 40 mg QAM [facility] Administration Polyethylene Glycol 17 gm 12/26/23 16:10 12/29/23 13:09 Polyethylene Glycol 3350 17 Gm Powd.Pack PO Not Given QAM [facility] Sacubitril/Valsartan 1 tab 12/23/23 09:00 12/23/23 20:49 Sacubitril/Valsartan 24-26 Mg Tablet PO 1 tab Q12HR [facility] Administration Fluticasone/Salmeterol 2 puff 12/23/23 08:00 12/30/23 07:17 Fluticasone/Salmeterol 115-21 Mcg Inhaler 1 Puff INHALATION 2 puff Q12HRT [facility] Administration Warfarin Sodium 2 mg 12/23/23 17:00 Warfarin (*Pbkc) 2 Mg Tablet PO [id number]@1700 [facility] Warfarin Sodium 4 mg 12/24/23 17:00 Warfarin (*Pbkc) 4 Mg Tablet PO [id number]@1700 [facility] Radiology Results: ITS Impressions Abdomen/Pelvis CT 12/22/23 19:00 IMPRESSION: 1. No discernible mucosal enhancement/with a small segment of small bowel which extends int
[2023-12-30 07:31] LABS: INR 1.6
--- NOTE | 2023-12-30 07:32 | WPDHPUPDATE1 ---
History and Physical Update Update Date/Time: 12/30/23 07:32 History and Physical has been reviewed, including an updated exam of the patient. There are NO changes in the patient's condition. Risks, benefits, and alternatives have been discussed and questions answered. Patient agrees to proceed with procedure.
[2023-12-30 07:34] LABS: Anion Gap 5 mmol/L (4-12); Blood Urea Nitrogen 32 mg/dL (9-20); Calcium 8.8 mg/dL (8.4-10.2); Carbon Dioxide 25 mmol/L (22-30); Chloride 109 mmol/L (98-107); Estimated CRCL calculation 48 ml/min; Estimated Glomerular Filt Rate 59; Glucose 108 mg/dL (65-110); Potassium 3.7 mmol/L (3.4-5.0); Sodium 139 mmol/L (137-145)
[2023-12-30] MEDS: carvediloL 6.25 MG TABLET PO ×2 (09:06→20:40)
[2023-12-30] MEDS: ATORVASTATIN 20 MG TABLET PO (09:06)
[2023-12-30] MEDS: OPTI-GEN TAB 1 TABLET PO (09:06)
[2023-12-30] MEDS: PANTOPRAZOLE 40 MG TABLET PO (09:07)
[2023-12-30] MEDS: LACTATED RINGERS 1,000 ML 60 ML IV CONT (09:08)
--- NOTE | 2023-12-30 09:47 | PM.PNPUL ---
Progress Note: A&P Assessment and Plan (1) CHF (congestive heart failure): Qualifiers: Heart failure type: unspecified Heart failure chronicity: unspecified Qualified Code(s): I50.9 - Heart failure, unspecified Code(s): I50.9 - Heart failure, unspecified Status: Chronic (2) Hx of CABG: Code(s): Z95.1 - Presence of aortocoronary bypass graft Status: Chronic (3) Hx of cancer of lung: Code(s): Z85.118 - Personal history of other malignant neoplasm of bronchus and lung Status: Chronic (4) Pleural effusion, left: Code(s): J90 - Pleural effusion, not elsewhere classified Status: Chronic Assessment and Plan: Patient's respiratory status is essentially unchanged. On physical exam, he still has has signs of residual left pleural effusion post thoracentesis. The initial analysis of the pleural fluid indicated a lymphocytic effusion with a low neutrophil count. Further tests to determine the type of effusion, such as transudate versus exudate, are still underway. The cytology test has come back negative. Lymphocytic effusion, which often indicates chronicity, is a common occurrence in cancer patients. The low count of red blood cells suggests that a recent fall and traumatic pleural effusion are highly improbable. Considering the patient's age and history of CHF, the differential diagnosis continues to include congestive heart failure and malignancy. We will persist in monitoring the patient's respiratory status in collaboration with you. (5) PAD (peripheral artery disease): Code(s): I73.9 - Peripheral vascular disease, unspecified Status: Acute (6) Recurrent inguinal hernia of right side with obstruction: Code(s): K40.31 - Unilateral inguinal hernia, with obstruction, without gangrene, recurrent Status: Acute Subjective Date/time seen: 12/30/23 09:47 Interval history: Patient has no new respiratory symptoms. Scheduled to undergo inguinal hernia repair later today. Review of Systems Review of Systems: All systems reviewed & are unremarkable except as noted in HPI and below (HPI and below) Exam Narrative: GENERAL APPEARANCE: Well developed, well nourished, alert and cooperative, and appears to be in no acute distress while on room air SKIN: Inspection of the skin reveals no rashes, ulcerations or petechiae. HEENT: Sclerae anicteric and conjunctivae pink and moist. Extraocular movements were intact and pupils were equal, round, and reactive to light. The oral mucosa, hard and soft palate, tongue and posterior pharynx were normal. NECK: Supple. There was no thyroid enlargement, and no tenderness, or masses were felt. CHEST: Normal AP diameter and normal contour without any kyphoscoliosis. LUNGS: Dullness to percussion decreased breath sounds at right base posterior CARDIAC: There was a regular rate and rhythm without any murmurs, gallops, rubs. ABDOMEN: Soft and nontender with normal bowel sounds. There was no organomegaly. LYMPH NODES: No lymphadenopathy was appreciated in the neck. EXTREMITIES: No cyanosis, clubbing or edema. NEUROLOGIC: Alert and oriented x 3. Normal affect. Objective Data Vital Signs Vital Signs: Vital Signs - 24 hr 12/29/23 12:58 12/29/23 14:00 12/29/23 20:06 Temperature 36.4 C Pulse Rate 88 93 86 Respiratory Rate 14 18 Blood Pressure 119/72 Pulse Oximetry 98 Oxygen Delivery 12/29/23 20:09 12/29/23 20:43 12/29/23 21:20 Temperature 36.4 C L Pulse Rate 65 82 Respiratory Rate 16 Blood Pressure 133/82 Pulse Oximetry 93 90 Oxygen Delivery Room Air 12/30/23 04:15 12/30/23 07:15 12/30/23 07:15 Temperature 36.9 C Pulse Rate 81 71 71 Respiratory Rate 16 18 18 Blood Pressure 125/79 Pulse Oximetry 100 97 Oxygen Delivery Room Air 12/30/23 09:06 Temperature Pulse Rate 76 Respiratory Rate Blood Pressure Pulse Oximetry Oxygen Delivery Intake/Output Intake/O
--- NOTE | 2023-12-30 10:03 | WPDHPUPDATE1 ---
History and Physical Update Update Date/Time: 12/30/23 10:03 History and Physical has been reviewed, including an updated exam of the patient. There are NO changes in the patient's condition. Risks, benefits, and alternatives have been discussed and questions answered. Patient agrees to proceed with procedure.
[2023-12-30] MEDS: LACTATED RINGERS 1,000 ML 30 ML IV CONT (11:30)
--- NOTE | 2023-12-30 11:48 | ECG_ITS ---
SEE SCANNED COPY FOR CONFIRMED REPORT MTDD
--- NOTE | 2023-12-30 11:57 | WPDANESEPPF ---
Anes - Initial Pre Proc Eval Procedure: Operation Date: 12/30/23 12:00 Proposed Procedures p Robotic Assisted Incarcerated Recurrent Right Inguial Hernia Repair With Mesh - Eduardo Patino MD Date/Time: 12/30/23 11:57 Surgeon: Jessenia Zhou PA-C Pre Op Diagnosis: Incarcerated inguinal hernia Patient Data Age: 78 Gender: M Height: 1.68 m Weight: 85.1 kg Last Vital Signs Temp 97.8 F 12/30/23 11:11 Pulse 84 12/30/23 11:11 Resp 18 12/30/23 07:15 BP 111/72 12/30/23 11:11 Pulse Ox 97 12/30/23 11:11 O2 Del Method Room Air 12/30/23 11:11 O2 Flow Rate 2 12/27/23 07:39 Allergies Allergy/AdvReac Type Severity Reaction Status Date / Time venom-honey bee Allergy Severe Swelling Verified 12/16/23 10:17 of Lip/Tongue/Throat Home Medications Medication Instructions Recorded Confirmed Type carvedilol 6.25 mg tablet 6.25 mg PO Q12H 07/02/19 12/22/23 History clopidogrel 75 mg tablet 75 mg PO DAILY 07/02/19 12/22/23 History furosemide 20 mg tablet 20 mg PO QAM 10/09/21 12/22/23 History cbsiuxqz-gs-nztus 300 mcg-K 60 1 tablet PO DAILY 06/29/23 12/22/23 History mcg-lycop 600 mcg-lutein 300 mcg tablet (Centrum Silver Men) sacubitril 24 mg-valsartan 26 mg 1 tablet PO DAILY 06/29/23 12/22/23 History tablet (Entresto) warfarin 1 mg tablet 2 mg PO 3XW 06/29/23 12/22/23 History warfarin 4 mg tablet 4 mg PO 4XW 06/29/23 12/22/23 History budesonide-formoterol HFA 160 2 inh inhalation BID #30.6 grams 12/16/23 12/22/23 Rx mcg-4.5 mcg/actuation aerosol inhaler (Symbicort) atorvastatin 20 mg tablet 20 mg PO QAM 12/22/23 12/22/23 History Laboratory Tests 12/29/23 12/30/23 16:50 06:49 WBC 4.2 L K/mm3 (4.5-10.0) RBC 3.66 L M/mm3 (4.6-6.20) Hgb 10.6 L g/dL (14.0-18.0) Hct 32.7 L % (42.0-52.0) MCV 89.3 fl (80-100) MCH 29.0 pg (26-34) MCHC 32.4 g/dl (32-36) RDW 16.4 H % (11.5-14.5) Plt Count 149 L k/mm3 (150-375) MPV 10.0 fl (7.4-10.4) PT 19.6 H Seconds 20.0 H Seconds (11.1-14.7) (11.1-14.7) INR 1.5 1.6 Sodium 139 mmol/L (137-145) Potassium 3.7 mmol/L (3.4-5.0) Chloride 109 H mmol/L (98-107) Carbon Dioxide 25 mmol/L (22-30) Anion Gap 5 mmol/L (4-12) BUN 32 H mg/dL (9-20) Creatinine 1.20 mg/dL (0.7-1.3) Estim Creat Clear Calc 48 ml/min Estimated GFR 59 (59 - ) Glucose 108 mg/dL (65-110) Calcium 8.8 mg/dL (8.4-10.2) Patient hx anesthesia problems: none Family hx anesthesia problems: none Results Review: All pre-operative results and documents have been reviewed as part of the pre-operative evaluation. 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 of grindstone heart DVT (deep venous thrombosis) Heart attack Heart disease History of blood clots Hx of cancer of lung Hyperlipidemia Lower extremity surgery planned PAD (peripheral artery disease) Positive colorectal cancer screening using Cologuard test PVD (peripheral vascular disease) Surgical History Surgical History H/O inguinal hernia repair bilateral 10/21/21 History of lung biopsy Hx of CABG x3, 2011 Family History Family History Sibling , age 58 Brain cancer Father Acute myocardial infarction Mother Dementia Social History Social History Smoking packs per day: 1.5 Smoking cigarettes per day: 30.0 Years smoked: 41 Smoking pack-years: 61.50 Smoking status: Former smoker Tobacco type: cigarettes Second hand
[2023-12-30] MEDS: ceFAZolin 2 GM/D5W 50 ML 2 GM/50 ML BAG IVPB (12:07)
[2023-12-30] MEDS: LIDO 1%/EPINEPHRINE 1:100,000 20 ML VIAL 30 ML INFILTRATE (13:02)
[2023-12-30] MEDS: BUPivacaine HCL 0.5% PF 30 ML VIAL INFILTRATE (13:03)
--- NOTE | 2023-12-30 16:31 | PM.IMPN ---
Progress Note: A&P Assessment and Plan (1) WALKER (acute kidney injury): Code(s): N17.9 - Acute kidney failure, unspecified Status: Acute Assessment and Plan: Patient with baseline Cr 0.8-1.2 range and was within his norm on admission. He was on Entresto and Ibuprofen. Lasix ordered but he never received a dose Cr increased to 1.8 S2 2.1 so Ibuprofen, lasix and Entresto stopped. Now back to baseline (2) Incarcerated inguinal hernia: Code(s): K40.30 - Unilateral inguinal hernia, with obstruction, without gangrene, not specified as recurrent Status: Acute Assessment and Plan: Patient presents with abdominal pain. CT A/P showing no discernible mucosal enhancement with a small segment of small bowel which extends into a large right inguinal hernia raising concern for incarceration. The hernia was able to be reduced. General surgery was consulted. Anticoagulation and anti-plt treatment held Coagulopathy due to warfarin which is on hold Status post surgical repair 12/30/2023 (3) Pleural effusion, left: Code(s): J90 - Pleural effusion, not elsewhere classified Status: Chronic Assessment and Plan: Patient noted again to have left pleural effusion. He has a hx of lung CA CT A/P in December 2020 showing moderate left pleural effusion. CXR October 2021 showing no sizable pleural effusion CT Chest November 2023 showing large left pleural effusion, possibly loculated with left perihilar and MARCIN consolidation. CT A/P here showing large left pleural effusion with dependent atelectasis and a new 5x7mm RLL nodule Consider recurrent malignancy He is aware that he has re-accumulation of fluid and is agreeable for thoracentesis Status post thoracentesis 12/28/2023 1.1 L and 12/29/2023 Cytology and pleural fluid analysis pending Pulmonary on board and discussed with him. (4) Chronic systolic heart failure: Code(s): I50.22 - Chronic systolic (congestive) heart failure Status: Acute Assessment and Plan: Some pedal edema but patient states this is chronic Echo 12/07/23 showing EF 30-35%, diastolic dysfunction, moderate RV systolic dysfunction and severe pulmonary HTN (RVSP 70) Probably at dry weight. Follow. Home Lasix and Entresto on hold. Continue Coreg Resume home meds once renal function better. (5) Essential (primary) hypertension: Code(s): I10 - Essential (primary) hypertension Status: Acute Assessment and Plan: Monitor (6) PAD (peripheral artery disease): Code(s): I73.9 - Peripheral vascular disease, unspecified Status: Acute Assessment and Plan: Stable. Plavix on hold. Continue Lipitor (7) COPD (chronic obstructive pulmonary disease): Qualifiers: COPD type: unspecified COPD Qualified Code(s): J44.9 - Chronic obstructive pulmonary disease, unspecified Code(s): J44.9 - Chronic obstructive pulmonary disease, unspecified Status: Chronic Assessment and Plan: Stable. No wheezing Pulmonary recommends 2L O2 at night. Subjective Date/time seen: 12/30/23 16:31 Interval history: Patient underwent surgery today. Postoperative hypoxia and bradycardia report noted Review of Systems Review of Systems: All systems reviewed & are unremarkable except as noted in HPI and below Exam Narrative: General: Older man not in acute distress little groggy due to anesthesia Chest -coarse breath sound bilaterally, nml RR CV - irregularly irregular rate controlled Abd - Soft, NT/ND, Positive BS Ext - trace bilateral edema Psych - Nml mood and affect Skin - Warm and dry Objective Data Vital Signs Vital Signs: Vital Signs - 24 hr 12/29/23 20:06 12/29/23 20:09 12/29/23 20:43 Temperature Pulse Rate 86 65 Respiratory Rate 18 Blood Pressure Pulse Oximetry 93 Oxygen Delivery Room Air Oxygen Flow Rate 12/29/23 21:20 12/30/23 04:15 12/30/23 07:15 Marilu
--- NOTE | 2023-12-30 17:25 | W.PM.PROC2 ---
Procedure Note - Detailed Date of Procedure 12/30/23 Pre-op Diagnosis Recurrent right inguinal hernia Post-op Diagnosis Same Procedure Performed Robotic assisted laparoscopic recurrent right inguinal hernia repair with Bard 3D mid weight mesh Surgeon Eduardo Patino MD Anesthesia General Indications Patient is a 78-year-old gentleman who had previously had bilateral open inguinal hernia repairs with mesh plug and patch by Dr. Olsen about 2 years ago. Recently the patient was admitted to the hospital after having a recurrent incarcerated right inguinal hernia which was able to be reduced at the bedside. He has both pulmonary and cardiac comorbidities and so he was retained in the hospital for medical optimization prior to performing repair of the recurrent right inguinal hernia robotic assisted laparoscopic approach with mesh. Findings The patient had a reducible recurrent indirect right inguinal hernia. Left inguinal hernia repair appeared to be intact. The right side had a well position plug in the direct space benign for he recurred in the indirect space. Description of Procedure After informed consent was obtained patient was brought to the operating room was placed in supine position and then general endotracheal anesthesia was administered. The abdomen and bilateral groin regions were then prepped and draped usual sterile fashion. Time-out was then performed correctly identifying the patient as well as procedure to be performed. Site marking the right groin region was verified he was given perioperative IV antibiotics. First started by gaining entrance in the abdomen left upper quadrant utilizing a 10mm Optiview port. Once inside the abdomen insufflated to adequate pneumoperitoneum of 15mmHg of CO2. The patient was then placed and 15? head down Trendelenburg to allow the bowel to fall out of the pelvis and I could then easily see there was a recurrent indirect right inguinal hernia. The left side appeared to be intact without evidence of recurrent hernia. I then proceeded to place additional robotic trocar ports across the mid abdomen and then docked the DA Brennen robot to the patient's right side. Robotic instruments were advanced into the abdomen under direct visualization and then I scrubbed out the procedure sent down at the robotic console to perform the dissection. I then proceeded to make a peritoneal flap starting anterior medial to the right anterior superior iliac spine. This was extended across the midline in the right medial umbilical ligament was divided. Continued my dissection down in the pelvis identified the pubic tubercle. Dissected across the midline of the pubic symphysis and down to the space of Retzius. The bladder was down in the midline without injury. I then proceeded to dissect the indirect inguinal hernia sac out of the inguinal canal and the internal ring. This is done without damaging the vas deferens or testicular vessels. I dissected the hernia sac back and the peritoneum proximally until the vas deferens and testicular vessels upon the psoas muscle. I could see well position mesh plug in the direct space and this was left intact. I then chose a piece of Bard 3D mid weight mesh oriented for the right side measuring [id number]. It was then placed into the abdomen through the entry level marketing assistant port site and then placed into the dissected space. It fit nicely and the medial edge was placed overlapping the pubic symphysis and the lower edge extended down into the space of Retzius. Mesh was then secured in place at the pubic tubercle utilizing 2-0 Vicryl sutures. Laterally the mesh was secured to the muscle anterior medial to the right anterior superior iliac spine. The mesh laid out very nicely covering the whole myopectineal orifice. I then exclude the mesh from the intra-abdominal viscera by reapproximating the edges of the dissected Peritoneal flap. This was done with a running 2-0 absorbable V lock sutur
[2023-12-30] MEDS: ACETAMINOPHEN 325 MG TABLET 650 MG PO (20:40)
[2023-12-30] MEDS: SACUBITRIL/VALSARTAN 24-26 MG TABLET 1 TAB PO (20:40)
[2023-12-31] VITALS (8 sets, daily range): BP systolic 100–143; BP diastolic 54–99; PULSE 71–84; RESP 16–24; TEMP 35.7–36.5; O2SAT 95–100
[2023-12-31] MEDS: FLUTICASONE/SALMETEROL 115-21 MCG INHALER 1 PUFF 2 PUFF INHALATION ×2 (08:41→20:01)
[2023-12-31] MEDS: FUROSEMIDE 20 MG TABLET PO (08:51)
[2023-12-31] MEDS: SACUBITRIL/VALSARTAN 24-26 MG TABLET 1 TAB PO ×2 (08:52→20:13)
[2023-12-31] MEDS: PANTOPRAZOLE 40 MG TABLET PO (08:52)
[2023-12-31] MEDS: CLOPIDOGREL BISULFATE 75 MG TABLET PO (08:52)
[2023-12-31] MEDS: carvediloL 6.25 MG TABLET PO ×2 (08:52→20:13)
[2023-12-31] MEDS: OPTI-GEN TAB 1 TABLET PO (08:52)
[2023-12-31] MEDS: ATORVASTATIN 20 MG TABLET PO (08:52)
[2023-12-31] MEDS: ACETAMINOPHEN 325 MG TABLET 650 MG PO ×2 (10:24→20:12)
--- NOTE | 2023-12-31 10:53 | WPDPN ---
Progress Note: A&P Assessment and Plan (1) Recurrent inguinal hernia of right side with obstruction: Code(s): K40.31 - Unilateral inguinal hernia, with obstruction, without gangrene, recurrent Status: Acute Plan Patient doing well postop day 1 after robotic assisted laparoscopic recurrent right inguinal hernia repair with mesh. Ambulate and urinate without difficulty. Right surgical standpoint he can be discharged from the hospital once he is medically optimized. He needs to follow-up see me in the office in about 2 weeks. Refrain from any lifting more than 5 to 10 lb for the next 2 to 4 weeks. Shower but not soak incision under water. He may resume all of his prior anticoagulation medications. Subjective Date/time seen: 12/31/23 10:53 Interval history: Patient doing well today. He is sitting up in a chair. He is on no oxygen. Is able to ambulate to the bathroom with minimal assistance. Complains only of some minor right groin pain and minor soreness at her is port site incisions. Tolerating regular diet urinating well. Exam GI: Other: Abdominal port site incisions are healing well. No redness or drainage. Minimal swelling in the scrotum right groin region. Objective Data Vital Signs Vital Signs: Vital Signs - 24 hr 12/30/23 11:11 12/30/23 14:56 12/30/23 15:10 Temperature 36.6 C 36.3 C L Pulse Rate 84 85 72 Respiratory Rate 10 L 18 Blood Pressure 111/72 134/80 128/72 Pulse Oximetry 97 100 100 Oxygen Delivery Room Air Simple Face Mask Simple Face Mask Oxygen Flow Rate 8 8 12/30/23 15:25 12/30/23 15:40 12/30/23 15:55 Temperature Pulse Rate 71 73 73 Respiratory Rate 23 H 17 16 Blood Pressure 131/69 121/64 112/64 Pulse Oximetry 99 97 96 Oxygen Delivery Room Air Room Air Room Air Oxygen Flow Rate 12/30/23 16:40 12/30/23 16:55 12/30/23 17:25 Temperature 36.2 C L 36.3 C L 36.3 C L Pulse Rate 77 78 81 Respiratory Rate 14 16 14 Blood Pressure 135/77 142/81 H 145/90 H Pulse Oximetry 93 95 98 Oxygen Delivery Oxygen Flow Rate 12/30/23 18:25 12/30/23 20:40 12/30/23 20:00 Temperature 36.1 C L Pulse Rate 81 82 84 Respiratory Rate 16 Blood Pressure 140/90 Pulse Oximetry 94 99 Oxygen Delivery Nasal Cannula Oxygen Flow Rate 2 12/30/23 20:45 12/31/23 00:05 12/31/23 04:35 Temperature 35.6 C L 35.7 C L 35.8 C L Pulse Rate 85 83 81 Respiratory Rate 20 18 24 H Blood Pressure 130/92 H 136/99 H 143/88 H Pulse Oximetry 96 100 100 Oxygen Delivery Oxygen Flow Rate 12/31/23 08:42 12/31/23 08:42 12/31/23 08:52 Temperature Pulse Rate 82 84 Respiratory Rate 20 Blood Pressure Pulse Oximetry 95 Oxygen Delivery Nasal Cannula Oxygen Flow Rate 2 12/31/23 08:00 Temperature Pulse Rate Respiratory Rate Blood Pressure Pulse Oximetry Oxygen Delivery Room Air Oxygen Flow Rate Intake/Output Intake/Output: Intake & Output 12/28/23 12/29/23 12/30/23 12/31/23 23:59 23:59 23:59 23:59 Intake Total 302 635 7897 660 Output Total 1100 1000 600 Balance -330 -145 500 660 Meds/Results Medications: Active Medications Generic Name Dose Route Start Last Admin Trade Name Freq PRN Reason Stop Dose Admin Acetaminophen 650 mg 12/24/23 07:09 12/31/23 10:24 Acetaminophen 325 Mg Tablet PO 650 mg Q6H PRN Administration Mild Pain (1-5) Or Fever Albuterol/Ipratropium 3 ml 12/30/23 16:48 Ipratropium 0.5 Mg/Albuterol Sulfate 2.5 Mg Ampul.Neb 3 Ml INHALATION Q6HRT PRN Shortness of breath Atorvastatin Calcium 20 mg 12/23/23 09:00 12/31/23 08:52 Atorvastatin 20 Mg Tablet PO 20 mg QAM SHAHIDA Administration Carvedilol 6.25 mg 12/23/23 05:00 12/31/23 08:52 Carvedilol 6.25 Mg Tablet PO 6.25 mg Q12HR SHAHIDA Administration Clopidogrel Bisulfate 75 mg 12/23/23 09:00 12/31/23 08:52 Clopidogrel Bisulfate 75 Mg Tablet PO 75 mg DAILY SHAHIDA Administration Furosemide 20 mg 12/24/23
--- NOTE | 2023-12-31 12:19 | PM.IMPN ---
Progress Note: A&P Assessment and Plan (1) WALKER (acute kidney injury): Code(s): N17.9 - Acute kidney failure, unspecified Status: Acute Assessment and Plan: Patient with baseline Cr 0.8-1.2 range and was within his norm on admission. He was on Entresto and Ibuprofen. Lasix ordered but he never received a dose Cr increased to 1.8 S2 2.1 so Ibuprofen, lasix and Entresto stopped. Now back to baseline Lasix and Entresto has been resumed. Postoperatively (2) Incarcerated inguinal hernia: Code(s): K40.30 - Unilateral inguinal hernia, with obstruction, without gangrene, not specified as recurrent Status: Acute Assessment and Plan: Patient presents with abdominal pain. CT A/P showing no discernible mucosal enhancement with a small segment of small bowel which extends into a large right inguinal hernia raising concern for incarceration. The hernia was able to be reduced. General surgery was consulted. Anticoagulation and anti-plt treatment held Coagulopathy due to warfarin which is on hold Status post surgical repair 12/30/2023 (3) Pleural effusion, left: Code(s): J90 - Pleural effusion, not elsewhere classified Status: Chronic Assessment and Plan: Patient noted again to have left pleural effusion. He has a hx of lung CA CT A/P in December 2020 showing moderate left pleural effusion. CXR October 2021 showing no sizable pleural effusion CT Chest November 2023 showing large left pleural effusion, possibly loculated with left perihilar and MARCIN consolidation. CT A/P here showing large left pleural effusion with dependent atelectasis and a new 5x7mm RLL nodule Consider recurrent malignancy He is aware that he has re-accumulation of fluid and is agreeable for thoracentesis Status post thoracentesis 12/28/2023 1.1 L and 12/29/2023 Cytology came back benign and pleural fluid analysis pending Pulmonary on board and discussed with him. (4) Chronic systolic heart failure: Code(s): I50.22 - Chronic systolic (congestive) heart failure Status: Acute Assessment and Plan: Some pedal edema but patient states this is chronic Echo 12/07/23 showing EF 30-35%, diastolic dysfunction, moderate RV systolic dysfunction and severe pulmonary HTN (RVSP 70) Probably at dry weight. Follow. Home Lasix and Entresto on hold. Continue Coreg Resume home meds once renal function better. (5) Essential (primary) hypertension: Code(s): I10 - Essential (primary) hypertension Status: Acute Assessment and Plan: Monitor (6) PAD (peripheral artery disease): Code(s): I73.9 - Peripheral vascular disease, unspecified Status: Acute Assessment and Plan: Stable. Plavix on hold. Continue Lipitor (7) COPD (chronic obstructive pulmonary disease): Qualifiers: COPD type: unspecified COPD Qualified Code(s): J44.9 - Chronic obstructive pulmonary disease, unspecified Code(s): J44.9 - Chronic obstructive pulmonary disease, unspecified Status: Chronic Assessment and Plan: Stable. No wheezing Pulmonary recommends 2L O2 at night. Subjective Date/time seen: 12/31/23 12:19 Interval history: Doing okay. He need to go to the bathroom yesterday but no help was provided overnight and is upset with regard to that. Some soreness in the belly and generalized otherwise doing okay. Is up and about in his room. ate his meal as well. Review of Systems Review of Systems: All systems reviewed & are unremarkable except as noted in HPI and below Exam Narrative: General: Older man not in acute distress little groggy due to anesthesia Chest -coarse breath sound bilaterally, nml RR CV - irregularly irregular rate controlled Abd - Soft, NT/ND, Positive BS Ext - trace bilateral edema Psych - Nml mood and affect Skin - Warm and dry Objective Data Vital Signs Vital Signs: Vital Signs - 24 hr 12/30/23 14:56 12/30/23
[2023-12-31] MEDS: WARFARIN (*PBKC) 4 MG TABLET PO (16:45)
[2024-01-01 05:20] VITALS: BP 110/58; PULSE 72; RESP 18; TEMP 36.1; O2SAT 96
[2024-01-01 06:29] LABS: Basophils Percent Auto 0.3 % (0.2-1.2); Eosinophils Percent Auto 0.1 % (0-4.4); Hematocrit 32.4 % (42.0-52.0); Hemoglobin 10.6 g/dL (14.0-18.0); Immature Granulocyte Absolute 0.03 K/mm3 (0.00-0.031); Immature Granulocyte Percent A 0.4 % (0-0.5); Immature Platelet Fraction Pct 4.2 % (0.9-11.2); Lymphocytes Absolute Auto 0.42 K/mm3 (0.9-3.2); Lymphocytes Percent Auto 5.6 % (18.3-44.2); Mean Corpuscular HGB Conc 32.7 g/dl (32-36); Mean Corpuscular Hemoglobin 29.9 pg (26-34); Mean Corpuscular Volume 91.3 fl (80-100); Mean Platelet Volume 10.1 fl (7.4-10.4); Monocytes Absolute Auto 0.8 K/mm3 (0.1-0.6); Monocytes Percent Auto 11.2 % (2.6-8.5); Neutrophils Absolute Auto 6.2 K/mm3 (1.3-6.7); Neutrophils Percent Auto 82.4 % (45.5-73.1); Platelet Count Result 130 k/mm3 (150-375); Red Blood Count 3.55 M/mm3 (4.6-6.20); Red Cell Distribution Width 16.6 % (11.5-14.5); White Blood Count 7.5 K/mm3 (4.5-10.0)
[2024-01-01 06:35] LABS: INR 1.7; Prothrombin Time 21.4 Seconds (11.1-14.7)
[2024-01-01 06:38] LABS: Alanine Aminotransferase 22 U/L (6-50); Albumin Level 3.3 g/dL (3.5-5.1); Alkaline Phosphatase 140 U/L (38-126); Anion Gap 6 mmol/L (4-12); Aspartate Amino Transferase 33 U/L (17-59); Blood Urea Nitrogen 40 mg/dL (9-20); Calcium 8.8 mg/dL (8.4-10.2); Carbon Dioxide 28 mmol/L (22-30); Chloride 104 mmol/L (98-107); Estimated CRCL calculation 41 ml/min; Estimated Glomerular Filt Rate 49; Glucose 107 mg/dL (65-110); Magnesium 1.5 mg/dL (1.6-2.3); Potassium 4.6 mmol/L (3.4-5.0); Sodium 138 mmol/L (137-145)
[2024-01-01] MEDS: FLUTICASONE/SALMETEROL 115-21 MCG INHALER 1 PUFF 2 PUFF INHALATION (07:53)
[2024-01-01] MEDS: IPRATROPIUM 0.5 MG/ALBUTEROL SULFATE 2.5 MG AMPUL.NEB 3 ML INHALATION (07:58)
[2024-01-01 07:59] VITALS: PULSE 84; RESP 18
[2024-01-01 08:26] VITALS: PULSE 78
[2024-01-01] MEDS: OPTI-GEN TAB 1 TABLET PO (08:26)
[2024-01-01] MEDS: ATORVASTATIN 20 MG TABLET PO (08:26)
[2024-01-01] MEDS: PANTOPRAZOLE 40 MG TABLET PO (08:26)
[2024-01-01] MEDS: CLOPIDOGREL BISULFATE 75 MG TABLET PO (08:26)
[2024-01-01] MEDS: carvediloL 6.25 MG TABLET PO (08:26)
[2024-01-01] MEDS: SACUBITRIL/VALSARTAN 24-26 MG TABLET 1 TAB PO (08:26)
[2024-01-01] MEDS: polyethylene glycoL 3350 17 GM POWD.PACK PO (08:27)
[2024-01-01] MEDS: FUROSEMIDE 20 MG TABLET PO (08:30)
[2024-01-01] MEDS: MAGNESIUM SULF 1 GM/D5W 100 ML 1 GM/100 ML BAG IVPB (08:30)
--- NOTE | 2024-01-01 09:32 | WPDPN ---
Progress Note: A&P Assessment and Plan (1) Recurrent inguinal hernia of right side with obstruction: Code(s): K40.31 - Unilateral inguinal hernia, with obstruction, without gangrene, recurrent Status: Acute Assessment and Plan: Resolved now after robotic assisted laparoscopic repair with mesh. Patient to be discharged home as per hospitalist service when he is medically optimized. Patient to follow-up see me in my office as per the discharge instructions I have written. Subjective Date/time seen: 01/01/24 09:32 Interval history: Patient doing well after his robotic assisted recurrent laparoscopic right inguinal hernia repair with mesh. He is up walking around without difficulty in eating regular diet. Minimal pain around his port site incisions. Restarted on his anticoagulation medications as per hospitalist service yesterday. The has no complaints in terms with surgery. No shortness of breath and non on the oxygen. Exam GI: Other: Abdominal port site incisions are healing well without redness or drainage. Minimal tenderness to palpation. No swelling in the right groin region or scrotum. Objective Data Vital Signs Vital Signs: Vital Signs - 24 hr 12/31/23 14:00 12/31/23 20:02 12/31/23 20:13 Temperature 36.1 C L Pulse Rate 75 72 78 Respiratory Rate 16 Blood Pressure 100/54 L Pulse Oximetry 100 96 Oxygen Delivery Room Air 12/31/23 21:05 01/01/24 05:20 01/01/24 07:59 Temperature 36.5 C 36.1 C L Pulse Rate 71 72 84 Respiratory Rate 20 18 18 Blood Pressure 102/69 110/58 L Pulse Oximetry 99 96 Oxygen Delivery 01/01/24 08:26 Temperature Pulse Rate 78 Respiratory Rate Blood Pressure Pulse Oximetry Oxygen Delivery Intake/Output Intake/Output: Intake & Output 12/29/23 12/30/23 12/31/23 01/01/24 23:59 23:59 23:59 23:59 Intake Total 855 1100 1620 Output Total 1000 600 Balance -673 066 9008 Meds/Results Medications: Active Medications Generic Name Dose Route Start Last Admin Trade Name Freq PRN Reason Stop Dose Admin Acetaminophen 650 mg 12/24/23 07:09 12/31/23 20:12 Acetaminophen 325 Mg Tablet PO 650 mg Q6H PRN Administration Mild Pain (1-5) Or Fever Albuterol/Ipratropium 3 ml 12/30/23 16:48 01/01/24 07:58 Ipratropium 0.5 Mg/Albuterol Sulfate 2.5 Mg Ampul.Neb 3 Ml INHALATION 3 ml Q6HRT PRN Administration Shortness of breath Atorvastatin Calcium 20 mg 12/23/23 09:00 01/01/24 08:26 Atorvastatin 20 Mg Tablet PO 20 mg QAM SHAHIDA Administration Carvedilol 6.25 mg 12/23/23 05:00 01/01/24 08:26 Carvedilol 6.25 Mg Tablet PO 6.25 mg Q12HR SHAHIDA Administration Clopidogrel Bisulfate 75 mg 12/23/23 09:00 01/01/24 08:26 Clopidogrel Bisulfate 75 Mg Tablet PO 75 mg DAILY SHAHIDA Administration Furosemide 20 mg 12/24/23 09:00 01/01/24 08:30 Furosemide 20 Mg Tablet PO 20 mg QAM SHAHIDA Administration Morphine Sulfate 2 mg 12/23/23 11:32 Morphine Sulfate (*Crx) 2 Mg/Ml Inj IV PUSH Q2H PRN Pain Rated 7-10 Multivitamins/Minerals 1 tablet 12/24/23 09:00 01/01/24 08:26 Opti-Gen Tab PO 1 tablet DAILY SHAHIDA Administration Ondansetron HCl 4 mg 12/22/23 20:15 Ondansetron Inj 4 Mg/2 Ml Vial IV PUSH Q4H PRN Nausea Pantoprazole Sodium 40 mg 12/23/23 09:00 01/01/24 08:26 Pantoprazole 40 Mg Tablet PO 40 mg QAM SHAHIDA Administration Polyethylene Glycol 17 gm 12/26/23 16:10 01/01/24 08:27 Polyethylene Glycol 3350 17 Gm Powd.Pack PO 17 gm QAM SHAHIDA Administration Sacubitril/Valsartan 1 tab 12/23/23 09:00 01/01/24 08:26 Sacubitril/Valsartan 24-26 Mg Tablet PO 1 tab Q12HR SHAHIDA Administration Fluticasone/Salmeterol 2 puff 12/23/23 08:00 01/01/24 07:53 Fluticasone/Salmeterol 115-21 Mcg Inhaler 1 Puff INHALATION 2 puff Q12HRT SHAHIDA Administration Warfarin Sodium 2 mg 12/23/23 17:00 12/30/23 19:03 Warfarin (*Pbkc) 2 Mg Ta
--- NOTE | 2024-01-01 10:20 | PM.PNPUL ---
Progress Note: A&P Assessment and Plan (1) CHF (congestive heart failure): Qualifiers: Heart failure type: unspecified Heart failure chronicity: unspecified Qualified Code(s): I50.9 - Heart failure, unspecified Code(s): I50.9 - Heart failure, unspecified Status: Chronic (2) Hx of CABG: Code(s): Z95.1 - Presence of aortocoronary bypass graft Status: Chronic (3) Hx of cancer of lung: Code(s): Z85.118 - Personal history of other malignant neoplasm of bronchus and lung Status: Chronic (4) Pleural effusion, left: Code(s): J90 - Pleural effusion, not elsewhere classified Status: Chronic Assessment and Plan: Patient's respiratory status is essentially unchanged. On physical exam, he still has has signs of residual left pleural effusion post thoracentesis. The initial analysis of the pleural fluid indicated a lymphocytic effusion with a low neutrophil count. Further tests to determine the type of effusion, such as transudate versus exudate, are still underway. The cytology test has come back negative. Lymphocytic effusion, which often indicates chronicity, is a common occurrence in cancer patients. The low count of red blood cells suggests that a recent fall and traumatic pleural effusion are highly improbable. Considering the patient's age and history of CHF, the differential diagnosis continues to include congestive heart failure and malignancy. Pleural fluid test still pending. Will measure oxyhemoglobin saturation tonight via [facility]. Okay to DC patient in a.m. following [facility]. If [employer] shows oxyhemoglobin desaturation he will need supplemental oxygen at night. Also assess oxygen need with activities prior to discharge home. Patient needs to return to pulmonary clinic in approximately 2 weeks for follow-up regarding left pleural effusion. (5) PAD (peripheral artery disease): Code(s): I73.9 - Peripheral vascular disease, unspecified Status: Acute (6) Recurrent inguinal hernia of right side with obstruction: Code(s): K40.31 - Unilateral inguinal hernia, with obstruction, without gangrene, recurrent Status: Acute Subjective Date/time seen: 01/01/24 10:20 Interval history: Patient has no new respiratory symptoms. Remains on room air. Last chest x-ray showed residual effusion on left. Anxious to go home Review of Systems Review of Systems: All systems reviewed & are unremarkable except as noted in HPI and below (HPI and below) Exam Narrative: GENERAL APPEARANCE: Well developed, well nourished, alert and cooperative, and appears to be in no acute distress while on room air SKIN: Inspection of the skin reveals no rashes, ulcerations or petechiae. HEENT: Sclerae anicteric and conjunctivae pink and moist. Extraocular movements were intact and pupils were equal, round, and reactive to light. The oral mucosa, hard and soft palate, tongue and posterior pharynx were normal. NECK: Supple. There was no thyroid enlargement, and no tenderness, or masses were felt. CHEST: Normal AP diameter and normal contour without any kyphoscoliosis. LUNGS: Dullness to percussion decreased breath sounds at right base posterior CARDIAC: There was a regular rate and rhythm without any murmurs, gallops, rubs. ABDOMEN: Soft and nontender with normal bowel sounds. There was no organomegaly. LYMPH NODES: No lymphadenopathy was appreciated in the neck. EXTREMITIES: No cyanosis, clubbing or edema. NEUROLOGIC: Alert and oriented x 3. Normal affect. Objective Data Vital Signs Vital Signs: Vital Signs - 24 hr 12/31/23 14:00 12/31/23 20:02 12/31/23 20:13 Temperature 36.1 C L Pulse Rate 75 72 78 Respiratory Rate 16 Blood Pressure 100/54 L Pulse Oximetry 100 96 Oxygen Delivery Room Air 12/31/23 21:05 01/01/24 05:20 01/01/24 07:59 Temperature 36.5 C 36.1 C L Pulse Rate 71 72 84 Respiratory Rate 20 18 18 Blood Pressure 102/69 110/5
--- NOTE | 2024-01-01 12:12 | PM.DS ---
DS: Admitting Diagnosis Discharge Date 01/01/2024 Admitting Diagnosis Incarcerated inguinal hernia DS: Discharge Diagnosis Discharge Diagnosis (1) WALKER (acute kidney injury): Code(s): N17.9 - Acute kidney failure, unspecified Status: Acute (2) Incarcerated inguinal hernia: Code(s): K40.30 - Unilateral inguinal hernia, with obstruction, without gangrene, not specified as recurrent Status: Acute (3) Pleural effusion, left: Code(s): J90 - Pleural effusion, not elsewhere classified Status: Chronic (4) Chronic systolic heart failure: Code(s): I50.22 - Chronic systolic (congestive) heart failure Status: Acute (5) Essential (primary) hypertension: Code(s): I10 - Essential (primary) hypertension Status: Acute (6) PAD (peripheral artery disease): Code(s): I73.9 - Peripheral vascular disease, unspecified Status: Acute (7) COPD (chronic obstructive pulmonary disease): Qualifiers: COPD type: unspecified COPD Qualified Code(s): J44.9 - Chronic obstructive pulmonary disease, unspecified Code(s): J44.9 - Chronic obstructive pulmonary disease, unspecified Status: Chronic DS: Summary Hospital Course Hospital Course: This is a 78-year-old male presents to the ED with abdominal pain localized to the right groin area for a day. Workup in the ER was significant for incarcerated right inguinal hernia. General surgery was consulted and plan for surgical repair. Cardiology and Pulmonary was consulted for preop evaluation and optimization. His warfarin and Plavix were held for planned surgery. He was noted to have left pleural effusion. He had history of small cell lung cancer with chemoradiation in 2001. He was recently found to have large pleural effusion. He does have history of congestive heart failure which could be the etiology. But could be related to previous malignancy or recurrence of it. Thoracentesis was eventually performed on 12/27 and 516. Pleural fluid analysis were pending. Cytology came back negative. Pleural fluid was negative for early any info is more lymphocytic which suggests chronicity. He will be evaluated for a this effusion as an outpatient basis. 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 Recent echo performed on 12/07/2023 showed EF 30-35% moderate right ventricular hypokinesis He underwent right inguinal hernia repair on 12/30/2023. Is okay to discharge from surgical standpoint to follow up as an outpatient basis. He did well postoperatively and was on room air. Oxygen evaluation was done time of discharge he and did not require any oxygen. He will resume on warfarin and she prescribed. Time Spent with Patient Time attestation: Total time spent providing and/or coordinating discharge services: 35 Minutes Exam Narrative: General: Older man not in acute distress Chest -coarse breath sound bilaterally, nml RR CV - irregularly irregular rate controlled Abd - Soft, NT/ND, Positive BS Ext - trace bilateral edema Psych - Nml mood and affect Skin - Warm and dry DS: Data Data Completed and Pending Completed studies during hospitalization: Pending at discharge 12/28/23 09:03 Cytology [PTH] Routine Labs on day of discharge: Labs from last 24 hours 01/01/24 06:10 WBC 7.5 RBC 3.55 L Hgb 10.6 L Hct 32.4 L MCV 91.3 MCH 29.9 MCHC 32.7 RDW 16.6 H Plt Count 130 L MPV 10.1 Immature Gran % (Auto) 0.4 Neut % (Auto) 82.4 H Lymph % (Auto) 5.6 L [place] % (Auto) 11.2 H Eos % (Auto) 0.1 Baso % (Auto) 0.3 Lymph # (Auto) 0.42 L [place] # (Auto) 0.8 H Eos # (Auto) 0.0 Baso # (Auto) 0.0 Abs Immat Gran (auto) 0.03 Absolute Neuts (auto) 6.2 Absolute Nucleated RBC 0.000 Nucleated RBC % 0.0 % Immature Plt Fraction 4.2 PT 21.4 H INR 1.7 Sodium 138 Potassium 4.6 Chloride 104 Carbon Dioxide 28 Anion Gap 6 B
[2024-01-01 12:45] VITALS: PULSE 72; O2SAT 100
[2024-01-01 12:50] VITALS: PULSE 79; O2SAT 96
[2024-01-01 12:58] VITALS: PULSE 72; O2SAT 97
[2024-01-03 07:54] LABS: Adenosine Deaminase Pleural Fl 2.7
[2024-01-10 08:39] LABS: Glucose Pleural Fluid 107
[2024-01-10 20:48] LABS: Albumin Pleural Fluid 1.4 g/dL; Glucose Pleural Fluid 116 mg/dL; LDH Pleural Fluid 61 U/L; Total Protein Pleural Fluid <3.0 g/dL
== END 2024-01-01 13:45 | disposition home or self-care (01) | DRG 351 ==
LOC: ANHED 20:03 → ANH3MEDSUR 21:07
PROVIDERS: Family Medicine; Internal Medicine; Internal Medicine Pulmonary Disease; Nurse Practitioner Family; Surgery; Admitting Provider Internal Medicine; Emergency Provider Physician Assistant; PCP Nurse Practitioner; Visit Provider Internal Medicine
PROC: 8E0Y4CZ Robotic Assisted Procedure of Lower Extremity, Percutaneous Endoscopic Approach (ICD-10-PCS; CPT 49650; principal; 2023-12-30 12:00)
DX: K40.31 Unilateral inguinal hernia, with obstruction, without gangrene, recurrent (principal); I50.22 Chronic systolic (congestive) heart failure; J90 Pleural effusion, not elsewhere classified; N17.9 Acute kidney failure, unspecified; I11.0 Hypertensive heart disease with heart failure; I25.10 Atherosclerotic heart disease of native coronary artery without angina pectoris; I25.2 Old myocardial infarction; E78.5 Hyperlipidemia, unspecified; I73.9 Peripheral vascular disease, unspecified; J43.9 Emphysema, unspecified; Z95.1 Presence of aortocoronary bypass graft; Z87.891 Personal history of nicotine dependence; Z79.01 Long term (current) use of anticoagulants; Z79.02 Long term (current) use of antithrombotics/antiplatelets; Z85.118 Personal history of other malignant neoplasm of bronchus and lung; Z86.718 Personal history of other venous thrombosis and embolism; Z92.3 Personal history of irradiation; Z95.2 Presence of prosthetic heart valve
CPT/HCPCS: 32555; 36415; 71045; 74177; 76775; 80048; 80053; 80069; 81001; 82042; 82550; 82570; 82945; 83605; 83615; 83690; 83735; 83986; 84100; 84156; 84157; 84311; 84478; 84540; 85025; 85027; 85055; 85610; 85730; 87070; 87075; 87205; 88108; 88305; 89051; 93005; 94618; 94640; 96365; 96375; 96376; 99285; A9270; C1781; G0378; J0690; J1170; J1741; J1885; J2270; J2405; J3010; J3475; J7030; J7120; P9047; Q9967

== ENCOUNTER 2024-02-21 12:45 | Outpatient (CLI) | payer MEDICARE, BC, SELFPAY ==
[2024-02-21 13:00] VITALS: PULSE 81; O2SAT 99
[2024-02-21 13:03] VITALS: PULSE 100; O2SAT 87
[2024-02-21 13:05] VITALS: O2SAT 87
[2024-02-21 13:06] VITALS: PULSE 92; O2SAT 92
[2024-02-21 13:15] VITALS: PULSE 83; O2SAT 98
--- NOTE | 2024-02-21 14:06 | HOMEO2EVAL ---
Evaluation was performed at [facility] Home Oxygen Evaluation RC: Home Oxygen (O2) Evaluation Start: 02/21/24 14:03 Freq: Status: Active Protocol: RPE Activity Type Activity Date Activity User E-sign Co-sign Detail Recorded Client Recorded Date Recorded By Document 02/21/24 13:00 MARIELA [email or web address] 02/21/24 14:06 MARIELA Document 02/21/24 13:03 MARIELA [email or web address] 02/21/24 14:06 MARIELA Document 02/21/24 13:05 MARIELA [email or web address] 02/21/24 14:06 MARIELA Document 02/21/24 13:06 MARIELA [email or web address] 02/21/24 14:06 MARIELA Document 02/21/24 13:15 MARIELA [email or web address] 02/21/24 14:06 MARIELA 02/21/24 02/21/24 02/21/24 13:00 13:03 13:05 Home O2 Evaluation [Oxygen] -Test Phase Resting Exercise Exercise -Oxygen Delivery Room Air Room Air Nasal Cannula -Oxygen Flow Rate (L/min) 1 [Pulse Oximetry] -Pulse Oximetry (90-100 %) 99 87 L 87 L [Pulse Rate] -Pulse Rate (60-100 beats/min) 81 100 [Comments] -Home Oxygen Evaluation Comments [Charges] -Evaluation Charges O2 Evaluation by Pulmonary 02/21/24 02/21/24 13:06 13:15 Home O2 Evaluation [Oxygen] -Test Phase Exercise Resting -Oxygen Delivery Nasal Cannula Room Air -Oxygen Flow Rate (L/min) 2 [Pulse Oximetry] -Pulse Oximetry (90-100 %) 92 98 [Pulse Rate] -Pulse Rate (60-100 beats/min) 92 83 [Comments] -Home Oxygen Evaluation Comments VERY DIFFICULT TO GET SATS DUE TO POOR PERFUSION. USED EAR PROBE. PT REQUIRES 2 L HOME O2 WITH ACTIVITY. [Charges] -Evaluation Charges
--- NOTE | 2024-02-21 16:08 | WPDPFTINT ---
PFT Procedure Performed PFT Procedure Performed Spirometry with Pre/Post Bronchodilator Plethysmography (Lung Vol) Diffusing Cap (DLCO) Flow Vol Loop PFT Interpretation This is a pulmonary function test with pre and post-bronchodilator spirometry, plethysmography and diffusing capacity. The test was performed and results interpreted in accordance with the 2019 and 2005 ATS/ERS Task Force guidelines respectively using the Global Lung Function Initiative-2012 reference equations. Patient demonstrated good effort and cooperation. Reproducibility criteria were met. The quality of the pre bronchodilator spirometry maneuver was Grade A and post bronchodilator spirometry maneuver was Grade A. Findings: Spirometry: There is decreased maximal expiratory airflow at all lung volumes with concave expiratory flow tracing. The contour the inspiratory flow tracing is normal. The pre bronchodilator FVC is 1.48 L, 42% predicted. The pre bronchodilator FEV1 is 0.98 L, 37% predicted. The pre bronchodilator FEV1: FVC ratio 66%. The post bronchodilator FVC is 1.69 L, representing a 14% increase. The post bronchodilator FEV1 is 1.06 L, representing a 9% increase. The post bronchodilator FEV1: FVC ratio 63%. Plethysmography: The total lung capacity is 3.24 L, 52% predicted. The functional residual capacity is 1.85 L, 56% predicted. The residual volume is 1.64 L, 69% predicted. The residual volume: Total lung capacity ratio is 51%. Diffusing capacity: The diffusing capacity unadjusted for hemoglobin and carboxyhemoglobin is 6.7, 29% predicted. The diffusing capacity adjusted for alveolar volume is 2.59, 65% predicted. Impression: There is a combined obstructive and restrictive ventilatory abnormality. There are no guidelines to assign the severity of obstruction and restriction with a combined abnormality. In my opinion, given the moderate concave expiratory flow tracing, mildly decreased FEV1: FVC ratio and moderately severe restrictive abnormality, I would state there is a moderate obstructive abnormality and a moderately severe restrictive abnormality resulting in a severe decrease in the FEV1. There is significant improvement after inhaling a single dose of albuterol. The increase in residual volume to total lung volume ratio is consistent with hyperinflation. The diffusing capacity unadjusted for hemoglobin and carboxyhemoglobin is severely decreased and remains mildly decreased when adjusted for alveolar volume. There are no prior studies for comparison
== END 2024-02-21 12:46 | disposition home or self-care (01) ==
LOC: ANHPFT 12:46
PROVIDERS: PCP Nurse Practitioner; Visit Provider Internal Medicine Pulmonary Disease
DX: J44.9 Chronic obstructive pulmonary disease, unspecified (principal); Z87.891 Personal history of nicotine dependence
CPT/HCPCS: 94060; 94618; 94726; 94729

== ENCOUNTER 2024-03-08 15:08 | Emergency (ER) | payer MEDICARE, BC, SELFPAY ==
[2024-03-08] VITALS (9 sets, daily range): BP systolic 107–133; BP diastolic 70–94; PULSE 92–98; RESP 16–31; TEMP 36.3–36.8; O2SAT 90–95
--- NOTE | ~2024-03-08 | XR_ITS ---
XR chest 1V portable 03/08/2024 18:44 Indication: Generalized weakness Procedure: AP portable chest Comparison: Comparison to multiple prior studies sequentially, with oldest reviewed study dated 09/2021. Findings: Cardiomegaly. Status post median sternotomy for CABG. There is pulmonary edema. Left pleura l effusion. No pneumothorax. No acute osseous abnormality. Elevation of the left diaphragm appears ch ronic. Impression: 1: Cardiomegaly with pulmonary edema. 2: Left pleural effusion with chronic elevation of the left diaphragm. Reviewed, dictated and finalized at location B. Impression: 1: Cardiomegaly with pulmonary edema. 2: Left pleural effusion with chronic elevation of the left diaphragm.
--- NOTE | ~2024-03-08 | CT_ITS ---
EXAMINATION: CTA abdomen pelvis DATE: 03/08/2024 20:29 INDICATION: GIB, dark stool->loose red stool. Hx Vasc surg TECHNIQUE: Computed tomography (CT) of the abdomen and pelvis was performed with 100 mL Omnipaque-350 intravenous contrast, in the arterial phase. Automated exposure control and iterative reconstruction technique were employed. The dose-length product was 476.30 mGy-cm. COMPARISON: 12/22/2023. FINDINGS: Lower thorax: Aortic valve replacement. Mild cardiomegaly. Large left and moderate right pleural effu sions. Dependent atelectasis Liver: Normal. Biliary/Gallbladder: Cholelithiasis. No inflammatory change. No bile duct dilation. Pancreas: No mass or duct dilation. Spleen: Normal. Adrenals:No mass. Kidneys: No suspicious mass, obstructing stone, or hydronephrosis. Bilateral renal cortical thinning. Moderate bilateral perinephric stranding. GI tract: No small or large bowel dilation. Appendix not confidently visualized. Diverticulosis witho ut diverticulitis. Mesentery/Peritoneum: Small volume ascites. Mild diffuse mesenteric edema. Retroperitoneum: No mass. Atherosclerotic abdominal aortic and/or arterial calcifications. No aneurys m or dissection. Moderate right renal artery origin stenosis. Pelvis: Moderately distended urinary bladder with mild wall thickening. Mild prostatomegaly. Soft Tissues: Marked body wall edema. Small fat-containing uncomplicated appearing bilateral inguinal hernias. Prior inguinal hernia repair bilaterally. Bones: No acute osseous finding. IMPRESSION: Large left and moderate right pleural effusions. Mild ascites, mesenteric edema, and marked diffuse body wall edema. No focal intraluminal colonic extravasation detected extravasation. Consider GI bleeding scan for fur ther evaluation. Moderate right renal artery origin stenosis. Cystitis versus bladder wall thickening from chronic outlet obstruction. Reviewed, dictated and finalized at location K. IMPRESSION: Large left and moderate right pleural effusions. Mild ascites, mesenteric edema, and marked diffuse body wall edema. No focal intraluminal colonic extravasation detected extravasation. Consider GI bleeding scan for further evaluation. Moderate right renal artery origin stenosis. Cystitis versus bladder wall thickening from chronic outlet obstruction.
[2024-03-08 18:02] LABS: INR 2.7; Prothrombin Time 29.3 Seconds (11.1-14.7)
[2024-03-08 18:03] LABS: Partial Thromboplastin Time 43.8 Seconds (22.3-36.8)
[2024-03-08 18:05] LABS: Alanine Aminotransferase 61 U/L (6-50); Albumin Level 3.6 g/dL (3.5-5.1); Alkaline Phosphatase 230 U/L (38-126); Anion Gap 9 mmol/L (4-12); Aspartate Amino Transferase 49 U/L (17-59); Bilirubin,Total 2.2 mg/dL (0.2-1.3); Blood Urea Nitrogen 16 mg/dL (9-20); Calcium 8.9 mg/dL (8.4-10.2); Carbon Dioxide 32 mmol/L (22-30); Chloride 97 mmol/L (98-107); Estimated CRCL calculation 62 ml/min; Estimated Glomerular Filt Rate > 60; Glucose 80 mg/dL (65-110); Lipase 234 U/L (23-300); Magnesium 1.5 mg/dL (1.6-2.3); Potassium 3.5 mmol/L (3.4-5.0); Sodium 138 mmol/L (137-145)
--- NOTE | 2024-03-08 18:33 | ECG_ITS ---
Test Date: 2024-03-08 19:00:44 Measurements Intervals [place] Rate: 95 P: 99 [place]: 204 QRS: -87 QRSD: 133 T: 64 QT: 404 QTc: 508 Interpretive Statements SINUS RHYTHM LEFT AXIS DEVIATION BORDERLINE AV CONDUCTION DELAY LEFT BUNDLE BRANCH BLOCK BASELINE ARTIFACT- I, II, III, AVR, AVL, AVF, V1 ABNORMAL ECG No previous ECG available for comparison Electronically Signed On 03-08-2024 20:25:03 CDT by Esau Devine D.O.
[2024-03-08 18:52] LABS: Basophils Percent Auto 0.8 % (0.2-1.2); Eosinophils Absolute Auto 0.3 K/mm3 (0-0.3); Eosinophils Percent Auto 5.6 % (0-4.4); Hematocrit 36.1 % (42.0-52.0); Hemoglobin 11.8 g/dL (14.0-18.0); Immature Granulocyte Absolute 0.01 K/mm3 (0.00-0.031); Immature Granulocyte Percent A 0.2 % (0-0.5); Lymphocytes Absolute Auto 0.41 K/mm3 (0.9-3.2); Lymphocytes Percent Auto 8.2 % (18.3-44.2); Mean Corpuscular HGB Conc 32.7 g/dl (32-36); Mean Corpuscular Volume 91.9 fl (80-100); Mean Platelet Volume 10.3 fl (7.4-10.4); Monocytes Absolute Auto 0.6 K/mm3 (0.1-0.6); Monocytes Percent Auto 12.3 % (2.6-8.5); Neutrophils Absolute Auto 3.7 K/mm3 (1.3-6.7); Neutrophils Percent Auto 72.9 % (45.5-73.1); Platelet Count Result 180 k/mm3 (150-375); Red Blood Count 3.93 M/mm3 (4.6-6.20); Red Cell Distribution Width 18.6 % (11.5-14.5)
[2024-03-08] MEDS: PANTOPRAZOLE SODIUM IV 40 MG VIAL IV PUSH (18:58)
[2024-03-08] MEDS: LACTATED RINGERS 1,000 ML 999 ML IV CONT (18:58)
--- NOTE | 2024-03-08 19:11 | PC.NURSE ---
Assumed care of pt from DAVE Oh at this time.
[2024-03-08 19:15] LABS: Troponin I 0.041 ng/mL (0.000-0.034)
--- NOTE | 2024-03-08 19:28 | ED.GIBLEED ---
HPI - GI Bleed General Chief complaint: GI Bleed Stated complaint: blood in stool Time Seen by Provider: 03/08/24 18:25 History of Present Illness HPI Narrative: This is a 78-year-old male with a past medical history significant for congestive heart failure, coronary artery disease, peripheral vascular disease, COPD not requiring oxygen. Today patient presents the emergency department for evaluation after large voluminous bowel movement filled with dark blood. Patient states he has a history of GI bleeding in the past. He states he had a sudden pressure sensation in his abdomen earlier this afternoon and went to the bathroom and noted he had very dark tarry stool. He notes a recurrence of that episode about an hour later that he had bright red blood that filled the toilet bowl. He was concerned his family called 911. The patient has had a recent procedure with a hernia repair otherwise is of no other recent procedures or hospital visits. Denies any chest pain, shortness present nausea, vomiting headache, vision changes, weakness, fatigue, neuropathy or syncope. He is on warfarin and does follow for frequent INR checks. Patient does not recall last time he had a colonoscopy or an upper endoscopy no history of cirrhosis or varices to his knowledge. Related Data Home Medications Medication Instructions Recorded Confirmed carvedilol 6.25 mg tablet 6.25 mg PO Q12H 07/02/19 02/15/24 clopidogrel 75 mg tablet 75 mg PO DAILY 07/02/19 02/15/24 furosemide 20 mg tablet 20 mg PO QAM 10/09/21 02/15/24 laeubxgh-cn-vxmgi 300 mcg-K 60 1 tablet PO DAILY 06/29/23 02/15/24 mcg-lycop 600 mcg-lutein 300 mcg tablet (Centrum Silver Men) sacubitril 24 mg-valsartan 26 mg 1 tablet PO DAILY 06/29/23 02/15/24 tablet (Entresto) warfarin 1 mg tablet 2 mg PO 3XW 06/29/23 02/15/24 warfarin 4 mg tablet 4 mg PO 4XW 06/29/23 02/15/24 atorvastatin 20 mg tablet 20 mg PO QAM 12/22/23 02/15/24 Allergies Allergy/AdvReac Type Severity Reaction Status Date / Time venom-honey bee Allergy Severe Swelling Verified 02/15/24 13:59 of Lip/Tongue/Throat Review of Systems Review of Systems: Negative unless otherwise reviewed above [facility] Past Medical History Medical History CHF (congestive heart failure) EF 42% as of 06/2021 COPD (chronic obstructive pulmonary disease) Coronary artery disease involving [place] coronary artery of [place] heart DVT (deep venous thrombosis) Heart attack Heart disease History of blood clots Hx of cancer of lung Hyperlipidemia Lower extremity surgery planned PAD (peripheral artery disease) Positive colorectal cancer screening using Cologuard test PVD (peripheral vascular disease) Surgical History Surgical History H/O inguinal hernia repair bilateral 10/21/21 Robotic assisted laparoscopic recurrent right inguinal hernia repair with Bard 3D mid weight mesh 12/30/23 History of lung biopsy Hx of CABG x3, 2011 Family History Family History Sibling , age 58 Brain cancer Father Acute myocardial infarction Mother Dementia Social History Social History Smoking packs per day: 1.5 Smoking cigarettes per day: 30.0 Years smoked: 41 Smoking pack-years: 61.50 Smoking status: Former smoker Tobacco type: cigarettes Second hand tobacco smoke exposure: No Smoking end date: 08/15/05 Alcohol intake: current Drinks per week: 1 Alcohol use details: BEERS Substance use: never Substance use type: does not use Do You Feel Safe in your Home?: Yes Lack of Transportation: No Lack of Food: Never True Current Housing: I Have Housing Concerned About Future Housing: No Difficulty Paying Gas/Electric Bills: No Difficulty Paying for Meds
[2024-03-09] VITALS (20 sets, daily range): BP systolic 95–130; BP diastolic 60–90; PULSE 88–99; RESP 20–27; O2SAT 90–100
[2024-03-09 00:25] LABS: Hematocrit 32.7 % (42.0-52.0); Hemoglobin 10.7 g/dL (14.0-18.0)
--- NOTE | 2024-03-09 02:00 | PC.NURSE ---
Pt placed on hospital bed by SUNITHA Albarran.
--- NOTE | 2024-03-09 05:36 | PC.NURSE ---
Pt to be transfered to [facility]. Dr. Fuchs completed xfr form, consent for transfer obtained by this RN. PCS completed and on chart. copies still to be made and placed in management mailbox.
[2024-03-09 07:04] LABS: Hematocrit 34.7 % (42.0-52.0); Hemoglobin 11.3 g/dL (14.0-18.0)
--- NOTE | 2024-03-09 07:48 | PC.NURSE ---
Pt Dora called asking for an update, This RN informed pt that pt is still in the ED and still waiting for a bed assignment at [facility].
--- NOTE | 2024-03-09 12:30 | PC.NURSE ---
Pt Dora called again asking for an update, This RN informed pt that pt is still in the ED and still waiting for a bed assignment at [facility] in [place]. Dora requested to be notified when pt is given a bed at [facility] and when pt is scheduled to leave the ED
--- NOTE | 2024-03-09 20:31 | PC.NURSE ---
this rn spoke with Dora, pt per pt request to give update on patient.
--- NOTE | 2024-03-09 20:58 | ECG_ITS ---
Test Date: 2024-03-09 20:58:46 Measurements Intervals [place] Rate: 90 P: 33 [place]: 198 QRS: 240 QRSD: 133 T: 71 QT: 423 QTc: 519 Interpretive Statements SINUS RHYTHM WITH OCCASIONAL VENTRICULAR PREMATURE COMPLEXES RIGHT AXIS DEVIATION LEFT BUNDLE BRANCH BLOCK BASELINE ARTIFACT- I, II, AVR, AVL ABNORMAL ECG Compared to ECG 03/08/2024 19:00:44 NO SIGNIFICANT CHANGE Electronically Signed On 03-10-2024 10:40:20 CDT by Esau Devine D.O.
[2024-03-10] VITALS (9 sets, daily range): BP systolic 120–136; BP diastolic 66–89; PULSE 80–89; RESP 18–29; TEMP 36.8; O2SAT 91–100
[2024-03-10 01:05] LABS: Hematocrit 34.1 % (42.0-52.0)
--- NOTE | 2024-03-10 07:53 | PC.NURSE ---
home meds ordered per Dr. Rincon. withholding blood thinners until INR is drawn
[2024-03-10] MEDS: ATORVASTATIN 20 MG TABLET PO (08:22)
[2024-03-10] MEDS: SACUBITRIL/VALSARTAN 24-26 MG TABLET 1 TAB PO (08:22)
[2024-03-10] MEDS: FUROSEMIDE 20 MG TABLET PO (08:22)
[2024-03-10] MEDS: carvediloL 6.25 MG TABLET PO (08:22)
--- NOTE | 2024-03-10 08:34 | ECG_ITS ---
Test Date: 2024-03-10 08:34:46 Measurements Intervals [place] Rate: 85 P: 31 [place]: 183 QRS: 263 QRSD: 131 T: 64 QT: 429 QTc: 512 Interpretive Statements SINUS RHYTHM RIGHT AXIS DEVIATION LEFT BUNDLE BRANCH BLOCK BASELINE ARTIFACT- I, II, AVR, V1, V6 ABNORMAL ECG Compared to ECG 03/09/2024 20:58:46 NO SIGNIFICANT CHANGE Electronically Signed On 03-10-2024 10:41:05 CDT by Esau Devine D.O.
[2024-03-10 08:41] LABS: INR 3.8; Prothrombin Time 37.3 Seconds (11.1-14.7)
--- NOTE | 2024-03-10 12:49 | PC.NURSE ---
[facility] [address] [phone]
== END 2024-03-10 15:44 | disposition short-term general hospital (02) ==
PROVIDERS: Emergency Medicine; Physician Assistant; Student in an Organized Health Care Education/Training Program; Emergency Provider Student in an Organized Health Care Education/Training Program; PCP Nurse Practitioner
DX: K92.2 Gastrointestinal hemorrhage, unspecified (principal); R79.89 Other specified abnormal findings of blood chemistry; I50.9 Heart failure, unspecified; I73.9 Peripheral vascular disease, unspecified; J44.9 Chronic obstructive pulmonary disease, unspecified; I25.10 Atherosclerotic heart disease of native coronary artery without angina pectoris; I25.2 Old myocardial infarction; E78.5 Hyperlipidemia, unspecified; Z95.1 Presence of aortocoronary bypass graft; Z85.118 Personal history of other malignant neoplasm of bronchus and lung; Z86.718 Personal history of other venous thrombosis and embolism; Z87.891 Personal history of nicotine dependence; Z79.02 Long term (current) use of antithrombotics/antiplatelets; Z79.899 Other long term (current) drug therapy; Z79.01 Long term (current) use of anticoagulants; I44.7 Left bundle-branch block, unspecified; I49.3 Ventricular premature depolarization; R94.31 Abnormal electrocardiogram [ECG] [EKG]; R93.41 Abnormal radiologic findings on diagnostic imaging of renal pelvis, ureter, or bladder; I70.1 Atherosclerosis of renal artery; R18.8 Other ascites
CPT/HCPCS: 36415; 71045; 74174; 80053; 82248; 83690; 83735; 84484; 85014; 85018; 85025; 85610; 85730; 86850; 86900; 86901; 93005; 96361; 96374; 99285; A9270; J2470; J7120; Q9967

== ENCOUNTER 2024-06-07 12:30 | Outpatient (RCR) | payer MEDICARE, BC, SELFPAY | END 2024-06-14 12:39 | disposition home or self-care (01) | LOC: ANHCPREHAB 12:30 | PROVIDERS: PCP Nurse Practitioner; Visit Provider Internal Medicine Cardiovascular Disease | DX: I50.89 Other heart failure (principal) | CPT/HCPCS: 93798 ==